=== PATIENT | male | born 1950 | race Caucasian/White ===

== ENCOUNTER 2019-04-01 16:12 | Inpatient (IN) ==
--- NOTE | 2019-04-01 16:23 | CT Scan Report ---
CT SCAN OF THE BRAIN WITHOUT IV CONTRAST CLINICAL HISTORY: Left-sided weakness. Slurred speech. COMPARISON STUDY: No priors. TECHNIQUE: Unenhanced axial CT scan of the brain is performed from the vertex to the skull base. A do se lowering technique was utilized adhering to the principles of ALARA. CT DOSE: 614.27 mGy.cm FINDINGS: Brain parenchyma: There are age-related involutional changes noting mild subcortical and periventric ular microangiopathic change. An 8 mm low-attenuation focus is suggested in the right aspect of the p ons on image #11. There is no hemorrhage, mass effect, or evidence of acute territorial ischemia by C T criteria. Haywood-white matter differentiation is preserved. No extra-axial fluid collection is seen. Ventricles, sulci, cisterns: Prominent secondary to involutional change. Intracranial vasculature: There is atherosclerotic calcification of the cavernous carotid and vertebr al arteries. Calvarium: Unremarkable. Sinuses and mastoids: The visualized paranasal sinuses are clear. The mastoid air cells are well pneu matized. Orbits: The bony orbits are grossly intact. IMPRESSION: 1. There is no hemorrhage, mass effect, or evidence of acute territorial ischemia by CT criteria. 2. An 8 mm low-attenuation focus is suggested in the leopoldo and may represent an age indeterminant lacu geraldo infarct. Electronically signed by: Carlos Toribio M.D. 04/01/2019 4:22 PM
[2019-04-01] MEDS ORDERED: ONDANSETRON INJ 2 MG/ML 2 ML VIAL ONE (16:24)
[2019-04-01] MEDS ORDERED: ONDANSETRON INJ 2 MG/ML 2 ML VIAL IV STA ×2 (16:26→16:52)
[2019-04-01] MEDS ORDERED: ALTEPLASE For Stroke IV STA (16:27)
[2019-04-01 16:37] LABS: Basophils # (auto) 0.04 K/uL (0-0.2); Basophils % (auto) 0.5 %; Eosinophils # (auto) 0.16 K/uL (0-0.5); Eosinophils % (auto) 1.8 %; Hematocrit (blood only) 41.4 % (42-52); Hemoglobin 14.8 g/dL (14.0-18.0); Immature Granulocytes # (auto) 0.02 K/uL (0.00-0.02); Immature Granulocytes % (auto) 0.2 %; Lymphocytes # (auto) 2.72 K/uL (1.2-3.4); Lymphocytes % (auto) 30.7 %; Mean Corpuscular Hemoglobin 30.6 pg (25-34); Mean Corpuscular Hgb Conc 35.7 g/dL (32-36); Mean Corpuscular Volume 85.7 fL (80-100); Mean Platelet Volume 10.1 fL (7.4-10.4); Monocytes # (auto) 0.58 K/uL (0.11-0.59); Monocytes % (auto) 6.5 %; Neutrophils # (auto) 5.34 K/uL (1.4-6.5); Neutrophils % (auto) 60.3 %; Platelet Count 187 K/uL (130-400); RDW Coefficient of Variation 12.9 % (11.5-14.5); RDW Standard Deviation 40.9 fL (36.4-46.3); Red Blood Count 4.83 M/uL (4.7-6.1); White Blood Count 8.86 K/uL (4.8-10.8)
[2019-04-01] MEDS ORDERED: Alteplase Bolus 9 MG in SYRINGE 0 ML IV ONE (16:38)
[2019-04-01] MEDS ORDERED: PRIMARY PLUMSET, PE LINED TUBING, 113 IN, NON-DEHP (2260-0500) IV ONE (16:39)
[2019-04-01] MEDS ORDERED: ALTEPLASE, RECOMBINANT 81 MG in EMPTY BAG 0 ML IV ONE (16:39)
[2019-04-01 16:54] LABS: INR 1.1 (0.9-1.1); Partial Thromboplastin Ratio 0.9; Partial Thromboplastin Time 24.2 Seconds (21.0-31.0); Prothrombin Time 11.1 Seconds (9.0-12.0)
[2019-04-01 16:55] LABS: Alanine Aminotransferase 28 U/L (12-78); Albumin Level 4.3 gm/dl (3.4-5.0); Aspartate Aminotransferase 17 U/L (15-37); BUN Creatinine Ratio 14.7 (10-20); Blood Urea Nitrogen 16 mg/dl (7-18); Calcium 9.4 mg/dl (8.5-10.1); Carbon Dioxide 26 mmol/L (21-32); Chloride 105 mmol/L (98-107); Creatinine Clr Calc Pharmacy 84.3 ml/min; Est GFR (African American) 80.6; Est GFR (Non-African American) 69.6; Glucose 103 mg/dl (70-99); Magnesium 2.1 mg/dl (1.8-2.4); Potassium 3.2 mmol/L (3.5-5.1); Sodium 140 mmol/L (136-145)
[2019-04-01 17:00] LABS: Albumin Globulin Ratio 1.3 (0.9-2); Alkaline Phosphatase 85 U/L (45-117); Bilirubin,Total 0.5 mg/dl (0.2-1); Globulin 3.3 gm/dl (2.5-4.0); Total Protein 7.6 gm/dl (6.4-8.2); Troponin I < 0.015 ng/ml (0-0.045)
[2019-04-01] MEDS: SODIUM CHLORIDE 0.9% 500 ML IV SCH (17:00)
--- NOTE | 2019-04-01 17:13 | XRay Report ---
SINGLE VIEW CHEST CLINICAL HISTORY: Dyspnea. FINDINGS: 2 AP, portable, upright chest radiographs are obtained. No prior studies are available for comparison at the time of dictation. The examination is degraded by portable technique and patient ro tation. The heart is enlarged. The pulmonary vasculature is noncongested. There is bibasilar atelecta sis. The lungs and pleural spaces are otherwise clear. No pneumothorax is seen. The skeletal structur es appear osteopenic. The bony thorax is grossly intact. IMPRESSION: Cardiomegaly with no acute cardiopulmonary abnormality. Electronically signed by: Carlos Toribio M.D. 04/01/2019 5:11 PM
[2019-04-01] MEDS ORDERED: PROMETHAZINE HCL 6.25 MG in SODIUM CHLORIDE 0.9% 50 ML IV STA (17:18)
[2019-04-01] MEDS ORDERED: PROMETHAZINE 6.25 MG/50.25 ML NSS IV ONE (17:29)
[2019-04-01] MEDS ORDERED: POTASSIUM CHLORIDE / WTR 10 MEQ/100 ML PLCT IV ONE (17:44)
[2019-04-01] MEDS ORDERED: HydrALAZINE HCL 20 MG/ML VIAL IV STA (17:46)
--- NOTE | 2019-04-01 18:07 | History & Physical Report ---
Date of Service April 01, 2019 Assessment & Plan (1) Ischemic stroke: This is a 68-year-old male with significant PMH of HTN, HLD, GERD, AAA 3.6 cm monitored annually, prediabetes, history of nephrolithiasis who presents to [facility] ED secondary to strokelike symptoms 1.5 hours prior to arrival. Stroke alert initiated [facility] [address] brain negative for acute hemorrhage, but did reveal 8 mm low-tension focus in the right leopoldo. Pt met criteria for TPA administered 1641 with spontaneous improvement to RLE/RUE weakness and numbness along with slurred speech Continues with mild dysarthria and c/o difficulty swallowing CBC and CMP relatively unremarkable except for mild hypokalemia K 3.2 Admit to ICU for 24hr post TPA protocol Maintain SBP < 180/105 Hydralazine 10mg IV x 1 Stat given in ED due to 200s/110s Hydralazine 10mg q6hr prn SBP > 180 NPO for now pt passed dysphagia screen in ED but c/o trouble swallowing, freq coughing and noticeable L facial droop Repeat CT head in 24 hr MRI brain ECHO Carotid Doppler Fasting lipid panel, A1C Increase atorvastatin to 80mg daily He is on ASA 81mg at baseline - Hold ASA first 24 hours will need dual antiplatelet therapy after repeat CT negative IVF 80cc/hr per tele neurologist Neuro checks/ aspiration precautions PT/OT/ST consulted (2) Hypokalemia: K 3.2 replete with KCL 10meq IV x 3 repeat bmp in a.m. (3) HTN (hypertension): Patient significantly hypertensive in ED s/p TPA Received IV hydralazine 10 mg x 1 Hydralazine 10 mg IV as needed for SBP greater than 180 Maintain BP less than 180/105 further management per ICU (4) HLD (hyperlipidemia): on atorvastatin 20mg at outpt increase to 80mg for high intensity statin (5) Pre-diabetes: Last A1C 5.7 02/2019 repeat a1c in a.m. ICU hyperglycemic protocol (6) GERD (gastroesophageal reflux disease): On omeprazole as out pt place on IV [id number] while NPO (7) DVT prophylaxis: SCD/TEDS Disposition: admitted to ICU s/p TPA; case management consulted Follow up: PCP Dr. Leighann Colunga upon discharge along with appropriate neurology follow up Patient was seen and examined in collaboration with Dr. Beltran, please see addendum Starting 04/02/19 patient will be under the care of Dr. Davila History of Present Illness Chief Complaint: Stroke like sx 1.5 hr [employer]. Primary Care Provider: Juanita Colunga DO This is a 68-year-old male with significant PMH of HTN, HLD, GERD, AAA 3.6 cm monitored annually, prediabetes, history of nephrolithiasis who presents to [facility] ED secondary to strokelike symptoms 1.5 hours prior to arrival. was at bedside. He was sitting at his computer when his tongue felt, "heavy." He further began experiencing right upper and lower extremity weakness, numbness, " my whole right side went numb." noticed patient having significant slurred speech. EMS was called and stroke alert was initiated. In ED patient underwent CT scan of brain which revealed 8 mm low attention focus in the right leopoldo, but no evidence of hemorrhage. He met criteria for TPA; therefore, this was administered at 16:42. He had spontaneous resolution of right lower extremity and upper extremity numbness/weakness and improvement in speech. After administration he did have significant nausea and therefore Zofran and Phenergan were also administered. During ED evaluation he did have episode of bradycardia with heart rates in high 30s, low 40s which was felt to be secondary to vagal stimulation due to nausea and diaphoresis. Symptoms resolved transiently. During my evaluation patient feels much improved, but very drowsy. He is complaining of right calf cramping. He denies f/c/s, recent illness, dizziness, lightheadedness, syncope, change in vision, change in hearing, chest pain, shortness breath, cough, hemoptysis, palpitations, nausea, vomiting, abdominal pain, change in bowel or urinary habits. He does currently feel he is having difficulty swallowing. He denies hx of CVA or family hx of CVA. Allergies Allergy/AdvReac Type Severity Reaction Status Date / Time No Known Allergies Allergy Verified 04/01/19 16:30 Home Medications Home Medications Medication Instructions Recorded Confirmed Type aspirin 81 mg PO QAM 07/29/18 04/01/19 History amlodipine 5 mg PO DAILY 04/01/19 04/01/19 History atorvastatin 20 mg PO DAILY 04/01/19 04/01/19 History hydrochlorothiazide 12.5 mg PO DAILY 04/01/19 04/01/19 History lisinopril 30 mg PO BID 04/01/19 04/01/19 History omeprazole 20 mg PO DAILY 04/01/19 04/01/19 History Past Med/Surg History Medical History HLD (hyperlipidemia) GERD (gastroesophageal reflux disease) AAA (abdominal aortic aneurysm) 3.6 cm monitored annually with US - last 06/2018 History of nephrolithiasis Pre-diabetes Ischemic stroke Kidney stones HTN (hypertension) Surgical History History of arthroscopic surgery of shoulder History of lumbar laminectomy No pertinent past surgical history Family History Father Throat cancer Mother Dementia Social History Preferred Language: Nicaraguan Communication Ability: Effective Careers Counsellor Required: No Beliefs That Will Affect Care: None marital status: Current Living Situation: Spouse Feels Safe at Home: Yes Smoking Status: Never smoker packs per day: 1 ; Hx Alcohol Use: No Hx Substance Use: No Review of Systems Review of Systems: All systems reviewed & are unremarkable except as noted in HPI & below Physical Exam Physical Exam: Constitutional: WD/WN, fatigue/ill appearing male, vitals as above, NAD, sitting up in bed, pleasant, conversing easily Head: Normocephalic, Atraumatic Eyes: PERRL, conjunctivae normal, anicteric sclerae, slight L eye ptosis ENMT: external ear and nose normal, oropharynx dry mucous membranes Neck: trachea midline, no thyromegaly normal visual inspection Respiratory: normal respiratory effort, lungs clear to auscultation, no wheeze, rales, rhonchi. Normal insp/exp effort, no accessory muscle use Cardiovascular: RRR, no murmur, no edema Vessels: no JVD or carotid bruit Chest: normal inspection of chest Abdomen: normal bowel sounds, soft, nontender, no hepatosplenomegaly Musculoskeletal: no cyanosis or clubbing, extremities motor strength 5/5 Skin: no rashes, warm and dry normal turgor Neurologic: PERRL, EOMI, accommodation nl, mild left facial droop with mild residual dysarthria CN's II-XI intact bilaterally and moves all extremities, point to point intact, negative pronator drift Psychiatric: A+Ox3, euthymic affect Lymphatic: no cervical or axillary lymphadenopathy : deferred Results & Data Vital Signs (Past 12 Hours) Vital Signs Temp Pulse Pulse Resp BP BP Pulse Ox 04/01/19 17:31 76 21 199/105 H 92 04/01/19 17:30 68 14 99 04/01/19 17:17 73 20 182/97 H 100 04/01/19 17:15 68 21 176/116 H 04/01/19 17:13 61 178/77 H 99 04/01/19 17:12 62 14 178/77 H 99 04/01/19 17:02 73 100 04/01/19 17:00 75 157/89 H 100 04/01/19 16:59 72 162/95 H 100 04/01/19 16:57 70 19 157/89 H 99 04/01/19 16:51 68 177/95 H 100 04/01/19 16:50 63 199/115 H 99 04/01/19 16:47 70 70 19 181/104 H 181/104 H 98 04/01/19 16:45 60 99 04/01/19 16:42 70 19 177/91 H 98 04/01/19 16:34 91 04/01/19 16:32 59 L 154/94 H 95 04/01/19 16:31 63 98 04/01/19 16:22 59 L 159/97 H 90 04/01/19 16:12 36.4 C L 59 L 22 159/97 H 91 Laboratory Results Short CBC 04/01/19 Range/Units 16:23 WBC 8.86 (4.8-10.8) K/uL Hgb 14.8 (14.0-18.0) g/dL Hct 41.4 L (42-52) % Plt Count 187 (130-400) K/uL BMP 04/01/19 16:23 Sodium 140 Potassium 3.2 L Chloride 105 Carbon Dioxide 26 BUN 16 Creatinine 1.10 Glucose 103 H Calcium 9.4 Cardiac Enzymes 04/01/19 Range/Units 16:23 Troponin I < 0.015 (0-0.045) ng/ml Liver Function 04/01/19 Range/Units 16:23 Total Bilirubin 0.5 (0.2-1) mg/dl AST 17 (15-37) U/L ALT 28 (12-78) U/L Alkaline Phosphatase 85 (45-117) U/L Albumin 4.3 (3.4-5.0) gm/dl Diagnostic Findings CXR: IMPRESSION: Cardiomegaly with no acute cardiopulmonary abnormality. Head CT: IMPRESSION: 1. There is no hemorrhage, mass effect, or evidence of acute territorial ischemia by CT criteria. 2. An 8 mm low-attenuation focus is suggested in the leopoldo and may represent an age indeterminant lacunar infarct. Medications Administered Sodium Chloride (Nss) 500 mls @ 80 mls/hr IV .[id number] RITCHIE Stop: 05/01/19 17:14 Last Admin: 04/01/19 17:00 Dose: 80 mls/hr Documented by: [id number] Potassium Chloride (K Rohit / Wtr) 10 meq in 100 mls @ 100 mls/hr IV ONE ONE Stop: 04/01/19 18:43 Last Admin: 04/01/19 17:47 Dose: 100 mls/hr Documented by: [id number] Discontinued Medications Alteplase, Recombinant (Activase For Stroke) 1 ea IV NOW STA; Protocol Stop: 04/01/19 16:28 Last Admin: 04/01/19 16:59 Dose: Not Given Documented by: [id number] Hydralazine HCl (Hydralazine Hcl) 10 mg IV NOW STA Stop: 04/01/19 17:47 Last Admin: 04/01/19 17:57 Dose: 10 mg Documented by: [id number] Alteplase, Recombinant 81 mg/ (EMPTY BAG) 81 mls @ 81 mls/hr IV ONCE ONE Stop: 04/01/19 16:40 Last Infusion: 04/01/19 17:31 Dose: 0 mls/hr Documented by: [id number] Cosigned by: [id number] Admin: 04/01/19 16:46 Dose: 81 mls/hr Documented by: [id number] Cosigned by: [id number] Alteplase, Recombinant 9 mg/ (Syringe) 9 mls @ 9 mls/min IV ONCE ONE Stop: 04/01/19 16:39 Last Admin: 04/01/19 16:42 Dose: 9 mls/min Documented by: [id number] Cosigned by: [id number] Promethazine HCl 6.25 mg/ (Sodium Chloride) 50.25 mls @ 201 mls/hr IV NOW STA Stop: 04/01/19 17:32 Last Admin: 04/01/19 17:30 Dose: Not Given Documented by: [id number] Ondansetron HCl (Zofran) Confirm Administered Dose 4 mg .ROUTE .STK-MED ONE Stop: 04/01/19 16:25 Last Admin: 04/01/19 16:33 Dose: Not Given Documented by: [id number] Ondansetron HCl (Zofran) 4 mg IV NOW STA Stop: 04/01/19 16:27 Last Admin: 04/01/19 16:25 Dose: 4 mg Documented by: [id number] Ondansetron HCl (Zofran) 4 mg IV NOW STA Stop: 04/01/19 16:53 Last Admin: 04/01/19 16:54 Dose: 4 mg Documented by: [id number] Promethazine HCl (Phenergan) Confirm Administered Dose 6.25 mg IV .STK-MED ONE Stop: 04/01/19 17:30 Last Admin: 04/01/19 17:30 Dose: 6.25 mg Documented by: [id number] ECG Rate (beats per minute): 63 Rhythm: normal sinus Code Status & VTE Plan Code Status Full Code VTE Prophylaxis Plan VTE Prophylaxis will be ordered: Yes Supervising Physician Co-Signing Physician Notes I, Dr. Luca Beltran, have seen and examined the patient with physician administration assistant and would like to comment that: Dwight Patino is a 68 year old male with sudden right sided weakness and speech being affected and because of strong suspicion of ACUTE STROKE and patient was ADMINISTERED TPA in the ED. During the infusion of TPA, patients neurological symptoms appeared to have resolved as per emergency room medical staff. Patients blood pressure noted to be very elevated above systolic of 200. Patient was given IV hydralazine as recommended by ICU physician. As per A [place] [employer] there are some recommendations to keep blood pressure less than 180/105 for 24 hours after administration of TPA (V alteplase). Home dose aspirin to be held for now Patient will continued to be under the care of ICU medical staff and ICU physician since he is after TPA as per hospital protocol. Review of the admission CT head imaging: (There is no hemorrhage, mass effect, or evidence of acute territorial ischemia by CT criteria. An 8 mm low-attenuation focus is suggested in the leopoldo and may represent an age indeterminant lacunar infarct.) is generally unrevealing as to the location of stroke Routine Brain MRI is ordered to follow up on further brain imaging. Echocardiogram is ordered to rule out any potential embolic source of stroke or cardiac anomalies such as atrial septal defect Increase to high intensity statin Speech/swallow evaluations, PT/OT evaluations Monitor and replete any electrolyte deficiencies Agree with other assessment and plans and history as documented by physician administration assistant On physical exam in the ED General: no acute distress, patient appears to be comfortable Neck: normal visual inspection Eyes: ocular movements intact, pupils are equal and reactive to light Lungs: clear to auscultation bilaterally, no wheezing, no stridor Heart: heart rate is regular in rate and rhythm Abdomen: soft, nontender, positive bowel sounds Extremities/Neuro: no gross facial droop, no tongue deviation, muscle strength is 5/5 and symmetric of upper and lower extremities when patient was examined by hospitalist team after the TPA Patient currently doing well in the ICU bed My colleague Dr. Davila will be the hospitalist physician for the patient starting on 04/02/19
--- NOTE | 2019-04-01 18:24 | Critical Care Consultation ---
Date of Consultation April 01, 2019 Assessment & Plan (1) Ischemic stroke: --Ischemic stroke CT head did not show any acute hemorrhage or acute stroke, age indeterminate lacunar infarct in the leopoldo Patient got TPA in the ER. Keep systolic blood pressure less than 180 and diastolic blood pressure less than 105 Monitor neurological checks, aspiration precautions Keep patient n.p.o. for the time being IV hydralazine 10 mg every 6 hours for systolic blood pressure greater than 180 The blood pressure still stays high we will start the patient on clevidipine drip. Patient has baseline low heart rate will keep away from beta-blockers. Keep blood sugar between 140-[address] head in the morning. Patient was already on aspirin, should be started on clopidogrel within 48 hours. Resume aspirin after [address] head negative EKG: Normal sinus rhythm, no ST-T wave changes appreciated, left axis deviation, heart rate of 63, QTc 444 --Hypokalemia Will replace it Follow magnesium and phosphorus --History of hypertension Hold p.o. medications for the time being --Dyslipidemia On atorvastatin at home Will need higher dose of atorvastatin once he is able to swallow -- Speech eval in the morning --IPC's for DVT prophylaxis Present on Admission?: Yes (2) HTN (hypertension): History of Present Illness Reason for Consultation: Ischemic stroke status post TPA History of Present Illness 68-year-old male with past medical history of hypertension, GERD, dyslipidemia abdominal aortic aneurysm 3.6 cm, nephrolithiasis was brought in to the hospital with strokelike symptoms 1.5 IR prior to arrival. As per the patient was sitting on a computer where he suddenly sat feeling warm diaphoretic he denies any chest pain but his speech was slurred. He started experiencing right upper and lower extremity numbness. In the ED patient met the criteria for TPA and was given TPA at 1642. There was spontaneous resolution of the right lower extremity and right upper extremity numbness and weakness. In the ED after TPA was complaining of nausea for which he got Zofran. He did have one episode of bradycardia where he went into high 30s low 40s which resolved on its own. Approximately 1 week ago he had similar symptoms but they were not this pronounced. At the time of examination patient was drowsy but arousable and answering all the questions appropriately. He did still have slurred speech. Tongue was deviated to the left. Left labial fold and left angle of the mouth flat. Left eye ptosis appreciated. Vision intact, patient able to move all his extremities with 5 out of 5 strength. Patient denied any headache, no chest pain, no abdominal pain. Nauseous. At the same time nurse offered him some free water to which he started choking. He does state that he has difficulty swallowing. Denies any shortness of breath, no cough. 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 Denies any allergies to any medication. Allergies Allergy/AdvReac Type Severity Reaction Status Date / Time No Known Allergies Allergy Verified 04/01/19 16:30 Home Medications Home Medications Medication Instructions Recorded Confirmed Type aspirin 81 mg PO QAM 07/29/18 04/01/19 History amlodipine 5 mg PO DAILY 04/01/19 04/01/19 History atorvastatin 20 mg PO DAILY 04/01/19 04/01/19 History hydrochlorothiazide 12.5 mg PO DAILY 04/01/19 04/01/19 History lisinopril 30 mg PO BID 04/01/19 04/01/19 History omeprazole 20 mg PO DAILY 04/01/19 04/01/19 History Patient History Medical History Kidney stones HTN (hypertension) Surgical History No pertinent past surgical history Family History Other No significant family history Social History Preferred Language: Palestinian marital status: Current Living Situation: Spouse Feels Safe at Home: Yes Smoking Status: Former smoker Review of Systems Review of Systems: All systems reviewed & are unremarkable except as noted in HPI & below Physical Exam Constitutional: WD/WN, vitals as above well developed and well nourished Eyes: PERRL, conjunctivae normal, anicteric sclerae + eyelid abnormality (Ptosis left eye) ENMT: Mouth: + lip abnormality (Left angle of the mouth flat and left labial fold flat) Mallampati Class: III Respiratory: normal respiratory effort Auscultation: + crackles (Minimal bilateral lower lobes); no rhonchi and no wheezes Cardiovascular: RRR, no murmur, no edema Gastrointestinal (Abdomen): normal bowel sounds, soft, nontender, no hepatosplenomegaly Musculoskeletal: no cyanosis or clubbing, extremities motor strength 5/5 Skin: no rashes, warm and dry Neurologic: normal touch/pain/proprioception and awake Speech / Cognition: + abnormal speech (Slurred) Cranial Nerves: PERRL, normal accommodation, EOM intact bilaterally and tongue midline (Deviated to the left) Psychiatric: A+Ox3, euthymic affect Lymphatic: no cervical or axillary lymphadenopathy Results & Data Vital Signs (Past 12 Hours) Vital Signs Temp Pulse Pulse Resp BP BP Pulse Ox 04/01/19 17:31 76 21 199/105 H 92 04/01/19 17:30 68 14 99 04/01/19 17:17 73 20 182/97 H 100 04/01/19 17:15 68 21 176/116 H 04/01/19 17:13 61 178/77 H 99 04/01/19 17:12 62 14 178/77 H 99 04/01/19 17:02 73 100 04/01/19 17:00 75 157/89 H 100 04/01/19 16:59 72 162/95 H 100 04/01/19 16:57 70 19 157/89 H 99 04/01/19 16:51 68 177/95 H 100 04/01/19 16:50 63 199/115 H 99 04/01/19 16:47 70 70 19 181/104 H 181/104 H 98 04/01/19 16:45 60 99 04/01/19 16:42 70 19 177/91 H 98 04/01/19 16:34 91 04/01/19 16:32 59 L 154/94 H 95 04/01/19 16:31 63 98 04/01/19 16:22 59 L 159/97 H 90 04/01/19 16:12 36.4 C L 59 L 22 159/97 H 91 04/01/19 16:23 04/01/19 16:23 Coding Level of Care Code New Pt Critical Care 1st 30-74 mins Patient Type New Diagnoses Ischemic stroke I63.9 HTN (hypertension) I10 Time Spent (min) 45
[2019-04-01] MEDS ORDERED: ICU PROTOCOL FOR HYPERGLYCEMIA PRN (19:14)
[2019-04-01 19:32] LABS: Appearance Urine Clear (Clear); Bilirubin Urine Negative (Negative); Blood Urine Negative (Negative); Color Urine Yellow; Glucose Urine UA Negative (Negative); Ketones Urine 1+ (Negative); Leukocyte Esterase Urine Negative (Negative); Nitrite Urine Negative (Negative); Protein Urine Negative (Negative); Specific Gravity Urine 1.016 (1.000-1.030); Urobilinogen Urine Negative (Negative)
[2019-04-01] MEDS ORDERED: PHARMACIST DISCHARGE MED REC CONSULT PRN (19:36)
[2019-04-01] MEDS: POTASSIUM CHLORIDE / WTR 10 MEQ/100 ML PLCT IV SCH ×2 (19:59→21:09)
[2019-04-01] MEDS: ONDANSETRON INJ 2 MG/ML 2 ML VIAL IV PRN (20:18)
[2019-04-01] MEDS ORDERED: LORazepam 0.25 MG/0.5 ML VIAL IV PRN (21:41)
--- NOTE | 2019-04-01 21:47 | Emergency Department Note ---
Entered by Jameel Joseph acting as a scribe for Carlos Kirk MD History of Present Illness General Chief complaint: Stroke Alert Stated complaint: STROKE ALERT Source: family and EMS History of Present Illness Onset (ago): minute(s) (1450) Location: upper extremity, lower extremity and right Pain Consistency: + constant Maximum Pain Intensity: 0 Quality: + other (weakness) Associated symptoms: + other (very sweaty, difficulty with speech and finding his words, very nauseous) The patient is a 68 y/o male who presents to the ED w/ CC of constant right sided weakness to the arm and leg beginning at 1450. EMS states the patient was baseline until 1450 ([id number] prior to arrival and evaluation). They report the patient was suddenly very sweaty, had difficulty with speech and finding his words, right arm and right leg weakness, and he became very nauseous. The ambulance arrived on scene and felt the patient had signs consistent with a stroke. A stroke alert was called. Upon arrival, the patient's symptoms were still present, and he and his confirmed the story. The patient is fairly healthy without a history of a stroke. The patient's adds that about a month ago, he had a few days of speech difficulty that lasted a few minutes each day. She notes it resolved on its own, and he was never evaluated for it. Home Medications Home Medications Medication Instructions Recorded Confirmed Type aspirin 81 mg PO QAM 07/29/18 04/01/19 History amlodipine 5 mg PO DAILY 04/01/19 04/01/19 History atorvastatin 20 mg PO DAILY 04/01/19 04/01/19 History hydrochlorothiazide 12.5 mg PO DAILY 04/01/19 04/01/19 History lisinopril 30 mg PO BID 04/01/19 04/01/19 History omeprazole 20 mg PO DAILY 04/01/19 04/01/19 History Allergies Allergy/AdvReac Type Severity Reaction Status Date / Time No Known Allergies Allergy Verified 04/01/19 16:30 Past Med/Surg History Medical History HLD (hyperlipidemia) GERD (gastroesophageal reflux disease) AAA (abdominal aortic aneurysm) 3.6 cm monitored annually with US - last 06/2018 History of nephrolithiasis Pre-diabetes Ischemic stroke Kidney stones HTN (hypertension) Surgical History History of arthroscopic surgery of shoulder History of lumbar laminectomy No pertinent past surgical history Family History Father Throat cancer Mother Dementia Social History Preferred Language: Jamaican Communication Ability: Effective Group President Required: No Beliefs That Will Affect Care: None marital status: Current Living Situation: Spouse Feels Safe at Home: Yes Smoking Status: Never smoker packs per day: 1 ; Hx Alcohol Use: No Hx Substance Use: No Review of Systems See HPI for pertinent positives & negatives. and A total of 10 systems reviewed and were otherwise negative Physical Exam Vital Signs Vital Signs - 24 hr 04/01/19 16:12 04/01/19 16:22 04/01/19 16:31 Temperature 36.4 C L Temperature Source Oral Sepsis Recent Fever Within 48 Hours No Sepsis New/Unexplained Change in Mental Status No Sepsis Action Taken by Nursing No Action Required Oxygen Flow Rate - Titration Pulse Oximetry Post Tiitration Pulse Rate 59 L 59 L 63 Pulse Rate [Apical] Pulse Rate from SpO2 Sensor 60 63 Pulse Rhythm Regular Pulse Rhythm [Apical] Respiratory Rate 22 Respiratory Effort / Characteristics Non-Labored Spontaneous Respiratory Depth Normal Blood Pressure 159/97 H 159/97 H Blood Pressure [Right Arm] Blood Pressure Mean 117 117 Blood Pressure Mean [Right Arm] Blood Pressure Position Lying Blood Pressure Position [Right Arm] Pulse Oximetry 91 90 98 Oxygen Delivery Method Room Air Nasal Cannula Oxygen Flow Rate 2 04/01/19 16:32 04/01/19 16:34 04/01/19 16:42 Temperature Temperature Source Sepsis Recent Fever Within 48 Hours Sepsis New/Unexplained Change in Mental Status Sepsis Action Taken by Nursing Oxygen Flow Rate - Titration 2 Pulse Oximetry Post Tiitration 99 Pulse Rate 59 L Pulse Rate [Apical] 70 Pulse Rate from SpO2 Sensor 59 L Pulse Rhythm Pulse Rhythm [Apical] Respiratory Rate 19 Respiratory Effort / Characteristics Respiratory Depth Blood Pressure 154/94 H Blood Pressure [Right Arm] 177/91 H Blood Pressure Mean 114 Blood Pressure Mean [Right Arm] 119 Blood Pressure Position Blood Pressure Position [Right Arm] Pulse Oximetry 95 91 98 Oxygen Delivery Method Room Air Nasal Cannula Oxygen Flow Rate 0 2 04/01/19 16:45 04/01/19 16:47 04/01/19 16:50 Temperature Temperature Source Sepsis Recent Fever Within 48 Hours Sepsis New/Unexplained Change in Mental Status Sepsis Action Taken by Nursing Oxygen Flow Rate - Titration Pulse Oximetry Post Tiitration Pulse Rate 60 70 63 Pulse Rate [Apical] 70 Pulse Rate from SpO2 Sensor 60 68 66 Pulse Rhythm Pulse Rhythm [Apical] Regular Respiratory Rate 19 Respiratory Effort / Characteristics Respiratory Depth Normal Blood Pressure 181/104 H 199/115 H Blood Pressure [Right Arm] 181/104 H Blood Pressure Mean 129 143 Blood Pressure Mean [Right Arm] 129 Blood Pressure Position Blood Pressure Position [Right Arm] Sitting Pulse Oximetry 99 98 99 Oxygen Delivery Method Nasal Cannula Oxygen Flow Rate 2 04/01/19 16:51 04/01/19 16:57 04/01/19 16:59 Temperature Temperature Source Sepsis Recent Fever Within 48 Hours Sepsis New/Unexplained Change in Mental Status Sepsis Action Taken by Nursing Oxygen Flow Rate - Titration Pulse Oximetry Post Tiitration Pulse Rate 68 72 Pulse Rate [Apical] 70 Pulse Rate from SpO2 Sensor 69 72 Pulse Rhythm Pulse Rhythm [Apical] Respiratory Rate 19 Respiratory Effort / Characteristics Non-Labored Respiratory Depth Normal Blood Pressure 177/95 H 162/95 H Blood Pressure [Right Arm] 157/89 H Blood Pressure Mean 122 117 Blood Pressure Mean [Right Arm] 111 Blood Pressure Position Blood Pressure Position [Right Arm] Sitting Pulse Oximetry 100 99 100 Oxygen Delivery Method Nasal Cannula Oxygen Flow Rate 2 04/01/19 17:00 04/01/19 17:02 04/01/19 17:12 Temperature Temperature Source Sepsis Recent Fever Within 48 Hours Sepsis New/Unexplained Change in Mental Status Sepsis Action Taken by Nursing Oxygen Flow Rate - Titration Pulse Oximetry Post Tiitration Pulse Rate 75 73 Pulse Rate [Apical] 62 Pulse Rate from SpO2 Sensor 75 73 Pulse Rhythm Pulse Rhythm [Apical] Irregular Respiratory Rate 14 Respiratory Effort / Characteristics Non-Labored Respiratory Depth Normal Blood Pressure 157/89 H Blood Pressure [Right Arm] 178/77 H Blood Pressure Mean 111 Blood Pressure Mean [Right Arm] 110 Blood Pressure Position Blood Pressure Position [Right Arm] Sitting Pulse Oximetry 100 100 99 Oxygen Delivery Method Nasal Cannula Oxygen Flow Rate 04/01/19 17:13 04/01/19 17:15 04/01/19 17:17 Temperature Temperature Source Sepsis Recent Fever Within 48 Hours Sepsis New/Unexplained Change in Mental Status Sepsis Action Taken by Nursing Oxygen Flow Rate - Titration Pulse Oximetry Post Tiitration Pulse Rate 61 68 73 Pulse Rate [Apical] Pulse Rate from SpO2 Sensor 59 L 74 Pulse Rhythm Pulse Rhythm [Apical] Respiratory Rate 21 20 Respiratory Effort / Characteristics Respiratory Depth Blood Pressure 178/77 H 176/116 H 182/97 H Blood Pressure [Right Arm] Blood Pressure Mean 110 136 125 Blood Pressure Mean [Right Arm] Blood Pressure Position Blood Pressure Position [Right Arm] Pulse Oximetry 99 100 Oxygen Delivery Method Oxygen Flow Rate 04/01/19 17:30 04/01/19 17:31 04/01/19 17:39 Temperature Temperature Source Sepsis Recent Fever Within 48 Hours Sepsis New/Unexplained Change in Mental Status Sepsis Action Taken by Nursing Oxygen Flow Rate - Titration Pulse Oximetry Post Tiitration Pulse Rate 68 76 69 Pulse Rate [Apical] Pulse Rate from SpO2 Sensor 65 59 L 70 Pulse Rhythm Pulse Rhythm [Apical] Respiratory Rate 14 21 25 H Respiratory Effort / Characteristics Respiratory Depth Blood Pressure 199/105 H 212/110 H Blood Pressure [Right Arm] Blood Pressure Mean 136 144 Blood Pressure Mean [Right Arm] Blood Pressure Position Blood Pressure Position [Right Arm] Pulse Oximetry 99 92 100 Oxygen Delivery Method Oxygen Flow Rate 04/01/19 17:45 04/01/19 17:47 Temperature Temperature Source Sepsis Recent Fever Within 48 Hours Sepsis New/Unexplained Change in Mental Status Sepsis Action Taken by Nursing Oxygen Flow Rate - Titration Pulse Oximetry Post Tiitration Pulse Rate 72 79 Pulse Rate [Apical] Pulse Rate from SpO2 Sensor 74 81 Pulse Rhythm Pulse Rhythm [Apical] Respiratory Rate 22 24 Respiratory Effort / Characteristics Respiratory Depth Blood Pressure 227/113 H 215/105 H Blood Pressure [Right Arm] Blood Pressure Mean 151 141 Blood Pressure Mean [Right Arm] Blood Pressure Position Blood Pressure Position [Right Arm] Pulse Oximetry 100 100 Oxygen Delivery Method Oxygen Flow Rate GENERAL: Patient is in no acute distress. HEENT: No acute trauma, normocephalic atraumatic, mucous membranes moist, no nasal congestion, no scleral icterus. NECK: No stridor, no adenopathy, no meningismus, trachea is midline. LUNGS: Clear to auscultation bilaterally, no wheeze, no rhonchi, breath sounds equal. HEART: Without murmurs gallops or rubs, regular rate and rhythm. ABDOMEN: Soft, nontender, bowel sounds positive, no hernias, no peritonitis. EXTREMITIES: No cyanosis or edema, full range of motion of all the joints without pain or difficulty, no signs for acute trauma. NEUROLOGIC: Awake. Follows commands. Right arm and leg can barely be lifted off the bed. Subtle right facial droop present with speaking. He does have some subtle speech slur and some occasional difficulty finding his words. SKIN: No rash, no jaundice, mild diaphoresis. Course 1613: Past medical records reviewed. The patient was evaluated in room B01. A complete history and physical exam was performed. He was taken immediately to CT. 1620: I discussed the patient's case with Lalit Deweyhey Tele-stroke Neurology. He is aware of the patient's case. 1632: I spoke with again. He recommends the patient be given tPA. 1645: tPA administration has been started. 1651: The patient became very nauseated and started vomiting. He is still being evaluated by the neurologist. 1704: The patient is starting to regain movement of his right arm and leg. 1713: Dr. Morrow called back. The patient is back to baseline and is able to function normally. 1718: Upon reevaluation, the patient is resting comfortably. I discussed laboratory and radiographic results with the patient and his . They verbalized agreement of the treatment plan. The patient will be evaluated for further management and care. 1722: I discussed the patient's case with NATACHA Carrillo ospitalist - attending Dr. Beltran. She will admit the patient to the [facility] service, and he will be taken to the unit. 1818: The patient is still doing well and continues to improve. Administered Medications Atorvastatin Calcium (Lipitor) 20 mg PO QAM [facility] Stop: 05/02/19 08:59 Last Admin: 04/02/19 10:50 Dose: 20 mg Documented by: [id number] Sodium Chloride (Nss 1000ml) 1,000 mls @ 200 mls/hr IV .Q5H RITCHIE Stop: 05/02/19 04:14 Last Admin: 04/02/19 14:14 Dose: 200 mls/hr Documented by: [id number] Infusion: 04/02/19 13:19 Dose: 200 mls/hr Documented by: [id number] Admin: 04/02/19 10:49 Dose: 200 mls/hr Documented by: [id number] Infusion: 04/02/19 10:49 Dose: 200 mls/hr Documented by: [id number] Admin: 04/02/19 05:55 Dose: 200 mls/hr Documented by: [id number] Famotidine 20 mg/ Syringe 5 mls @ 2.5 mls/min IV BID RITCHIE Stop: 05/02/19 08:59 Last Admin: 04/02/19 10:50 Dose: 2.5 mls/min Documented by: [id number] Lorazepam (Ativan) 0.5 mg in 1 mls @ 0.5 mls/min IV Q6H PRN PRN Reason: Nausea Stop: 05/02/19 09:47 Last Admin: 04/02/19 10:53 Dose: 0.5 mls/min Documented by: [id number] Ioversol (Optiray 320 125ml) 125 ml IV ONCE PRN PRN Reason: Interaction Checking Stop: 04/06/19 02:30 Last Admin: 04/02/19 02:32 Dose: 118 ml Documented by: [id number] Ticagrelor (Brilinta) 90 mg PO BID RITCHIE Stop: 05/02/19 09:44 Last Admin: 04/02/19 11:08 Dose: 90 mg Documented by: [id number] Discontinued Medications Alteplase, Recombinant (Activase For Stroke) 1 ea IV NOW STA; Protocol Stop: 04/01/19 16:28 Last Admin: 04/01/19 16:59 Dose: Not Given Documented by: [id number] Aspirin (Aspirin) 300 mg MS ONE ONE Stop: 04/02/19 03:13 Last Admin: 04/02/19 03:35 Dose: 300 mg Documented by: [id number] Hydralazine HCl (Hydralazine Hcl) 10 mg IV NOW STA Stop: 04/01/19 17:47 Last Admin: 04/01/19 17:57 Dose: 10 mg Documented by: [id number] Alteplase, Recombinant 81 mg/ (EMPTY BAG) 81 mls @ 81 mls/hr IV ONCE ONE Stop: 04/01/19 16:40 Last Infusion: 04/01/19 17:31 Dose: 0 mls/hr Documented by: [id number] Cosigned by: [id number] Admin: 04/01/19 16:46 Dose: 81 mls/hr Documented by: [id number] Cosigned by: [id number] Alteplase, Recombinant 9 mg/ (Syringe) 9 mls @ 9 mls/min IV ONCE ONE Stop: 04/01/19 16:39 Last Admin: 04/01/19 16:42 Dose: 9 mls/min Documented by: [id number] Cosigned by: [id number] Sodium Chloride (Nss) 500 mls @ 200 mls/hr IV .Q2H30M RITCHIE Stop: 05/01/19 17:14 Last Infusion: 04/02/19 05:56 Dose: 0 mls/hr Documented by: [id number] Admin: 04/02/19 03:36 Dose: 200 mls/hr Documented by: [id number] Infusion: 04/02/19 03:34 Dose: 0 mls/hr Documented by: [id number] Admin: 04/01/19 17:00 Dose: 80 mls/hr Documented by: [id number] Promethazine HCl 6.25 mg/ (Sodium Chloride) 50.25 mls @ 201 mls/hr IV NOW STA Stop: 04/01/19 17:32 Last Admin: 04/01/19 17:30 Dose: Not Given Documented by: [id number] Potassium Chloride (K Rohit / Wtr) 10 meq in 100 mls @ 100 mls/hr IV ONE ONE Stop: 04/01/19 18:43 Last Infusion: 04/01/19 20:15 Dose: 0 mls/hr Documented by: [id number] Admin: 04/01/19 17:47 Dose: 100 mls/hr Documented by: [id number] Potassium Chloride (K Rohit / Wtr) 10 meq in 100 mls @ 100 mls/hr IV Q1H RITCHIE Stop: 04/01/19 21:39 Last Infusion: 04/01/19 22:31 Dose: 0 mls/hr Documented by: [id number] Admin: 04/01/19 21:09 Dose: 100 mls/hr Documented by: [id number] Infusion: 04/01/19 21:06 Dose: 0 mls/hr Documented by: [id number] Admin: 04/01/19 19:59 Dose: 100 mls/hr Documented by: [id number] Ranitidine HCl 50 mg/ Dextrose 102 mls @ 200 mls/hr IV DAILY RITCHIE Stop: 05/01/19 19:13 Last Infusion: 04/01/19 21:06 Dose: 0 mls/hr Documented by: [id number] Admin: 04/01/19 19:57 Dose: 200 mls/hr Documented by: [id number] Lorazepam (Ativan) 0.25 mg in 0.5 mls @ 0.5 mls/min IV UD PRN PRN Reason: Vertigo Stop: 04/02/19 02:00 Last Admin: 04/01/19 22:57 Dose: 0.5 mls/min Documented by: [id number] Sodium Chloride (Nss 1000ml) 500 mls @ 999 mls/hr IV .Q31M ONE Stop: 04/02/19 02:41 Last Infusion: 04/02/19 03:37 Dose: 0 mls/hr Documented by: [id number] Admin: 04/02/19 02:58 Dose: 999 mls/hr Documented by: [id number] Sodium Chloride (Nss 1000ml) 500 mls @ 999 mls/hr IV .Q31M ONE Stop: 04/02/19 03:09 Last Infusion: 04/02/19 03:38 Dose: 0 mls/hr Documented by: [id number] Admin: 04/02/19 02:57 Dose: 999 mls/hr Documented by: [id number] Albumin Human (Albumin 5%) 250 mls @ 500 mls/hr IV ONE ONE Stop: 04/02/19 03:29 Last Infusion: 04/02/19 03:34 Dose: 0 mls/hr Documented by: [id number] Admin: 04/02/19 02:56 Dose: 500 mls/hr Documented by: [id number] Norepinephrine Bitartrate 8 mg (/ Dextrose) 508 mls @ 138.14 mls/hr IV .Q3H41M PRN; Protocol PRN Reason: TITRATE Stop: 05/02/19 03:12 Last Titration: 04/02/19 14:39 Dose: 0 mcg/kg/min, 0 mls/hr Documented by: [id number] Titration: 04/02/19 14:34 Dose: 0.35 mcg/kg/min, 151.1 mls/hr Documented by: [id number] Titration: 04/02/19 13:30 Dose: 0.32 mcg/kg/min, 138.1 mls/hr Documented by: [id number] Titration: 04/02/19 13:00 Dose: 0.3 mcg/kg/min, 129.5 mls/hr Documented by: [id number] Titration: 04/02/19 12:45 Dose: 0.28 mcg/kg/min, 120.9 mls/hr Documented by: [id number] Titration: 04/02/19 12:15 Dose: 0.27 mcg/kg/min, 116.6 mls/hr Documented by: [id number] Titration: 04/02/19 12:04 Dose: 0.25 mcg/kg/min, 107.9 mls/hr Documented by: [id number] Admin: 04/02/19 10:48 Dose: 0.22 mcg/kg/min, 95 mls/hr Documented by: [id number] Cosigned by: [id number] Titration: 04/02/19 10:36 Dose: 0.21 mcg/kg/min, 90 mls/hr Documented by: [id number] Cosigned by: [id number] Titration: 04/02/19 07:18 Dose: 0.21 mcg/kg/min, 90 mls/hr Documented by: [id number] Titration: 04/02/19 07:11 Dose: 0.19 mcg/kg/min, 80 mls/hr Documented by: [id number] Cosigned by: [id number] Titration: 04/02/19 06:37 Dose: 0.19 mcg/kg/min, 80 mls/hr Documented by: [id number] Titration: 04/02/19 06:17 Dose: 0.16 mcg/kg/min, 70 mls/hr Documented by: [id number] Titration: 04/02/19 06:07 Dose: 0.14 mcg/kg/min, 62 mls/hr Documented by: [id number] Titration: 04/02/19 03:59 Dose: 0.12 mcg/kg/min, 52.1 mls/hr Documented by: [id number] Admin: 04/02/19 03:26 Dose: 0.05 mcg/kg/min, 21.6 mls/hr Documented by: [id number] Cosigned by: [id number] Sodium Chloride (Nss 1000ml) 500 mls @ 999 mls/hr IV .Q31M ONE Stop: 04/02/19 12:41 Last Infusion: 04/02/19 13:10 Dose: 0 mls/hr Documented by: [id number] Admin: 04/02/19 12:15 Dose: 999 mls/hr Documented by: [id number] Norepinephrine Bitartrate 8 mg (/ Sodium Chloride) 508 mls @ 176.99 mls/hr IV .Q2H53M PRN; Protocol PRN Reason: TITRATE Stop: 05/02/19 14:15 Last Titration: 04/02/19 16:55 Dose: 0.41 mcg/kg/min, 177 mls/hr Documented by: [id number] Titration: 04/02/19 15:45 Dose: 0.39 mcg/kg/min, 168.4 mls/hr Documented by: [id number] Titration: 04/02/19 15:13 Dose: 0.37 mcg/kg/min, 159.7 mls/hr Documented by: [id number] Cosigned by: [id number] Admin: 04/02/19 14:37 Dose: 0.35 mcg/kg/min, 151.1 mls/hr Documented by: [id number] Cosigned by: [id number] Ondansetron HCl (Zofran) Confirm Administered Dose 4 mg .ROUTE .STK-MED ONE Stop: 04/01/19 16:25 Last Admin: 04/01/19 16:33 Dose: Not Given Documented by: [id number] Ondansetron HCl (Zofran) 4 mg IV NOW STA Stop: 04/01/19 16:27 Last Admin: 04/01/19 16:25 Dose: 4 mg Documented by: [id number] Ondansetron HCl (Zofran) 4 mg IV NOW STA Stop: 04/01/19 16:53 Last Admin: 04/01/19 16:54 Dose: 4 mg Documented by: [id number] Ondansetron HCl (Zofran) 4 mg IV Q4H PRN PRN Reason: Nausea Stop: 05/01/19 19:54 Last Admin: 04/02/19 08:52 Dose: 4 mg Documented by: [id number] Admin: 04/02/19 04:27 Dose: 4 mg Documented by: [id number] Admin: 04/01/19 20:18 Dose: 4 mg Documented by: [id number] Promethazine HCl (Phenergan) Confirm Administered Dose 6.25 mg IV .STK-MED ONE Stop: 04/01/19 17:30 Last Admin: 04/01/19 17:30 Dose: 6.25 mg Documented by: [id number] Medical Decision Making Differential Diagnosis Differential diagnosis includes: stroke, intracranial bleeding, TIA, AR, dysrhythmia, electrolyte imbalance, migraine. Medical Records Attestation: I reviewed the patient's medical records. Home Medications Current Medication List: was personally reviewed by me Laboratory Data Attestation: I reviewed the patient's lab results. Result diagrams: 04/01/19 16:23 04/01/19 16:23 Lab Results 04/01/19 04/01/19 04/01/19 Range/Units 16:23 16:23 16:23 WBC 8.86 (4.8-10.8) K/uL RBC 4.83 (4.7-6.1) M/uL Hgb 14.8 (14.0-18.0) g/dL Hct 41.4 L (42-52) % MCV 85.7 (80-100) fL MCH 30.6 (25-34) pg MCHC 35.7 (32-36) g/dL RDW Std Deviation 40.9 (36.4-46.3) fL RDW Coeff of [place] 12.9 (11.5-14.5) % Plt Count 187 (130-400) K/uL MPV 10.1 (7.4-10.4) fL Immature Gran % (Auto) 0.2 % Neut % (Auto) 60.3 % Lymph % (Auto) 30.7 % Mcculloch % (Auto) 6.5 % Eos % (Auto) 1.8 % Baso % (Auto) 0.5 % Immature Gran # (Auto) 0.02 (0.00-0.02) K/uL Neut # (Auto) 5.34 (1.4-6.5) K/uL Lymph # (Auto) 2.72 (1.2-3.4) K/uL M[place]ulloch # (Auto) 0.58 (0.11-0.59) K/uL Eos # (Auto) 0.16 (0-0.5) K/uL Baso # (Auto) 0.04 (0-0.2) K/uL PT 11.1 (9.0-12.0) Seconds INR 1.1 (0.9-1.1) APTT 24.2 (21.0-31.0) Seconds PTT Ratio 0.9 Sodium 140 (136-145) mmol/L Potassium 3.2 L (3.5-5.1) mmol/L Chloride 105 (98-107) mmol/L Carbon Dioxide 26 (21-32) mmol/L Anion Gap 9.0 (3-11) BUN 16 (7-18) mg/dl Creatinine 1.10 (0.6-1.4) mg/dl Est Cr Clr Drug Dosing 84.3 ml/min Est GFR ( Amer) 80.6 Est GFR (Non-Af Amer) 69.6 BUN/Creatinine Ratio 14.7 (10-20) Glucose 103 H (70-99) mg/dl Calcium 9.4 (8.5-10.1) mg/dl Phosphorus (2.5-4.9) mg/dl Magnesium 2.1 (1.8-2.4) mg/dl Total Bilirubin 0.5 (0.2-1) mg/dl AST 17 (15-37) U/L ALT 28 (12-78) U/L Alkaline Phosphatase 85 (45-117) U/L Troponin I < 0.015 (0-0.045) ng/ml Total Protein 7.6 (6.4-8.2) gm/dl Albumin 4.3 (3.4-5.0) gm/dl Globulin 3.3 (2.5-4.0) gm/dl Albumin/Globulin Ratio 1.3 (0.9-2) Hepatitis C Ab Screen (Neg) Blood Type Antibody Screen Crossmatch 04/01/19 04/01/19 04/01/19 Range/Units 16:23 16:23 16:27 WBC (4.8-10.8) K/uL RBC (4.7-6.1) M/uL Hgb (14.0-18.0) g/dL Hct (42-52) % MCV (80-100) fL MCH (25-34) pg MCHC (32-36) g/dL RDW Std Deviation (36.4-46.3) fL RDW Coeff of [place] (11.5-14.5) % Plt Count (130-400) K/uL MPV (7.4-10.4) fL Immature Gran % (Auto) % Neut % (Auto) % Lymph % (Auto) % [place]ulloch % (Auto) % Eos % (Auto) % Baso % (Auto) % Immature Gran # (Auto) (0.00-0.02) K/uL Neut # (Auto) (1.4-6.5) K/uL Lymph # (Auto) (1.2-3.4) K/uL M[place]ulloch # (Auto) (0.11-0.59) K/uL Eos # (Auto) (0-0.5) K/uL Baso # (Auto) (0-0.2) K/uL PT (9.0-12.0) Seconds INR (0.9-1.1) APTT (21.0-31.0) Seconds PTT Ratio Sodium (136-145) mmol/L Potassium (3.5-5.1) mmol/L Chloride (98-107) mmol/L Carbon Dioxide (21-32) mmol/L Anion Gap (3-11) BUN (7-18) mg/dl Creatinine (0.6-1.4) mg/dl Est Cr Clr Drug Dosing ml/min Est GFR ( Amer) Est GFR (Non-Af Amer) BUN/Creatinine Ratio (10-20) Glucose (70-99) mg/dl Calcium (8.5-10.1) mg/dl Phosphorus 3.2 (2.5-4.9) mg/dl Magnesium (1.8-2.4) mg/dl Total Bilirubin (0.2-1) mg/dl AST (15-37) U/L ALT (12-78) U/L Alkaline Phosphatase (45-117) U/L Troponin I (0-0.045) ng/ml Total Protein (6.4-8.2) gm/dl Albumin (3.4-5.0) gm/dl Globulin (2.5-4.0) gm/dl Albumin/Globulin Ratio (0.9-2) Hepatitis C Ab Screen Neg (Neg) Blood Type O Positive Antibody Screen NEGATIVE Crossmatch See Detail Imaging Data Radiologist's Impression: Radiology results as stated below per my review and the radiologist's interpretation: CT SCAN OF THE BRAIN WITHOUT IV CONTRAST CLINICAL HISTORY: Left-sided weakness. Slurred speech. COMPARISON STUDY: No priors. TECHNIQUE: Unenhanced axial CT scan of the brain is performed from the vertex to the skull base. A dose lowering technique was utilized adhering to the principles of ALARA. CT DOSE: 614.27 mGy.cm FINDINGS: Brain parenchyma: There are age-related involutional changes noting mild subcortical and periventricular microangiopathic change. An 8 mm low-attenuation focus is suggested in the right aspect of the leopoldo on image #11. There is no hemorrhage, mass effect, or evidence of acute territorial ischemia by CT crite ny. Haywood-white matter differentiation is preserved. No extra-axial fluid collection is seen. Ventricles, sulci, cisterns: Prominent secondary to involutional change. Intracranial vasculature: There is atherosclerotic calcification of the cavernous carotid and vertebral arteries. Calvarium: Unremarkable. Sinuses and mastoids: The visualized paranasal sinuses are clear. The mastoid air cells are well pneumatized. Orbits: The bony orbits are grossly intact. IMPRESSION: 1. There is no hemorrhage, mass effect, or evidence of acute territorial ischemia by CT criteria. 2. An 8 mm low-attenuation focus is suggested in the leopoldo and may represent an age indeterminant lacunar infarct. Electronically signed by: Carlos Toribio M.D. 04/01/2019 4:22 PM SINGLE VIEW CHEST CLINICAL HISTORY: Dyspnea. FINDINGS: 2 AP, portable, upright chest radiographs are obtained. No prior studies are available for comparison at the time of dictation. The examination is degraded by portable technique and patient rotation. The heart is enlarged. The pulmonary vasculature is noncongested. There is bibasilar atelectasis. The lungs and pleural spaces are otherwise clear. No pneumothorax is seen. The skeletal structures appear osteopenic. The bony thorax is grossly intact. IMPRESSION: Cardiomegaly with no acute cardiopulmonary abnormality. Electronically signed by: Carlos Toribio M.D. 04/01/2019 5:11 PM ECG Data Attestation: I personally reviewed and interpreted this ECG as follows: Indication: + weakness Rate (beats per minute): 63 Rhythm: + normal sinus ECG ST segments: no ST elevation ECG Findings: + Other (QTc of 444); no PACs and no PVCs Additional Comments: REPEAT EKG IN THE SAME VISIT: Normal sinus with a rate 64. No ST elevation, PACs, or PVCs. QTc of 458 Blood Pressure Blood Pressure Findings: Elevated blood pressure Blood Pressure Disposition: further management by hospitalist ÁLVARO Narrative There is no leukocytosis or concerning anemia. No coagulopathy. Potassium somewhat low at 3.2. No kidney failure. No evidence for liver enzyme elevat ion. EKG showed a sinus rhythm, no acute ischemia. Cardiac enzyme testing x1 was not consistent with acute cardiac injury. Chest x-ray did not show pneumonia or CHF. Urinalysis did not show evidence for infection. Brain CT showed an older stroke, no acute bleed or mass-effect. On exam, the patient did have findings consistent with an acute CVA. He had difficulty with his speech, there was a right facial droop with speaking, his right arm and right leg were quite weak. The patient was made a stroke alert prior to arrival. He did meet criteria for TPA. I discussed the TPA administration with his and with the patient. The risks were discussed. Tele-stroke neurology did see the patient and the case was discussed over the phone. The patient was felt a good candidate for IV TPA. Patient did receive 2 doses of IV Zofran for nausea. He also received a dose of IV Phenergan for nausea. He received IV saline. He was given a dose of IV potassium because of the lower potassium value. With the administration of the TPA, the patient regained strength and function of his right side, his speech issue resolved. The patient has been intermittently hypertensive. His pressure has been high at times and then very reasonable at times. As the hypertension was not persisting, antihypertensive meds were not ordered. I did speak to case management, I talked at length with the patient and his . Patient is going to be hospitalized. The on-call hospitalist was consulted. Patient is currently resting comfortably. Impression & Plan Acute CVA (cerebrovascular accident), Acute right-sided muscle weakness, Diap horesis, Nausea Critical Care Time Critical Care Time: Yes Total Critical Care Time: 46 I have personally spent 46 minutes of critical care time in the direct management of this patient. This includes bedside care, interpretation of diagnostic studies, and testing, discussion with consultants, patient, and family members, and other required patient management activities. This 46 minutes is in excess of all separately billable procedures. Discharge Plan Visit Data *Final* Discharge Date/Time: 04/01/19 19:07 Chief Complaint: Stroke Alert Stated Complaint: STROKE ALERT ED Provider: Carlos Kirk Discharge Problem: Acute CVA (cerebrovascular accident), Acute right-sided muscle weakness, Diaphoresis, Nausea Patient Disposition: Admitted As Inpatient Discharge Instructions Interventions: ED Discharge Assessment Last Done: 04/01/19 19:07 The scribe's documentation has been prepared under my direction and personally reviewed by me in its entirety. I confirm that the note above accurately reflects all work, treatment, procedures, and medical decision making performed by me.
[2019-04-02] MEDS ORDERED: HydrALAZINE HCL 20 MG/ML VIAL IV PRN
--- NOTE | 2019-04-02 01:55 | Critical Care Progress Note ---
Date of Service April 02, 2019 Assessment & Plan (1) Acute CVA (cerebrovascular accident): Supervising Physician Co-Signing Physician Notes I agree with the assessment and management of Shaheen Blevins of the overnight events regarding patient's care. c/w Neurological checks. Neurology input appreciated. Subjective 0138: Received Qliq message from nursing staff regarding patient's current BP reading of 110/61. Patient reportedly sleeping at this time without any obvious changes. Responded to staff that I was aware of change and would be at bedside shortly for evaluation. 0144: received Qliq message in route to patient bedside that he had began dry heaving again. 0145: Assessed patient at bedside. Without any active vomiting at this time. Complaints of Nausea alone. States that vertiginous symptoms have completely resolved at this point. During conversation with patient, he states that he is now feeling difficulty with movement of his RIGHT upper and lower extremities. He reports that it feels similar to when he initially presented to the emergency department with his CVA signs/symptoms. On exam, the patient is awake, alert, and oriented. He has persistent facial droop as previously noted which has appeared unchanged. He does have concerns for some worsening slurred speech from earlier assessment this evening. 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 Is able to lift his RIGHT upper extremity from the proximal muscle groups, but is unable to extend his elbow, wrist, or hand. With attempts at performing drift test, patient with significant drift now present in the RIGHT upper extremity from the RIGHT elbow extending distally. Slight discrepancy in sensation of the RIGHT upper extremity compared to the left. Patient's RIGHT lower extremity is with noted decrease in strength rated as a +3/5 when compared to prior +45/5 on prior exam. Unable to hold the RIGHT heel off the bed for greater than 5 seconds. Brief discussion with patient and were had regarding concerns with return of symptoms despite recent TPA administration. I did discuss the need for reinitiation of stroke alert protocol to facilitate rapid imaging modalities, treatments, and emergent tele- stroke consultation. Patient and acknowledge understanding. 0150: Orders placed for CTA head/neck as well as noncontrast CT head/brain. 0153: STROKE ALERT called overhead. Initially, I had the pleasure of speaking with Dr. Taz Morrow MD regarding patient's acute symptomatic changes. He is familiar with this patient from earlier admission. Per his recommendations, the patient was bolused with 2, 500 mg normal saline boluses as well as albumin. Patient was reviewed at great length at bedside. Patient did show some great improvement with strength and mobility of the RIGHT lower extremity even upon return of CT. With improvement of blood pressure, the patient did show increasing range of motion of the RIGHT upper extremity as well. Patient was treated with dose of rectal aspirin per neurology recommendation. Despite repeat boluses and increasing of IV fluid rate to 200 mL's per hour, patient still was with maps in the 60s. At this point, Levophed drip was initiated with the intent for titration to maintain maps at ~100. Dr. Morrow was eventually able to review all imaging studies, particularly MRI. 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 These imaging studies as well as the patient's previously noted vertiginous-like symptoms to the. The suspicion for new or finding than previously recognized. In conversation with neurology, there was concern that location of CVA in regards to medullary control of BP may have likely resulted in unprovoked, precipitous drop in blood pressure with subsequent perfusion injury and return of CVA s/s. With improvement in BP/MAPs, patient did show improvement of RUE/RLE ROM/Strength. At this juncture, Dr. Morrow did not feel as though the patient warranted any higher level of care, citing that they [place] any [place] [facility] [place] stating that they would not endovascularly intervene based on location of lesion and risk for worsening neurologic deficits. He did state that they do, on occasion, use IV Integrilin gtts in this setting, however this treatment is off-label at this point. At this point, we will continue to improve patient's BP/MAPs with pressors with goal of titrating to minimal effective dosing. Dr. Morrow does recommend placement of NGT for administration of Lipitor dosing, however he is in agreement with holding off until ~2470-2588 s/p TPA administration. This was discussed with nursing staff and appropriate orders were placed for later today. Additionally, Dr. Morrow did state that he would advocate for DAPT (ASA/Plavix) for at least one month. With this in mind, the patient's home Omeprazol dosing will be discontinued secondary to diminished antiplatelet effect. Orders were placed for Pepcid. After extensive conversation with patient and at bedside, they are comfortable with current treatment plan. All questions were answered. We will continue to monitor per unit protocol. 0145: Assessed patient at bedside. 0150: Placed orders for CTA, updated family/patient at bedside. Stroke alert called at 0153: [] Results & Data Vital Signs (Past 12 Hours) Vital Signs Temp Pulse Pulse Resp BP BP BP 04/02/19 01:01 65 23 121/48 L 04/02/19 01:00 71 24 04/02/19 00:45 76 25 H 04/02/19 00:32 74 25 H 04/02/19 00:31 36.4 C L 69 22 131/55 L 04/02/19 00:30 74 24 04/02/19 00:15 86 15 04/02/19 00:14 131/61 04/02/19 00:13 04/02/19 00:00 36.4 C L 78 73 131/55 L 04/01/19 23:47 76 132/80 04/01/19 23:30 75 136/76 04/01/19 23:17 73 18 142/88 H 04/01/19 23:00 78 22 148/66 H 04/01/19 22:46 78 22 145/57 H 04/01/19 22:45 78 12 04/01/19 22:31 80 20 142/71 H 04/01/19 22:30 84 24 04/01/19 22:16 70 21 140/51 L 04/01/19 22:15 71 19 04/01/19 22:01 76 21 160/79 H 04/01/19 22:00 77 19 04/01/19 21:46 83 13 142/58 H 04/01/19 21:45 77 15 04/01/19 21:31 85 23 158/68 H 04/01/19 21:30 80 23 04/01/19 21:20 87 21 150/89 H 04/01/19 21:15 73 23 04/01/19 21:01 61 24 172/81 H 04/01/19 21:00 60 24 04/01/19 20:50 72 31 H 155/86 H 04/01/19 20:46 162/101 H 04/01/19 20:45 04/01/19 20:36 70 16 164/81 H 04/01/19 20:31 77 17 134/75 04/01/19 20:30 85 18 04/01/19 20:17 161/84 H 04/01/19 20:15 81 04/01/19 20:01 36.4 C L 80 17 149/87 H 04/01/19 20:00 77 18 04/01/19 19:46 90 159/98 H 04/01/19 19:45 95 H 04/01/19 19:30 88 12 163/98 H 04/01/19 19:16 75 139/69 04/01/19 19:15 81 04/01/19 19:14 81 04/01/19 19:08 79 19 138/81 04/01/19 19:07 36.8 C 79 84 18 138/81 04/01/19 18:50 79 19 158/92 H 04/01/19 18:45 82 20 04/01/19 18:40 81 22 156/91 H 04/01/19 18:31 82 25 H 162/91 H 04/01/19 18:30 84 26 H 04/01/19 18:20 79 20 177/100 H 04/01/19 18:15 90 18 04/01/19 18:10 88 21 174/115 H 04/01/19 18:05 68 16 186/108 H 04/01/19 18:00 83 23 176/103 H 04/01/19 17:57 74 18 182/102 H 04/01/19 17:54 86 19 181/124 H 04/01/19 17:47 79 24 215/105 H 04/01/19 17:45 72 22 227/113 H 04/01/19 17:39 69 25 H 212/110 H 04/01/19 17:31 76 21 199/105 H 04/01/19 17:30 68 14 04/01/19 17:17 73 20 182/97 H 04/01/19 17:15 68 21 176/116 H 04/01/19 17:13 61 178/77 H 04/01/19 17:12 62 14 178/77 H 04/01/19 17:02 73 04/01/19 17:00 75 157/89 H 04/01/19 16:59 72 162/95 H 04/01/19 16:57 70 19 157/89 H 04/01/19 16:51 68 177/95 H 04/01/19 16:50 63 199/115 H 04/01/19 16:47 70 70 19 181/104 H 181/104 H 04/01/19 16:45 60 04/01/19 16:42 70 19 177/91 H 04/01/19 16:34 04/01/19 16:32 59 L 154/94 H 04/01/19 16:31 63 04/01/19 16:22 59 L 159/97 H 04/01/19 16:12 36.4 C L 59 L 22 159/97 H Pulse Ox 04/02/19 01:01 95 04/02/19 01:00 95 04/02/19 00:45 96 04/02/19 00:32 95 04/02/19 00:31 95 04/02/19 00:30 95 04/02/19 00:15 93 04/02/19 00:14 91 04/02/19 00:13 93 04/02/19 00:00 95 04/01/19 23:47 96 04/01/19 23:30 94 04/01/19 23:17 91 04/01/19 23:00 98 04/01/19 22:46 98 04/01/19 22:45 98 04/01/19 22:31 98 04/01/19 22:30 98 04/01/19 22:16 96 04/01/19 22:15 96 04/01/19 22:01 96 04/01/19 22:00 97 04/01/19 21:46 97 04/01/19 21:45 94 04/01/19 21:31 93 04/01/19 21:30 93 04/01/19 21:20 96 04/01/19 21:15 95 04/01/19 21:01 96 04/01/19 21:00 96 04/01/19 20:50 96 04/01/19 20:46 97 04/01/19 20:45 100 04/01/19 20:36 97 04/01/19 20:31 98 04/01/19 20:30 97 04/01/19 20:17 98 04/01/19 20:15 97 04/01/19 20:01 94 04/01/19 20:00 93 04/01/19 19:46 97 04/01/19 19:45 97 04/01/19 19:30 97 04/01/19 19:16 98 04/01/19 19:15 99 04/01/19 19:14 04/01/19 19:08 99 04/01/19 19:07 98 04/01/19 18:50 99 04/01/19 18:45 99 04/01/19 18:40 100 04/01/19 18:31 98 04/01/19 18:30 99 04/01/19 18:20 100 04/01/19 18:15 100 04/01/19 18:10 99 04/01/19 18:05 100 04/01/19 18:00 99 04/01/19 17:57 100 04/01/19 17:54 97 04/01/19 17:47 100 04/01/19 17:45 100 04/01/19 17:39 100 04/01/19 17:31 92 04/01/19 17:30 99 04/01/19 17:17 100 04/01/19 17:15 04/01/19 17:13 99 04/01/19 17:12 99 04/01/19 17:02 100 04/01/19 17:00 100 04/01/19 16:59 100 04/01/19 16:57 99 04/01/19 16:51 100 04/01/19 16:50 99 04/01/19 16:47 98 04/01/19 16:45 99 04/01/19 16:42 98 04/01/19 16:34 91 04/01/19 16:32 95 04/01/19 16:31 98 04/01/19 16:22 90 04/01/19 16:12 91 Coding Level of Care Code Critical Care 1st 30-74 mins Diagnoses Acute CVA (cerebrovascular accident) I63.9 Time Spent (min) 85
[2019-04-02] MEDS ORDERED: SODIUM CHLORIDE 0.9% 1000ML 500 ML IV ONE ×3 (02:11→12:11)
[2019-04-02] MEDS ORDERED: OPTIRAY 320 125ml IV PRN (02:31)
[2019-04-02] MEDS ORDERED: ALBUMIN 5% 250 ML IV STA (02:51)
[2019-04-02] MEDS ORDERED: ALBUMIN 5% 250 ML IV ONE (03:00)
[2019-04-02] MEDS ORDERED: ASPIRIN 300 MG SUPP PR ONE (03:12)
[2019-04-02] MEDS: NOREPINEPHRINE BIT INJ 8 MG in DEXTROSE 5% 500 ML IV PRN ×2 (03:26→10:48)
[2019-04-02] MEDS: SODIUM CHLORIDE 0.9% 500 ML IV SCH (03:36)
[2019-04-02] MEDS: ONDANSETRON INJ 2 MG/ML 2 ML VIAL IV PRN ×2 (04:27→08:52)
[2019-04-02] MEDS: SODIUM CHLORIDE 0.9% 1000ML 1,000 ML IV SCH ×5 (05:55→22:37)
--- NOTE | 2019-04-02 06:40 | CT Scan Report ---
CT head/brain wo con CLINICAL HISTORY: 68 years-old Male with new RIGHT sided deficits s/p TPA. Acute strokelike symptoms TECHNIQUE: Multiple axial CT images of the head were obtained without contrast. A dose lowering tech nique was utilized adhering to the principles of ALARA. COMPARISON: CTA of the head of same day, CT head 04/01/2019, brain MRI 04/01/2019. FINDINGS: No acute intracranial hemorrhage, midline shift, intracranial mass, hydrocephalus, territorial ischem ia or abnormal extra-axial collection. Subcentimeter remote lacunar infarction of the right leopoldo. Mil d degree of patchy white matter hypodensities suggest chronic microvascular ischemic disease. Cerebra l vascular calcifications are noted. Cerebral vascular calcifications are noted. The calvarium is intact. The paranasal sinuses, mastoid air cells, and middle ear cavities are clear . IMPRESSION: No acute intracranial abnormality. The above report was generated using voice recognition software. It may contain grammatical, syntax o r spelling errors. Electronically signed by: Alexandre You M.D. 04/02/2019 6:39 AM
--- NOTE | 2019-04-02 07:02 | CT Scan Report ---
CT angio neck with con CLINICAL HISTORY: Right-sided weakness. Stroke. COMPARISON STUDY: No previous studies for comparison. TECHNIQUE: CT angiography was performed from the aortic arch to the skull base. MIP imaging was perfo rmed. The patient was scanned in a dynamic helical fashion during intravenous administration of 118 c c of Optiray 320. A dose lowering technique was utilized adhering to the principles of ALARA. CT DOSE: Technique: CT angiogram of the carotid and vertebral arteries was obtained using intravenous contrast and 3-D reconstruction. NASCET criteria was utilized. Findings: The right carotid revealed no evidence of aneurysm and no evidence of dissection. There is no evidenc e of hemodynamic significant stenosis. There are mild atheromatous changes with calcified plaque. The left carotid revealed no evidence of hemodynamic significant stenosis. There is no evidence of an eurysm. There is no evidence of dissection. There are mild atheromatous changes present with calcifie d plaque. The right vertebral artery is dominant. There are mild atheromatous changes present without evidence of hemodynamically significant stenosis. The left vertebral artery arises directly from the aortic ar ch. There is luminal irregularity of the distal left vertebral artery with distal occlusion. This eit her represents a dissection or atherosclerotic occlusion. IMPRESSION: 1. Atheromatous changes but no evidence of hemodynamically significant internal carotid artery stenos is 2. Dominant right vertebral artery 3. Luminal irregularity of the distal left vertebral artery with distal occlusion. This either repres ents a dissection or atherosclerotic occlusion. Electronically signed by: Morteza Nichols M.D. 04/02/2019 7:01 AM
--- NOTE | 2019-04-02 07:09 | CT Scan Report ---
CT angio head w con CLINICAL HISTORY: 68 years-old Male presenting with RIGHT sided weakness s/p cva/tpa. TECHNIQUE: Multidetector CT angiography of the head was performed after the administration of intrave nous contrast. 3-D volumetric and/or maximum intensity projection (MIP) images were subsequently casimiro nstructed for review. IV contrast: 118 mL of Optiray 320. One or more dose lowering techniques were u sed consistent with the principles of ALARA (as low as reasonably achievable), including automatic ex posure control, mA or kV adjustment to individual patient size, and/or use of iterative reconstructio n. COMPARISON: MRI brain and CT head performed same day. CT DOSE (mGy.cm): The estimated cumulative dose is 1294.06 mGy.cm. FINDINGS: Applied Psychology Chair topogram: Unremarkable. Anterior circulation: Atherosclerosis of the cavernous segments of the internal carotid arteries. Int racranial portions of the internal carotid arteries patent to the level of the termini. Hypoplastic o r aplastic A1 segment of the left anterior cerebral artery. Remainder of the anterior cerebral arteri es patent bilaterally. Middle cerebral arteries patent. Anterior communicating artery patent. Posterior circulation: Right dominant vertebral artery. The lumen of the left vertebral artery is irr egular at the level of the C1-skull base near the origin of the left posterior inferior cerebellar ar ana cristina (PICA). The intradural portion of the left vertebral artery is occluded beyond the origin of the left most ureter inferior cerebellar artery. The left vertebral artery is reconstituted likely from retrograde or collateral flow near the basilar confluence. PICAs patent. Basilar artery patent. Anter ior inferior cerebellar arteries poorly visualized. Superior cerebellar arteries patent. Severe steno sis is noted in the P1 segment of the right posterior cerebral artery (series 5 image 113). More dist al stenoses may also be present in this distribution. Posterior communicating arteries hypoplastic or aplastic bilaterally. Dural venous sinuses: Patent. Other: Allowing for the phase of contrast, brain parenchyma within normal limits. Calvarium intact. IMPRESSION: 1. 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 Significant vessel irregularity of the left vertebral artery in the region of the left PICA origin. Findings could represent a short segment dissection or thrombotic/atherosclerotic occlu shan of a portion of the left vertebral artery. 2. No evidence of aneurysm. Electronically signed by: Alfonzo Charles M.D. 04/02/2019 7:08 AM
--- NOTE | 2019-04-02 07:16 | Magnetic Resonance Report ---
MR brain wo con CLINICAL HISTORY: 68 years-old Male presenting with CVA s/p TPA. TECHNIQUE: Multisequence, multiplanar MR imaging of the brain was performed without the use of intrav enous contrast. IV contrast: None. COMPARISON: Noncontrast CT head from 04/01/2019. FINDINGS: Localizer images: Unremarkable. Bone marrow signal intensity within the calvarium within normal limits. Normal midline sagittal structures. Ventricles and sulci normal in size. No mass effect or midline sh ift. No restricted diffusion or hemorrhage. Periventricular and subcortical white matter T2/FLAIR hyp erintensity, nonspecific but likely indicative of chronic small vessel ischemic change. Chronic small vessel ischemic change may also account for the T2/FLAIR hyperintense signal within the left medulla (series 5 image 5). Old lacunar infarct in the right paramedian leopoldo. No extra-axial fluid collection. T2 skull base flow voids preserved. IMPRESSION: 1. Loss of the flow void within the left vertebral artery showing suggests occlusion. The acuity of this finding is uncertain. This finding was corroborated on subsequent CTA head. 2. Chronic small vessel ischemic change, including suspected involvement of the left medulla. Old la cunar infarct in the right paramedian leopoldo. No acute intracranial abnormality. These findings were discussed with physician program assistant Shaheen by Dr. Reyes on 04/02/2019 2:20 AM. Electronically signed by: Alfonzo Charles M.D. 04/02/2019 7:14 AM
--- NOTE | 2019-04-02 07:18 | Ultrasound Report ---
ULTRASOUND OF THE CAROTID ARTERIES CLINICAL HISTORY: CVA COMPARISON STUDY: None. TECHNIQUE: Real-time, grayscale, and color Doppler sonography of the carotid arteries was performed. Imaging reviewed in the transverse and longitudinal planes. NASCET criteria was utilized for stenosis calcification. FINDINGS: There is minimal atherosclerotic plaque present . The peak systolic velocity within the right internal carotid artery is 78 cm/sec. The systolic velocity ratio of right internal to common carotid artery is 1.2. The peak systolic velocity within the left internal carotid artery is 74 cm/sec. The systolic velocity ratio left internal to common carotid artery is 0.9. Antegrade flow is seen in the vertebral arteries. The external carotid arteries are patent. IMPRESSION: No evidence of hemodynamically significant carotid stenosis. Electronically signed by: Morteza Nichols M.D. 04/02/2019 7:17 AM
--- NOTE | 2019-04-02 08:26 | Critical Care Progress Note ---
Date of Service April 02, 2019 Assessment & Plan (1) Acute CVA (cerebrovascular accident): Mr. Dwight Patino is a 68 y/o male with past medical history of HTN, HLD with new onset CVA with right sided hemiparesis who received TPA in ED. Neuro New CVA with right sided hemiparesis that appear to be improving from deficit at onset but still present. TPA was given in ED with last given approximately 6pm. MRI of brain w/o performed 04/01/19 showed left veretebral occlusion and crhonic small vessel ischemic change, including suspected involvement of the left medulla. Old lacunar infarct in the right paramedian leopoldo. No acute intracranial abnormality. 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 Significant vessel irregularity of the left vertebral artery in the region of the left PICA origin. Findings could represent a short segment dissection or thrombotic/atherosclerotic occlusion of a portion of the left vertebral artery. There was no evidence of aneurysm. Neck CTA: Atheromatous changes but no evidence of hemodynamically significant internal carotid artery stenosis; dominate right vertebral artery; Luminal irregularity of the distal left vertebral artery with distal occlusion. This either represents a dissection or atherosclerotic occlusion. Carotid Doppler U/S: No evidence of hemodynamically significant carotid stenosis Enteric tube will need to be placed, gently, for statin medication administration Repeat Head CT this morning showed in acute intracranial abnormality. There was concern that location of CVA in regards to medullary control of BP may have likely resulted in unprovoked, precipitous drop in blood pressure with subsequent perfusion injury and return of CVA symptoms/signs. This was improved overnight with 2.5L NS as well as albumin. Overnight team discussed cause with [facility] who did not recommend transfer as they would not intervene endovascularly. He was given Integrilin IV. Levophed drip was initiated with the intent for titration to maintain maps at ~100. He was given rectal ASA and will give Baby ASA starting 11/5 AM with addition of Brilinta for dual antiplatelet therapy. Prefer to keep systolic pressures not greater than 170, but with goal to maintain MAPs ~100 for adequate neuro perfusion. Complains of nausea most likely from posterior circulation deficits to brainstem and will treat with Ativan 0.5mg IV q6h PRN. Cardiac/Vascular Past Medical Hx of HTN and HLD Continue with hemodynamically monitoring Placed central venous cath and Arterial line this AM at bedside CXR showed cardiomegaly with no acute cardiopulmonary abnormality Echocardiogram performed this morning Pressors: Levophed to maintain MAPs >100 Pulm Continue with supplemental oxygen to maintain adequate oxygenation GI Currently NPO Speech eval ordered for evaluation of swallowing Complaints of nausea most likely from neuro CVA and will use Ativan 0.5mg IV q6H PRN inplace of traditional anti-emetics which aren't efficacious. Renal/Lytes No signs of kidney dysfunction; hypokalemic yesterday which was replaced No current Ch cath in place Endo No history of thyroid disease or diabetes Heme WBC, Hgb, Platelets WNL today ID No current concerns for infection Lines Right Central Venous Cath IJ; left arterial [place] DVT ppx: SCDs Resuscitation status: Full Code Supervising Physician Co-Signing Physician Notes Dr. Romero was resident physician during care of patient. I separately evaluated patient for jennings portions of the history and the exam. I was present during the critical portion of medical decision making, and I discussed the case with the resident. I generally agree with the findings and plan. Initial NIH was 8 his NIH currently is 1, I have reviewed the notes from overnight, patient is requiring pressor support: This is a presumptive cerebellar stroke and the platelet needs anti-platelet therapy. He has failed his bedside swallow, we are less than 24 hours out from TPA administration but greater than 12. There should be minimal activity of the TPA and the risk benefit calculation involves placement of an NG tube and possible epistaxis versus initiating Integrilin, I feel the placement of an NG tube is less risk than the Integrilin and we will start aspirin and Plavix per her she stroke neurology recommendation. Continue to maintain his maps greater than 100, patient requires 0.2 of Levophed at this time, we will consent the patient and perform a central venous access as he is requiring vasoactive's greater than 4 hours and a peripheral IV and we will entertain the possibility of a arterial line at the same time. Patient was consented for central line arterial line made aware of risks and benefits of NG tube, willing to undergo NG tube placement as well as the aforementioned lines. Patient was also discussed on multidisciplinary rounds. I have personally spent 60 minutes of critical care time in the direct management of this patient. This is a life/limb threatening event. This includes time spent evaluating patient, direct bedside care, chart review, placing orders, interpretation of diagnostic studies, discussion with consultants, patient, and/or family members regarding treatment decisions, as well as other required patient management activities. This time is exclusive of all separately billable procedures, and teaching time and separate from and in addition to any other critical care service time. Clinical update 1700: Discussed with speech therapy patient able to swallow, will proceed with diet. And discontinue NG tube. Subjective Mr. Patino notes no nausea this AM. He did note his previous nausea wasn't improved with anti-emetics except for Ativan. He notes no worsening right sided weakness/numbness or new acute symptoms. He denies chest pain, headache, shortness of breath. His notes his speech is close to his baseline. 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 Review of Systems Review of Systems: All systems reviewed & are unremarkable except as noted in HPI & below Constitutional: no fever and no chills Ear, Nose, Mouth, Throat: no hearing loss and no epistaxis Respiratory: no cough and no dyspnea Cardiovascular: no chest pain and no chest pain at rest Gastrointestinal: + nausea (None currently this AM) and + vomiting (None currently this AM) Physical Exam Constitutional: WD/WN, vitals as above cooperative and comfortable Eyes: + anicteric sclerae, PERRL and EOM intact bilaterally ENMT: Nose: no external nose abnormality and no epistaxis Neck: normal visual inspection and trachea midline Respiratory: normal respiratory effort, lungs clear to auscultation Cardiovascular: Rate/Rhythm: regular rate and regular rhythm Musculoskeletal: Head/Neck/Chest: normocephalic and head atraumatic Skin: no rashes, warm and dry Neurologic: CN's II-XI intact bilaterally, moves all extremities and awake; not confused right sided 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 4/5, RUE flexion/extension, RLE dorsi/plantarflexion as compared to left; no noticable slurred speech; no difficulty with word finding; able to repeat; mild decreased sensation to touch to right face, right RUE, right LE, without sensory deficit to trunk Psychiatric: A+Ox3, euthymic affect Results & Data Vital Signs (Past 12 Hours) Vital Signs Temp Pulse Pulse Resp BP BP Pulse Ox 04/02/19 06:01 79 23 130/59 L 95 04/02/19 06:00 80 22 140/60 97 04/02/19 05:45 78 21 94 04/02/19 05:31 78 17 118/69 98 04/02/19 05:30 80 23 96 04/02/19 05:15 78 22 97 04/02/19 05:01 72 23 138/62 96 04/02/19 05:00 78 23 97 04/02/19 04:45 81 24 97 04/02/19 04:31 83 25 H 162/71 H 97 04/02/19 04:30 83 19 97 04/02/19 04:15 77 22 100 04/02/19 04:01 73 17 141/69 H 100 04/02/19 04:00 36.4 C L 72 21 100 04/02/19 03:58 75 22 157/64 H 100 04/02/19 03:57 75 21 140/71 100 04/02/19 03:55 71 20 152/66 H 100 04/02/19 03:53 72 20 151/66 H 99 04/02/19 03:50 73 21 150/73 H 96 04/02/19 03:49 70 21 133/74 97 04/02/19 03:47 36.4 C L 78 21 144/60 H 98 04/02/19 03:45 61 21 152/54 H 99 04/02/19 03:43 71 26 H 135/54 L 97 04/02/19 03:41 72 23 129/52 L 97 04/02/19 03:36 77 22 129/60 97 04/02/19 03:32 73 28 H 126/52 L 98 04/02/19 03:31 70 31 H 115/51 L 98 04/02/19 03:30 89 10 L 95 04/02/19 03:28 74 24 142/68 H 97 04/02/19 03:26 77 22 142/75 H 95 04/02/19 03:20 77 24 142/69 H 96 04/02/19 03:15 76 23 130/71 96 04/02/19 03:10 80 23 128/66 96 04/02/19 03:05 81 12 115/76 96 04/02/19 03:03 75 24 123/76 97 04/02/19 03:01 84 24 128/71 95 04/02/19 03:00 82 20 140/70 96 04/02/19 02:56 76 22 140/70 96 04/02/19 02:51 77 23 129/73 96 04/02/19 02:49 80 25 H 111/65 93 04/02/19 02:45 77 23 125/66 94 04/02/19 02:40 79 24 126/68 93 04/02/19 02:39 80 24 132/68 93 04/02/19 02:35 74 27 H 127/77 94 04/02/19 02:30 76 25 H 130/67 91 04/02/19 02:28 81 20 148/64 H 93 04/02/19 02:18 76 24 124/69 04/02/19 02:15 80 20 04/02/19 02:13 86 12 04/02/19 02:00 78 21 124/69 98 04/02/19 01:45 98 H 14 94 04/02/19 01:43 119/48 L 93 04/02/19 01:30 72 22 110/61 94 04/02/19 01:15 70 22 96 04/02/19 01:01 65 23 121/48 L 95 04/02/19 01:00 71 24 95 04/02/19 00:45 76 25 H 96 04/02/19 00:32 74 25 H 95 04/02/19 00:31 36.4 C L 69 22 131/55 L 95 04/02/19 00:30 74 24 95 04/02/19 00:15 86 15 93 04/02/19 00:14 131/61 91 04/02/19 00:13 93 04/02/19 00:00 36.4 C L 78 73 131/55 L 95 04/01/19 23:47 76 132/80 96 04/01/19 23:30 75 136/76 94 04/01/19 23:17 73 18 142/88 H 91 04/01/19 23:00 78 22 148/66 H 98 04/01/19 22:46 78 22 145/57 H 98 04/01/19 22:45 78 12 98 04/01/19 22:31 80 20 142/71 H 98 04/01/19 22:30 84 24 98 04/01/19 22:16 70 21 140/51 L 96 04/01/19 22:15 71 19 96 04/01/19 22:01 76 21 160/79 H 96 04/01/19 22:00 77 19 97 04/01/19 21:46 83 13 142/58 H 97 04/01/19 21:45 77 15 94 04/01/19 21:31 85 23 158/68 H 93 04/01/19 21:30 80 23 93 04/01/19 21:20 87 21 150/89 H 96 04/01/19 21:15 73 23 95 04/01/19 21:01 61 24 172/81 H 96 04/01/19 21:00 60 24 96 04/01/19 20:50 72 31 H 155/86 H 96 04/01/19 20:46 162/101 H 97 04/01/19 20:45 100 04/01/19 20:36 70 16 164/81 H 97 04/01/19 20:31 77 17 134/75 98 04/01/19 20:30 85 18 97 PG Care Time/CCT Total # of Minutes Spent Total Time Spent with Patient: Total time spent is greater than 50% in coordination of care (as documented) at patient's floor/unit and/or counseling patient: Resident Activity Tracking Resident Involvement: Resident Care Provided Care Provided: Adult Hospital Medicine (ICU)
[2019-04-02] MEDS ORDERED: SODIUM CHLORIDE 0.9% 250 ML IV PRN (08:46)
[2019-04-02] MEDS ORDERED: ATORVASTATIN 20 MG TAB PO SCH (09:00)
[2019-04-02] MEDS ORDERED: LORazepam 0.5 MG/1 ML VIAL IV PRN (09:48)
--- NOTE | 2019-04-02 09:55 | XRay Report ---
KUB HISTORY: Status post placement of an enteric tube ng tube verification COMPARISON: CT abdomen and pelvis 02/27/2018 FINDINGS: Status post placement of an enteric tube, distal tip projected over the abdominal right upp er quadrant within the expected location of the distal gastric lumen. Bowel gas pattern is nonobstruc tive. The lower abdomen is excluded from the [id number]. There is no organomegaly. No renal calcu li. No ureteral calculi. No pneumoperitoneum or pneumatosis. Mild lumbar levoscoliosis. No fracture. IMPRESSION: Distal tip of enteric tube projects over the abdominal right upper quadrant in the expected location of the distal gastric lumen. Electronically signed by: Alexandre You M.D. 04/02/2019 9:53 AM
[2019-04-02] MEDS: ATORVASTATIN 20 MG TAB PO SCH (10:50)
[2019-04-02] MEDS: FAMOTIDINE 20 MG in SYRINGE 3 ML IV SCH ×2 (10:50→20:57)
[2019-04-02] MEDS: TICAGRELOR 90 MG TAB PO SCH ×2 (11:08→20:46)
--- NOTE | 2019-04-02 12:57 | Procedure Note ---
Procedure Note Date of Service April 02, 2019 Procedure date: Noted above Procedure: Radial artery cannulation Pre-procedure Diagnosis: Need for invasive monitoring, vasoactive medication use in the setting of recent CVA, patient requiring vasoactive medications to maintain mean arterial pressure Post-procedure Diagnosis: same as above Prior to Procedure: Informed Consent: The risks, benefits, indications, potential complications, and alternatives were explained to the patient and informed consent obtained. Attending Staff: Shahla House DO Skin Prep: Chlorhexidine Anesthesia: 3 mL 1% lidocaine without epinephrine The identity of the patient was confirmed and a bedside time out was performed. Description of Procedure: After sterile prep and sterile drape utilizing standard sterile technique the superficial skin of the left radial artery was anesthetized. The target artery was identified via dynamic ultrasound guidance and entered with a 20-gauge arrow Angiocath. Pulsatile bright red blood return was noted. Via modified Seldinger technique the self-contained guidewire was advanced and the Angiocath advanced over the guidewire. The guidewire was removed and brisk arterial blood return was noted. The pressure monitor was connected, and the arterial line was secured via commercial securement device. A sterile dressing was then applied. Complications: Patient's invasive arterial line was significantly discordant from the noninvasive blood pressure cuff, return to flow was checked and correlated with noninvasive blood pressure cuff. We are holding removal of invasive arterial line at this time till 24 hours post TPA administration. Estimated blood loss: Trace Patient tolerated the procedure well. Coding CPT Codes Tubes, Drains, and Vasc Access - Tubes, Drains, and Vasc Access: Insertion Catheter, Artery ([id number])
--- NOTE | 2019-04-02 13:03 | XRay Report ---
SINGLE VIEW CHEST CLINICAL HISTORY: Central venous catheter placement. FINDINGS: An AP, portable, upright chest radiograph is compared to study dated 04/01/2019. The examina tion is degraded by portable technique and patient rotation. An enteric tube has been placed. The tip projects below the diaphragm and is not visualized. A right internal jugular central venous catheter has been placed. The tip of the catheter projects over the SVC. The heart is enlarged. The pulmonary vasculature is noncongested. Plate like atelectasis is present at both lung bases. No airspace conso lidation or large pleural effusion is identified. No pneumothorax is seen. The skeletal structures ap pear osteopenic. The bony thorax is grossly intact. IMPRESSION: 1. A right internal jugular central venous catheter and an enteric tube have been placed. No pneumoth orax is seen post procedure. 2. Cardiomegaly with no acute cardiopulmonary abnormality. Electronically signed by: Carlos Toribio M.D. 04/02/2019 1:02 PM
[2019-04-02] MEDS ORDERED: Nursing to Pharmacy Communication ONE (14:10)
[2019-04-02] MEDS ORDERED: NOREPINEPHRINE BIT IV PRN ×2 (14:16→17:32)
[2019-04-02] MEDS ORDERED: SODIUM CHLORIDE 0.9% IV PRN ×2 (14:16→17:32)
--- NOTE | 2019-04-02 14:27 | Neurology Consultation ---
Date of Consultation April 02, 2019 Assessment & Plan (1) Acute CVA (cerebrovascular accident): 1. continue to keep MAP 100. reduce when appropriate- currently on Levophed 2. then optimize HTN, HLD, DM LDL <70 3. currently on Brilinta 90 mg BID - care mgt to see if this is covered by insu jemima prior to discharge- would recommend plavix 75 mg daily 4. continue aspirin 81 mg daily 5. PT/OT speech for discharge needs 6. TTE- no ASD 7. ICU for medical management Supervising Physician Co-Signing Physician Notes Patient was seen and examined in radiology department this afternoon. I agree with Christiana Sethi PA-C as noted below. A 68 year old male with history of HTN, HLD, and former smoker on ASA 81 mg daily presented with acute right sided weakness, numbness, and slurred speech. Blood pressures elevated on admission. Symptomatology concerning for lacunar syndrome. TPA was given. CT head negative for hemorrhage. CTA showed left vertebral oclussion (likely chronic) and old right lacunar infarct. MRI brain reviewed and shows CMIC with non specific T2 changes in left medulla and leopoldo suggestive of possible microvascular ischemic changes. He has NG tube in place now. Reports feeling much better. Denies right sided weakness. On examine speech is clear. Comprehension is intact. He can repeat. Pupils symmetric. No ptosis. Tongue midline. Strength is 5/5 except for right interosseous 4/5. Differential diagnosis certainly includes stuttering TIA Vs DWI negative stroke Vs aborted stroke s/p TPA. - Repeat CT head non contrast post TPA is Negative for hemorrhage - Recommend starting dual antiplatelet therapy ASA 81 mg daily and Plavix 75 mg daily for 21-days then Plavix 75 mg daily - Recommend increasing Lipitor to 80 mg daily - Recommend weaning off vaso pressures - Please check HA1c, TSH, and lipid panel - PT/OT/SS - Neuro checks per ICU protocol History of Present Illness Reason for Consultation: Right sided weakness Requesting Physician: Kymberly Davila MD Attending Physician: Kymberly Davila MD History of Present Illness Dwight is a 68 year old male with PMH- HTN, HLD, GERD, AAA 3.6 cm monitored annually, prediabetes, history of nephrolithiasis who presented to [facility] ED secondary to strokelike symptoms 1.5 hours prior to arrival on 04/01/2019 He was sitting at his computer when his tongue felt, "heavy." He further began experiencing right upper and lower extremity weakness, numbness, " my whole right side went numb." and had slurred speech per . EMS was called and stroke alert was initiated. He had a CT scan of brain which revealed 8 mm low attention focus in the right leopoldo, but no evidence of hemorrhage. He had tPa administered at 1400 on 04/01. He had spontaneous resolution of right lower extremity and upper extremity numbness/weakness and improvement in speech. He was also having significant nausea and given phenergan and zofran. He also had an episode of bradycardia with heart rates in high 30s, low 40s which was felt to be secondary to vagal stimulation due to nausea and diaphoresis. He was sent to the [facility] for further monitoring. Over night he had an episode of hypotension and return of symptoms. He being given levofed for MAP of 100 goal. He was also given ativan for nausea and agitation and he is sleepy but fully arousable. 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 Allergies Allergy/AdvReac Type Severity Reaction Status Date / Time No Known Allergies Allergy Verified 04/01/19 16:30 Home Medications Home Medications Medication Instructions Recorded Confirmed Type aspirin 81 mg PO QAM 07/29/18 04/01/19 History amlodipine 5 mg PO DAILY 04/01/19 04/01/19 History atorvastatin 20 mg PO DAILY 04/01/19 04/01/19 History hydrochlorothiazide 12.5 mg PO DAILY 04/01/19 04/01/19 History lisinopril 30 mg PO BID 04/01/19 04/01/19 History omeprazole 20 mg PO DAILY 04/01/19 04/01/19 History Patient History Medical History HLD (hyperlipidemia) GERD (gastroesophageal reflux disease) AAA (abdominal aortic aneurysm) 3.6 cm monitored annually with US - last 06/2018 History of nephrolithiasis Pre-diabetes Ischemic stroke Kidney stones HTN (hypertension) Surgical History History of arthroscopic surgery of shoulder History of lumbar laminectomy No pertinent past surgical history Family History Father Throat cancer Mother Dementia Social History Preferred Language: [place] Communication Ability: Effective 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 Beliefs That Will Affect Care: None marital status: Current Living Situation: Spouse Feels Safe at Home: Yes Smoking Status: Never smoker packs per day: 1 ; Hx Alcohol Use: No Hx Substance Use: No Physical Exam Physical Exam: Physical Exam: Constitutional: appearance nourished, healthy and drowsy Ears, Nose, Mouth and Throat: mucous membranes moist, no injection and skin normal, eyes normal Cardiovascular: normal S-1 and S-2 and regular rate and rhythm, systolic murmer Respiratory: course breath sounds Musculoskeletal: no peripheral edema and good distal pulses Skin: no stigmata of neurocutaneous disease noted and normal and intact Eyes: extraocular muscles intact (EOMI) and pupils equal, round and reactive to light (PERRL) NEUROLOGIC EXAMINATION: Mental status: Alert and interactive Oriented to person Speech fluent with no evidence of aphasia Cranial Nerves smile eye brow raise symmetric Reflexes: Deep tendon reflexes were symmetrical and graded 2/5. Sensory: light and cool touch intact Coordination: finger to nose no bi pass Gait/Stance: Posture lying in bed Motor: Negative for pronator drift of out stretched arms with eyes closed. 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 right 4+/5 left 5/5, hip flex 5/5 Results & Data Vital Signs (Past 12 Hours) Vital Signs Temp Pulse Pulse Resp BP Pulse Ox 04/02/19 14:00 94 H 19 155/72 H 93 04/02/19 13:31 75 23 147/71 H 94 04/02/19 13:16 72 22 144/74 H 93 04/02/19 13:01 81 22 148/76 H 92 04/02/19 12:46 76 21 155/76 H 94 04/02/19 12:45 75 25 H 96 04/02/19 12:35 93 H 20 163/73 H 96 04/02/19 12:30 88 23 95 04/02/19 12:16 73 23 154/65 H 93 04/02/19 12:00 36.9 C 72 21 139/63 95 04/02/19 11:47 70 04/02/19 11:46 78 22 146/67 H 90 04/02/19 11:31 89 23 150/64 H 93 04/02/19 11:16 79 20 154/64 H 92 04/02/19 11:01 96 H 19 144/70 H 93 04/02/19 11:00 92 H 23 90 04/02/19 10:47 70 04/02/19 10:46 102 H 25 H 164/66 H 94 04/02/19 10:31 88 24 144/67 H 92 04/02/19 10:16 95 H 23 144/63 H 93 04/02/19 10:01 87 22 166/70 H 91 04/02/19 10:00 91 H 18 94 04/02/19 09:47 70 04/02/19 09:46 77 22 159/58 H 93 04/02/19 09:31 91 H 19 145/66 H 92 04/02/19 09:16 96 H 21 144/63 H 93 04/02/19 09:01 95 H 22 171/78 H 95 04/02/19 09:00 105 H 18 93 04/02/19 08:00 36.7 C 74 23 04/02/19 07:00 80 23 94 04/02/19 06:01 79 23 130/59 L 95 04/02/19 06:00 80 22 140/60 97 04/02/19 05:45 78 21 94 04/02/19 05:31 78 17 118/69 98 04/02/19 05:30 80 23 96 04/02/19 05:15 78 22 97 04/02/19 05:01 72 23 138/62 96 04/02/19 05:00 78 23 97 04/02/19 04:45 81 24 97 04/02/19 04:31 83 25 H 162/71 H 97 04/02/19 04:30 83 19 97 04/02/19 04:15 77 22 100 04/02/19 04:01 73 17 141/69 H 100 04/02/19 04:00 36.4 C L 72 21 100 04/02/19 03:58 75 22 157/64 H 100 04/02/19 03:57 75 21 140/71 100 04/02/19 03:55 71 20 152/66 H 100 04/02/19 03:53 72 20 151/66 H 99 04/02/19 03:50 73 21 150/73 H 96 04/02/19 03:49 70 21 133/74 97 11/04/19 03:47 36.4 C L 78 21 144/60 H 98 04/02/19 03:45 61 21 152/54 H 99 04/02/19 03:43 71 26 H 135/54 L 97 04/02/19 03:41 72 23 129/52 L 97 04/02/19 03:36 77 22 129/60 97 04/02/19 03:32 73 28 H 126/52 L 98 04/02/19 03:31 70 31 H 115/51 L 98 04/02/19 03:30 89 10 L 95 04/02/19 03:28 74 24 142/68 H 97 04/02/19 03:26 77 22 142/75 H 95 04/02/19 03:20 77 24 142/69 H 96 04/02/19 03:15 76 23 130/71 96 04/02/19 03:10 80 23 128/66 96 04/02/19 03:05 81 12 115/76 96 04/02/19 03:03 75 24 123/76 97 04/02/19 03:01 84 24 128/71 95 04/02/19 03:00 82 20 140/70 96 04/02/19 02:56 76 22 140/70 96 04/02/19 02:51 77 23 129/73 96 04/02/19 02:49 80 25 H 111/65 93 04/02/19 02:45 77 23 125/66 94 04/02/19 02:40 79 24 126/68 93 04/02/19 02:39 80 24 132/68 93 04/02/19 02:35 74 27 H 127/77 94 04/02/19 02:30 76 25 H 130/67 91 04/02/19 02:28 81 20 148/64 H 93 Diagnostic Findings MRI brain - Loss of the flow void within the left vertebral artery showing suggests occlusion. The acuity of this finding is uncertain. This finding was corroborated on subsequent CTA head. Chronic small vessel ischemic change, including suspected involvement of the left medulla. Old lacunar infarct in the right paramedian leopoldo. No acute intracranial abnormality. carotid doppler- No evidence of hemodynamically significant carotid stenosis. CTA head-Occlusion of the intradural portion of the left vertebral artery with reconstitution at the basilar confluence. Significant vessel irregularity of the left vertebral artery in the region of the left PICA origin. Findings could represent a short segment dissection or thrombotic/atherosclerotic occlusion of a portion of the left vertebral artery. No evidence of aneurysm. CTA neck-. Atheromatous changes but no evidence of hemodynamically significant internal carotid artery stenosis Dominant right vertebral artery Luminal irregularity of the distal left vertebral artery with distal occlusion. This either represents a dissection or atherosclerotic occlusion CT head-No acute intracranial abnormality. TTE - EF 65-70% no ASD
--- NOTE | 2019-04-02 15:12 | Procedure Note ---
Procedure Note Date of Service April 02, 2019 Procedure date: Noted above Procedure: Internal Jugular Central Line Procedure Note Pre-procedure Diagnosis: Need for invasive monitoring, vasoactive medication use in the setting of recent CVA, patient requiring vasoactive medications to maintain mean arterial pressure Post-procedure Diagnosis: same as above Prior to Procedure: Informed Consent: The risks, benefits, indications, potential complications, and alternatives were explained to the patient and informed consent obtained. Attending Staff: Shahla House DO Resident: Tyson Romero DO PGY-2 Skin Prep: Chlorhexidine Anesthesia: 3 mL 1% lidocaine without epinephrine The identity of the patient was confirmed and a bedside time out was performed. Description of Procedure: The patient was placed flat and in slight Trendelenburg position. The Right Internal Jugular vein was identified using bedside ultrasound. After sterile prep and sterile drape utilizing standard sterile technique the superficial skin of the right internal jugular was anesthetized using 1% Lidocaine. The introducer needle was inserted into the I nternal Jugular Vein under direct ultrasound visualization. Venous blood was withdrawn. The syringe was removed and a guidewire was advanced into the introducer needle. The guidewire was visualized in the Internal Jugular Vein by ultrasound. A small incision was made at the skin surface with a scalpel and the introducer needle was exchanged for a dilator over the guidewire. After appropriate dilation was obtained, the dilator was exchanged for a central venous catheter. The wire was removed and the catheter was securely placed with adhesives at 15cm. A sterile Sorbav[place] shild was placed over the catheter at the insertion site. Complications: No complications noted. Estimated blood loss: Trace Patient tolerated the procedure well without hemodynamic compromise. At time of procedure completion, all ports aspirated and flushed properly. Post-procedure xray showed proper placement. Supervising Physician Co-Signing Physician Notes I was present and assisted with the entire procedure Coding CPT Codes Tubes, Drains, and Vasc Access - Tubes, Drains, and Vasc Access: Insertion Of Non-tunneled Catheter Age 5 Yrs> ([id number]) Tubes, Drains, and Vasc Access - Tubes, Drains, and Vasc Access: Ultrasound Guidance For Vascular ([id number]) Resident Activity Tracking Resident Involvement: Resident Care Provided Care Provided: Adult [facility] (Central Venous Catheter Placement)
--- NOTE | 2019-04-02 16:23 | CT Scan Report ---
CT SCAN OF THE BRAIN WITHOUT IV CONTRAST CLINICAL HISTORY: Stroke status post TPA. COMPARISON STUDY: CT of the brain dated 04/02/2019. TECHNIQUE: Unenhanced axial CT scan of the brain is performed from the vertex to the skull base. A do se lowering technique was utilized adhering to the principles of ALARA. CT DOSE: 614.27 mGy.cm FINDINGS: Brain parenchyma: There are age-related involutional changes noting mild subcortical and periventric ular microangiopathic change. A chronic lacunar infarct is again seen in the leopoldo. There is no hemorr fercho, mass effect, or evidence of acute territorial ischemia by CT criteria. Haywood-white matter differ entiation is preserved. No extra-axial fluid collection is seen. Ventricles, sulci, cisterns: Prominent secondary to involutional change. Intracranial vasculature: There is atherosclerotic calcification of the cavernous carotid and vertebr al arteries. Calvarium: Unremarkable. Sinuses and mastoids: The visualized paranasal sinuses are clear. The mastoid air cells are well pneu matized. Orbits: The bony orbits are grossly intact. IMPRESSION: There is no hemorrhage, mass effect, or evidence of acute territorial ischemia by CT florentin espinosa. Electronically signed by: Carlos Toribio M.D. 04/02/2019 4:21 PM
--- NOTE | 2019-04-02 17:08 | Hospitalist Progress Note ---
Date of Service April 02, 2019 Assessment & Plan (1) Ischemic stroke: This is a 68-year-old male with significant PMH of HTN, HLD, GERD, AAA 3.6 cm monitored annually, prediabetes, history of nephrolithiasis who presents to [facility] ED secondary to strokelike symptoms 1.5 hours prior to arrival. Stroke alert initiated [facility] [address] brain negative for acute hemorrhage, but did reveal 8 mm low-tension focus in the right leopoldo. Pt met criteria for TPA administered 1642 on 04/01/19 with spontaneous improvement to RLE/RUE weakness and numbness along with slurred speech pt developed acute /worsening of rt extremity weakness at night with episode of hypotension stat CTA of head neck showed left vertebral artery occlusion second stroke alert was called given Iv fluid bolus , started on IV pressors to increase MAP ~100 to prevent cerebral hypoperfusion - pt's neurological deficit resolved after BP was stabilized rt IJ central line and arterial line placed for pressor support , monitoring of hemodynamics pt started on PO meds and diet after speech eval appreciate neurology eval pt will continue with dual antiplatelets on Brillinta 90 mg BID and aspirin cont high intensity statin appreciate input from neurology (2) Hypokalemia: replaced (3) HTN (hypertension): developed recurrence of rt sided neurological deficit with episode of hypotesnion symptom has resolved pts is continued in IV pressors to to allow cerebral perfusion apprecaite input from critical care (4) HLD (hyperlipidemia): on atorvastatin 20mg at outpt increase to 80mg for high intensity statin (5) Pre-diabetes: ICU hyperglycemic protocol (6) GERD (gastroesophageal reflux disease): cont H2 kahlil avoid PPI as pt will be on dual antiplateles due to acute CVA (7) DVT prophylaxis: SCD/TEDS Disposition: cont monitoring in ICU post TPA Follow up: PCP Dr. Leighann Colunga upon discharge along with appropriate neurology follow up Subjective pt seen in ICU room 108 alert and awake , no weakness or numbness on rt side tolerating diet no complain of SOB , chest pain or any other discomfort alert and oriented x3 , denies of any headache or visual issues Physical Exam Constitutional: WD/WN, vitals as above Eyes: PERRL, conjunctivae normal, anicteric sclerae ENMT: external ear and nose normal, oropharynx normal Neck: trachea midline, no thyromegaly Respiratory: normal respiratory effort, lungs clear to auscultation Cardiovascular: RRR, no murmur, no edema Gastrointestinal (Abdomen): normal bowel sounds, soft, nontender, no hepatosplenomegaly Musculoskeletal: Extremities: + abnormal strength rt upper ext 4/5 strength Neurologic: PERRL, EOMI, accommodation nl, no face palsy, no dysarthria Psychiatric: A+Ox3, euthymic affect Results & Data Vital Signs (Past 12 Hours) Vital Signs Temp Pulse Pulse Resp BP BP BP 04/02/19 16:00 36.7 C 91 H 98 H 24 153/72 H 04/02/19 15:30 83 23 167/62 H 04/02/19 15:18 85 20 164/77 H 04/02/19 15:00 36.7 C 94 H 78 18 159/67 H 167/62 H 04/02/19 14:00 94 H 19 155/72 H 04/02/19 13:31 75 23 147/71 H 04/02/19 13:16 72 22 144/74 H 04/02/19 13:01 81 22 148/76 H 04/02/19 12:46 76 21 155/76 H 04/02/19 12:45 75 25 H 04/02/19 12:35 93 H 20 163/73 H 04/02/19 12:30 88 23 04/02/19 12:16 73 23 154/65 H 04/02/19 12:00 36.9 C 72 21 139/63 04/02/19 11:47 70 04/02/19 11:46 78 22 146/67 H 04/02/19 11:31 89 23 150/64 H 04/02/19 11:16 79 20 154/64 H 04/02/19 11:01 96 H 19 144/70 H 04/02/19 11:00 92 H 23 04/02/19 10:47 70 04/02/19 10:46 102 H 25 H 164/66 H 04/02/19 10:31 88 24 144/67 H 04/02/19 10:16 95 H 23 144/63 H 04/02/19 10:01 87 22 166/70 H 04/02/19 10:00 91 H 18 04/02/19 09:47 70 04/02/19 09:46 77 22 159/58 H 04/02/19 09:31 91 H 19 145/66 H 04/02/19 09:16 96 H 21 144/63 H 04/02/19 09:01 95 H 22 171/78 H 04/02/19 09:00 105 H 18 04/02/19 08:00 36.7 C 74 23 04/02/19 07:00 80 88 23 141/59 H 04/02/19 06:01 79 23 130/59 L 04/02/19 06:00 80 22 140/60 04/02/19 05:45 78 21 04/02/19 05:31 78 17 118/69 04/02/19 05:30 80 23 04/02/19 05:15 78 22 Pulse Ox 04/02/19 16:00 92 04/02/19 15:30 91 04/02/19 15:18 91 04/02/19 15:00 90 04/02/19 14:00 93 04/02/19 13:31 94 04/02/19 13:16 93 04/02/19 13:01 92 04/02/19 12:46 94 04/02/19 12:45 96 04/02/19 12:35 96 04/02/19 12:30 95 04/02/19 12:16 93 04/02/19 12:00 95 04/02/19 11:47 04/02/19 11:46 90 04/02/19 11:31 93 04/02/19 11:16 92 04/02/19 11:01 93 04/02/19 11:00 90 04/02/19 10:47 04/02/19 10:46 94 04/02/19 10:31 92 04/02/19 10:16 93 04/02/19 10:01 91 04/02/19 10:00 94 04/02/19 09:47 04/02/19 09:46 93 04/02/19 09:31 92 04/02/19 09:16 93 04/02/19 09:01 95 04/02/19 09:00 93 04/02/19 08:00 04/02/19 07:00 95 04/02/19 06:01 95 04/02/19 06:00 97 04/02/19 05:45 94 04/02/19 05:31 98 04/02/19 05:30 96 04/02/19 05:15 97
[2019-04-02 17:47] LABS: Chol HDL Ratio 2; Cholesterol 94 mg/dl (0-200); HDL Cholesterol 39 mg/dl; LDL Cholesterol Calculated 44 mg/dl; Triglycerides 54 mg/dl (0-150); VLDL Cholesterol 11 mg/dl
[2019-04-02] MEDS ORDERED: ICU MODERATE HYPERGLYCEMIA PROTOCOL ONE (21:52)
[2019-04-02] MEDS ORDERED: GLUCOSE 40% GEL 15 GM TUBE PO PRN (22:30)
[2019-04-02] MEDS ORDERED: DEXTROSE 50% 50 ML SYRINGE IV PRN (22:30)
[2019-04-02] MEDS ORDERED: GLUCOSE 10 TABS/TUBE PO PRN (22:30)
[2019-04-02] MEDS ORDERED: GLUCAGON FOR INJ 1 MG VIAL IM PRN (22:30)
[2019-04-02] MEDS ORDERED: CARBOHYDRATES FOR HYPOGLYCEMIA PO PRN (22:30)
[2019-04-02] MEDS ORDERED: INSULIN GLARGINE SOLOSTAR 100 UNITS/ML 3 ML PEN SC ONE (22:30)
[2019-04-02] MEDS: NOREPINEPHRINE BIT INJ 32 MG in DEXTROSE 5% 500 ML IV SCH (22:37)
[2019-04-02] MEDS: INSULIN ASPART 100 UNITS/ML 3 ML PEN SC SCH (22:45)
[2019-04-03] MEDS ORDERED: PHARMACY GLYCEMIC MGMT CONSULT PRN (01:08)
[2019-04-03] MEDS: INSULIN ASPART 100 UNITS/ML 3 ML PEN SC SCH ×5 (02:03→20:12)
[2019-04-03 04:46] LABS: Basophils # (auto) 0.03 K/uL (0-0.2); Basophils % (auto) 0.2 %; Eosinophils # (auto) 0.01 K/uL (0-0.5); Eosinophils % (auto) 0.1 %; Hematocrit (blood only) 38.1 % (42-52); Hemoglobin 13.3 g/dL (14.0-18.0); Immature Granulocytes # (auto) 0.05 K/uL (0.00-0.02); Immature Granulocytes % (auto) 0.3 %; Lymphocytes # (auto) 2.26 K/uL (1.2-3.4); Lymphocytes % (auto) 11.5 %; Mean Corpuscular Hemoglobin 30.1 pg (25-34); Mean Corpuscular Hgb Conc 34.9 g/dL (32-36); Mean Corpuscular Volume 86.2 fL (80-100); Mean Platelet Volume 10.2 fL (7.4-10.4); Monocytes # (auto) 1.61 K/uL (0.11-0.59); Monocytes % (auto) 8.2 %; Neutrophils # (auto) 15.71 K/uL (1.4-6.5); Neutrophils % (auto) 79.7 %; Platelet Count 259 K/uL (130-400); RDW Standard Deviation 41.1 fL (36.4-46.3); Red Blood Count 4.42 M/uL (4.7-6.1); White Blood Count 19.67 K/uL (4.8-10.8)
[2019-04-03 05:13] LABS: BUN Creatinine Ratio 10.6 (10-20); Calcium 8.2 mg/dl (8.5-10.1); Creatinine Clr Calc Pharmacy 103.8 ml/min; Est GFR (African American) 101.4; Est GFR (Non-African American) 87.5; Magnesium 1.9 mg/dl (1.8-2.4); Potassium 3.1 mmol/L (3.5-5.1)
[2019-04-03 05:27] LABS: Estimated Average Glucose 117 mg/dl; Hemoglobin A1C 5.7 % (4.5-5.6)
[2019-04-03] MEDS ORDERED: POTASSIUM PHOS 3 MMOL/1 ML INFUSION IV STA (06:25)
[2019-04-03] MEDS: SODIUM CHLORIDE 0.9% 1000ML 1,000 ML IV SCH (06:28)
[2019-04-03] MEDS ORDERED: POTASSIUM PHOSPHATE 15 MMOL in SODIUM CHLORIDE 0.9% 250 ML IV ONE (06:30)
--- NOTE | 2019-04-03 06:38 | Critical Care Progress Note ---
Date of Service April 03, 2019 Assessment & Plan (1) Acute CVA (cerebrovascular accident): Mr. Dwight Patino is a 68 y/o male with past medical history of HTN, HLD with new onset CVA with right sided hemiparesis who received TPA in ED. Neuro New CVA with right sided hemiparesis that appear to be improving from deficit at onset but still present. TPA was given in ED with last given approximately 4:22pm on 04/01/19. MRI of brain w/o performed 04/01/19 showed left veretebral occlusion and crhonic small vessel ischemic change, including suspected involvement of the left medulla. Old lacunar infarct in the right paramedian leopoldo. No acute intracranial abnormality. 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 Significant vessel irregularity of the left vertebral artery in the region of the left PICA origin. Findings could represent a short segment dissection or thrombotic/atherosclerotic occlusion of a portion of the left vertebral artery. There was no evidence of aneurysm. Neck CTA: Atheromatous changes but no evidence of hemodynamically significant internal carotid artery stenosis; dominate right vertebral artery; Luminal irregularity of the distal left vertebral artery with distal occlusion. This either represents a dissection or atherosclerotic occlusion. Carotid Doppler U/S: No evidence of hemodynamically significant carotid stenosis Enteric tube will need to be placed, gently, for statin medication administration Repeat Head CT this morning showed in acute intracranial abnormality. There was concern that location of CVA in regards to medullary control of BP may have likely resulted in unprovoked, precipitous drop in blood pressure with subsequent perfusion injury and return of CVA symptoms/signs. This was improved overnight with 2.5L NS as well as albumin. Overnight team discussed cause with [facility] Neuro who did not recommend transfer as they would not intervene endovascularly. He was given Integrilin . Levophed drip was initiated with the intent for titration to maintain maps at ~100. He was given rectal ASA and will give Baby ASA starting 11/5 AM with addition of Brilinta for dual antiplatelet therapy. Complains of nausea most likely from posterior circulation deficits to brainstem and will treat with Ativan 0.5mg IV q6h PRN. Exam today shows no significant weakness on right side as compared to left; he tolerated meals without difficulty and had NG tube removed after passing swallowing study. No sensory deficits today and Cranial nerves are intact. Will decrease MAP requirement to 80 today and assess neurological signs/symptoms, if return will increase MAP. Cardiac/Vascular Past Medical Hx of HTN and HLD Continue with hemodynamically monitoring Placed central venous cath and Arterial line this AM at bedside CXR showed cardiomegaly with no acute cardiopulmonary abnormality Echocardiogram performed * EF = 65=70%; Mild concentric LVH; aortic valve sclerosis without significant stenosis; trace aortic regurg; ascending aorta mildly dilated 4.3cm; no interarterial shunt. Pressors: Levophed to maintain MAPs >80 Suspect underlying ROLANDO, will perform overnight pulse ox on BIPAP tonight Pulm Continue with supplemental oxygen to maintain adequate oxygenation GI Speech eval with normal swallowing study and tolerating meals without difficulty. Complaints of nausea most likely from neuro CVA and will use Ativan 0.5mg IV q6H PRN inplace of traditional anti-emetics which aren't efficacious. Renal/Lytes No signs of kidney dysfunction; hypokalemic this AM 3.1 - will replace. Phosphorous low this AM 2.0, will replace. Mag 1.9 WNL. Weight +4.0kg with 24 hr R=6928; F=2549; Net =+3190; 24-hour Urine Output = 1.51 mL/kg/hr No current Ch cath in place Endo No history of thyroid disease or diabetes A1C=5.7 Heme WBC elevated 19.67 from stress response. Hgb and Platelets WNL today ID No current concerns for infection Lines Right Central Venous Cath IJ; left radial [place] DVT ppx: SCDs Resuscitation status: Full Code Supervising Physician Co-Signing Physician Notes Dr. Romero was resident physician during care of patient. I separately evaluated patient for jennings portions of the history and the exam. I was present during the critical portion of medical decision making, and I discussed the case with the resident. I generally agree with the findings and plan. Patient was discussed in multidisciplinary rounds. Patient is continuing to improve. We will slowly decrease his vasoactive's today previous goal of a map of 100 we will decrease that to 80 and hopefully wean off his vasoactive medication. If he becomes symptomatic we will consider reinstituting pressors however I feel we should be able to discontinue that today and then proceed with physical therapy and Occupational Therapy. Patient remains critically ill due to vasoactive medication need. Subjective Mr. Carey notes significant improvement and notes being near back to baseline. He does not endorse chest pain, headache, new/worsening numbness/weakness, difficulty with swallowing or eating, nausea, vomiting, fever or chills. Review of Systems Review of Systems: All systems reviewed & are unremarkable except as noted in HPI & below Physical Exam Constitutional: WD/WN, vitals as above cooperative and comfortable Eyes: + anicteric sclerae, PERRL and EOM intact bilaterally ENMT: Nose: no external nose abnormality and no epistaxis Neck: normal visual inspection and trachea midline Respiratory: normal respiratory effort, lungs clear to auscultation Cardiovascular: Rate/Rhythm: regular rate and regular rhythm Gastrointestinal (Abdomen): Percussion/Palpation: abdomen soft; abdomen nontender, no guarding and abdomen not rigid Musculoskeletal: Head/Neck/Chest: normocephalic and head atraumatic Skin: no rashes, warm and dry Neurologic: CN's II-XI intact bilaterally, moves all extremities and awake; no focal motor deficits and not confused Speech / Cognition: normal speech Cranial Nerves: EOM intact bilaterally, normal facial strength, tongue midline, able to elevate shoulders bilaterally and symmetric palate elevation Psychiatric: A+Ox3, euthymic affect Results & Data Vital Signs (Past 12 Hours) Vital Signs Temp Pulse Resp BP Pulse Ox 04/03/19 06:15 60 18 162/58 H 89 L 04/03/19 06:00 59 L 23 154/63 H 89 L 04/03/19 05:45 59 L 26 H 173/65 H 90 04/03/19 05:31 63 18 161/72 H 93 04/03/19 05:12 80 28 H 167/85 H 93 04/03/19 04:45 70 23 164/76 H 93 04/03/19 04:30 37.2 C 71 24 161/72 H 96 04/03/19 04:00 59 L 159/53 H 96 04/03/19 03:30 61 21 140/61 94 04/03/19 03:01 67 26 H 152/58 H 93 04/03/19 02:45 65 23 162/61 H 94 04/03/19 02:01 64 32 H 168/68 H 95 04/03/19 01:45 70 5 L 170/71 H 93 04/03/19 01:16 58 L 17 159/53 H 93 04/03/19 01:01 60 17 157/52 H 93 04/03/19 00:45 60 23 152/62 H 94 04/03/19 00:31 56 L 20 152/61 H 93 04/03/19 00:15 58 L 20 150/61 H 93 04/03/19 00:01 71 24 155/58 H 93 04/03/19 00:00 68 93 04/02/19 23:45 65 19 154/59 H 94 04/02/19 23:30 70 23 151/80 H 94 04/02/19 23:15 69 24 161/72 H 93 04/02/19 23:00 37.4 C 76 27 H 169/65 H 93 04/02/19 22:50 88 16 157/80 H 96 04/02/19 22:30 74 26 H 179/78 H 96 04/02/19 22:16 61 25 H 163/51 H 95 04/02/19 22:00 66 23 159/56 H 94 04/02/19 21:45 78 24 154/57 H 94 04/02/19 21:30 69 26 H 149/56 H 95 04/02/19 21:15 71 23 149/48 H 93 04/02/19 21:00 82 25 H 140/61 90 04/02/19 20:45 75 17 141/74 H 92 04/02/19 20:30 75 137/67 88 L 04/02/19 20:15 77 25 H 142/72 H 91 04/02/19 20:00 80 21 144/74 H 91 04/02/19 19:45 88 19 147/71 H 93 04/02/19 19:30 88 23 151/75 H 92 04/02/19 19:15 80 31 H 154/55 H 91 04/02/19 19:11 80 04/02/19 19:00 95 H 18 166/72 H 93 Laboratory Results Laboratory Results - last 24 hr 04/01/19 04/02/19 04/02/19 16:27 09:29 13:27 WBC RBC Hgb Hct MCV MCH MCHC RDW Std Deviation RDW Coeff of [place] Plt Count MPV Immature Gran % (Auto) Neut % (Auto) Lymph % (Auto) [place] % (Auto) Eos % (Auto) Baso % (Auto) Immature Gran # (Auto) Neut # (Auto) Lymph # (Auto) [place] # (Auto) Eos # (Auto) Baso # (Auto) Sodium Potassium Chloride Carbon Dioxide Anion Gap BUN Creatinine Est Cr Clr Drug Dosing Est GFR ( Amer) Est GFR (Non-Af Amer) BUN/Creatinine Ratio Glucose POC Glucose POC Glucose (other) 196 H Estimat Average Glucose Hemoglobin A1c Calcium Phosphorus Magnesium Triglycerides Cholesterol LDL Cholesterol, Calc VLDL Cholesterol, Calc HDL Cholesterol Cholesterol/HDL Ratio Random Cortisol Blood Type O Positive Blood Type Recheck O Positive Antibody Screen NEGATIVE Crossmatch See Detail 04/02/19 04/02/19 04/02/19 17:04 17:04 18:06 WBC RBC Hgb Hct MCV MCH MCHC RDW Std Deviation RDW Coeff of [place] Plt Count MPV Immature Gran % (Auto) Neut % (Auto) Lymph % (Auto) [place] % (Auto) Eos % (Auto) Baso % (Auto) Immature Gran # (Auto) Neut # (Auto) Lymph # (Auto) [place] # (Auto) Eos # (Auto) Baso # (Auto) Sodium Potassium Chloride Carbon Dioxide Anion Gap BUN Creatinine Est Cr Clr Drug Dosing Est GFR ( Amer) Est GFR (Non-Af Amer) BUN/Creatinine Ratio Glucose POC Glucose POC Glucose (other) 181 H Estimat Average Glucose 117 Hemoglobin A1c 5.7 H Calcium Phosphorus Magnesium Triglycerides 54 Cholesterol 94 LDL Cholesterol, Calc 44 VLDL Cholesterol, Calc 11 HDL Cholesterol 39 Cholesterol/HDL Ratio 2 Random Cortisol Blood Type Blood Type Recheck Antibody Screen Crossmatch 04/02/19 04/03/19 04/03/19 20:55 01:50 04:32 WBC 19.67 H RBC 4.42 L Hgb 13.3 L Hct 38.1 L MCV 86.2 MCH 30.1 MCHC 34.9 RDW Std Deviation 41.1 RDW Coeff of [place] 13.0 Plt Count 259 MPV 10.2 Immature Gran % (Auto) 0.3 Neut % (Auto) 79.7 Lymph % (Auto) 11.5 [place] % (Auto) 8.2 Eos % (Auto) 0.1 Baso % (Auto) 0.2 Immature Gran # (Auto) 0.05 H Neut # (Auto) 15.71 H Lymph # (Auto) 2.26 [place] # (Auto) 1.61 H Eos # (Auto) 0.01 Baso # (Auto) 0.03 Sodium Potassium Chloride Carbon Dioxide Anion Gap BUN Creatinine Est Cr Clr Drug Dosing Est GFR ( Amer) Est GFR (Non-Af Amer) BUN/Creatinine Ratio Glucose POC Glucose POC Glucose (other) 180 H 173 H Estimat Average Glucose Hemoglobin A1c Calcium Phosphorus Magnesium Triglycerides Cholesterol LDL Cholesterol, Calc VLDL Cholesterol, Calc HDL Cholesterol Cholesterol/HDL Ratio Random Cortisol Blood Type Blood Type Recheck Antibody Screen Crossmatch 04/03/19 04/03/19 04/03/19 04:32 04:45 08:39 WBC RBC Hgb Hct MCV MCH MCHC RDW Std Deviation RDW Coeff of [place] Plt Count MPV Immature Gran % (Auto) Neut % (Auto) Lymph % (Auto) [place] % (Auto) Eos % (Auto) Baso % (Auto) Immature Gran # (Auto) Neut # (Auto) Lymph # (Auto) [place] # (Auto) Eos # (Auto) Baso # (Auto) Sodium 143 Potassium 3.1 L Chloride 112 H Carbon Dioxide 24 Anion Gap 7.0 BUN 10 D Creatinine 0.91 Est Cr Clr Drug Dosing 103.8 Est GFR ( Amer) 101.4 Est GFR (Non-Af Amer) 87.5 BUN/Creatinine Ratio 10.6 Glucose 173 H POC Glucose 164 H POC Glucose (other) Estimat Average Glucose Hemoglobin A1c Calcium 8.2 L Phosphorus 2.0 L D Magnesium 1.9 Triglycerides Cholesterol LDL Cholesterol, Calc VLDL Cholesterol, Calc HDL Cholesterol Cholesterol/HDL Ratio Random Cortisol 23.10 Blood Type Blood Type Recheck Antibody Screen Crossmatch Medications Administered Aspirin (Ecotrin Ectab) 81 mg PO QAM [facility] Stop: 05/03/19 08:59 Last Admin: 04/03/19 08:12 Dose: 81 mg Documented by: [id number] Enoxaparin Sodium (Lovenox) 40 mg SQ QAM [facility] Stop: 05/03/19 09:14 Last Admin: 04/03/19 09:48 Dose: 40 mg Documented by: [id number] Famotidine 20 mg/ Syringe 5 mls @ 2.5 mls/min IV BID [facility] Stop: 05/02/19 08:59 Last Admin: 04/03/19 08:13 Dose: 2.5 mls/min Documented by: [id number] Admin: 04/02/19 20:57 Dose: 2.5 mls/min Documented by: [id number] Admin: 04/02/19 10:50 Dose: 2.5 mls/min Documented by: [id number] Lorazepam (Ativan) 0.5 mg in 1 mls @ 0.5 mls/min IV Q6H PRN PRN Reason: Nausea Stop: 05/02/19 09:47 Last Admin: 04/02/19 10:53 Dose: 0.5 mls/min Documented by: [id number] Norepinephrine Bitartrate 32 (mg/ Dextrose) 532 mls @ 40.69 mls/hr IV .[id number] RITCHIE; Protocol Stop: 05/02/19 22:29 Last Titration: 04/03/19 09:49 Dose: 0.36 mcg/kg/min, 40.7 mls/hr Documented by: [id number] Titration: 04/03/19 08:53 Dose: 0.38 mcg/kg/min, 43 mls/hr Documented by: [id number] Titration: 04/03/19 08:15 Dose: 0.4 mcg/kg/min, 45.2 mls/hr Documented by: [id number] Titration: 04/03/19 07:10 Dose: 0.41 mcg/kg/min, 46.3 mls/hr Documented by: [id number] Cosigned by: [id number] Admin: 04/02/19 22:37 Dose: 0.41 mcg/kg/min, 46.3 mls/hr Documented by: [id number] Cosigned by: [id number] Potassium Chloride (K Rohit / Wtr) 20 meq in 100 mls @ 50 mls/hr IV Q2H RITCHIE Stop: 04/03/19 10:24 Last Admin: 04/03/19 08:47 Dose: 50 mls/hr Documented by: [id number] Infusion: 04/03/19 08:40 Dose: 50 mls/hr Documented by: [id number] Admin: 04/03/19 06:40 Dose: 50 mls/hr Documented by: [id number] Insulin Aspart (Novolog Flexpen) 0 units SC Q6 RITCHIE; Protocol Stop: 05/02/19 22:29 Last Admin: 04/03/19 06:28 Dose: Not Given Documented by: [id number] Cosigned by: [id number] Admin: 04/03/19 02:03 Dose: Not Given Documented by: [id number] Cosigned by: [id number] Admin: 04/02/19 22:45 Dose: Not Given Documented by: [id number] Cosigned by: [id number] Ioversol (Optiray 320 125ml) 125 ml IV ONCE PRN PRN Reason: Interaction Checking Stop: 04/06/19 02:30 Last Admin: 04/02/19 02:32 Dose: 118 ml Documented by: [id number] Ticagrelor (Brilinta) 90 mg PO BID [facility]ITCHIE Stop: 05/02/19 09:44 Last Admin: 04/03/19 08:12 Dose: 90 mg Documented by: [id number] Admin: 04/02/19 20:46 Dose: 90 mg Documented by: [id number] Admin: 04/02/19 11:08 Dose: 90 mg Documented by: [id number] PG Care Time/CCT Total # of Minutes Spent Total Time Spent: 35 Total Time Spent with Patient: Total time spent is greater than 50% in coordination of care (as documented) at patient's floor/unit and/or counseling patient: Critical Care Time: Yes Total Critical Care Time: 35 I have personally spent 35 minutes of critical care time in the direct management of this patient. This is a life/limb threatening event. This includes time spent evaluating patient, direct bedside care, chart review, placing orders, interpretation of diagnostic studies, discussion with consultants, patient, and/or family members regarding treatment decisions, as well as other required patient management activities. This time is exclusive of all separately billable procedures, and teaching time and separate from and in addition to any other critical care service time. Resident Activity Tracking Resident Involvement: Resident Care Provided Care Provided: Adult Hospital Medicine (ICU)
[2019-04-03] MEDS: POTASSIUM CHLORIDE / WTR 20 MEQ/100 ML PLCT IV SCH ×2 (06:40→08:47)
[2019-04-03] MEDS: ATORVASTATIN 20 MG TAB PO SCH (08:12)
[2019-04-03] MEDS: TICAGRELOR 90 MG TAB PO SCH ×2 (08:12→20:09)
[2019-04-03] MEDS: ASPIRIN 81 MG ECTAB PO SCH (08:12)
[2019-04-03] MEDS: FAMOTIDINE 20 MG in SYRINGE 3 ML IV SCH (08:13)
[2019-04-03] MEDS: ENOXAPARIN INJ 40 MG/0.4 ML SYR SQ SCH (09:48)
--- NOTE | 2019-04-03 10:34 | Pharmacy Report ---
Glycemic Control Consultation - Date of Service April 03, 2019 - Scope Scope: Glycemic Pharmacist consulted by Conchita Rivera PA-C on 04/02/19 for glycemic control and to write orders per formerly [facility] inpatient glycemic control protocol - Objective Weight: 117.3 kg Accuchecks BSG (last 24hrs): 04/02/19 04/02/19 04/02/19 13:27 18:06 20:55 Glucose POC Glucose POC Glucose (other) 196 H 181 H 180 H 04/03/19 04/03/19 04/03/19 01:50 04:32 08:39 Glucose 173 H POC Glucose 164 H POC Glucose (other) 173 H Laboratory Data (last 24hrs): 04/03/19 04:32 Potassium 3.1 L Carbon Dioxide 24 Anion Gap 7.0 Creatinine 0.91 Est Cr Clr Drug Dosing 103.8 HbA1c: Hemoglobin A1c 5.7 % (4.5-5.6) H 04/02/19 17:04 - Recent Pertinent Medications Outpatient Anti-diabetic Regimen: * n/a * A1c = 5.7% 04/02/19 The patient is currently receiving: * Basal insulin: Lantus 20 units HS x 1 * Correctional Insulin: Novolog Correction per scale ACHS Goal Range: Low 110 mg/dL - High 180 mg/dL Correction Factor: 20 mg/dL/unit * Prandial insulin: Per carb ratio of 1 unit per 7 grams CHO consumed Risk Factors for Insulin Resistance: * Steroids: * Infection: * Pressors: Norepinephrine @ 0.36 mcg/kg/min * IVF: * Recent Surgery * Diet: heart healthy * Mechanical Ventilation: - Assessment & Plan Assessment & Plan: ASSESSMENT: * Mr. Patino admitted to ICU following tpa administration for acute CVA, MRI revealed a left vertebral occlusion, old lacunar infarct, concern for location in regards to medullary control of BP- patient was started on norepinephrine titrated up to MAP of 100, today titrating down targeting MAP of 80, with observation of neuro symptoms * Now tolerating diet after passing swallow evaluation * Patient's A1c 04/03 was 5.7%, BSGs ranging from 164-196, which met criteria for basal/bolus per hyperglycemia protocol ordered * Do not want to exacerbate neuro symptoms with low blood sugars, therefore goal range 110-180, patient has consistently been just above or within goal * Patient received weight based stress of 1 lantus last night, ordered stress of 2 novolog orders PLAN FOR INPATIENT GLYCEMIC CONTROL: * Basal insulin * Lantus will scale for this evening * Bolus insulin * NovoLog per scale ACHS or Q6hrs while NPO * Goal Range: Low 110 mg/dL - High 180 mg/dL * Correction Factor: 20 mg/dL/unit * Nutritional / Prandial insulin per carb ratio of 1 unit per 13 grams CHO consumed * Please note that the plan above was derived based on current level of insulin resistance and hospital stress. These recommendations are appropriate for inpatient admission only. Plan of care upon discharge will need to be reassessed to avoid potential outpatient hypo/hyperglycemia. Thank you.
[2019-04-03] MEDS: NOREPINEPHRINE BIT INJ 32 MG in DEXTROSE 5% 500 ML IV SCH ×2 (10:51→11:34)
--- NOTE | 2019-04-03 12:31 | Hospitalist Progress Note ---
Date of Service April 03, 2019 Assessment & Plan (1) Ischemic stroke: Acute CVA: With left vertebral artery occlusion This is a 68-year-old male with significant PMH of HTN, HLD, GERD, AAA 3.6 cm monitored annually, prediabetes, history of nephrolithiasis who presents to [facility] ED secondary to strokelike symptoms 1.5 hours prior to arrival. Stroke alert initiated [facility] [address] brain negative for acute hemorrhage, but did reveal 8 mm low-tension focus in the right leopoldo. Pt met criteria for TPA administered 1642 on 04/01/19 with spontaneous improvement to RLE/RUE weakness and numbness along with slurred speech MRI of brain w/o : 04/01/19 showed left veretebral occlusion and crhonic small vessel ischemic change, including suspected involvement of the left medulla. Old lacunar infarct in the right paramedian leopoldo. No acute intracranial abnormality. 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 Significant vessel irregularity of the left vertebral artery in the region of the left PICA origin. Findings could represent a short segment dissection or thrombotic/atherosclerotic occlusion of a portion of the left vertebral artery. There was no evidence of aneurysm. Neck CTA: Atheromatous changes but no evidence of hemodynamically significant internal carotid artery stenosis; dominate right vertebral artery; Luminal irregularity of the distal left vertebral artery with distal occlusion. This either represents a dissection or atherosclerotic occlusion. Carotid Doppler U/S: No evidence of hemodynamically significant carotid stenosis Repeat Head CT post tPA showed in acute intracranial abnormality/no bleeding or Hge Echocardiogram : EF = 65=70%; Mild concentric LVH; aortic valve sclerosis without significant stenosis; trace aortic regurg; ascending aorta mildly dilated 4.3cm; no interarterial shunt./no ASD pt developed acute /worsening of rt extremity weakness at night of 04/02/2019 with episode of hypotension stat CTA of head neck showed left vertebral artery occlusion second stroke alert was called There was concern that location of CVA in regards to medullary control of BP may have likely resulted in unprovoked, precipitous drop in blood pressure with subsequent perfusion injury and return of CVA symptoms/signs. This was improved overnight with 2.5L NS as well as albumin. given Iv fluid bolus , started on IV pressors to increase MAP ~100 to prevent cerebral hypoperfusion - pt's neurological deficit resolved after BP was stabilized rt IJ central line and arterial line placed for pressor support , monitoring of hemodynamics On Pressors: Levophed started to wean down with maintaining MAPs >80 pt started on PO meds and diet after speech eval appreciate neurology eval pt will continue with dual antiplatelets on Brillinta 90 mg BID and aspirin cont high intensity statin appreciate input from neurology 04/03/2019 -Continues to do well clinically, Almost resolution of right extremity weakness, Headache, no visual changes, no dizzy spell or lightheadedness Continue to monitor in ICU as long patient requiring IV pressors Patient will be continued with dual antiplatelet Brilinta 90 mg twice daily/aspirin 81 mg daily at least 3 weeks Then continue on Brilinta daily for lifelong-no major bleeding complication noted We will contact patient's pharmacy for insurance coverage of Brilinta If Brilinta is not covered, Antiplatelets can be changed to Plavix 75 mg daily ordered for PT OT out Patient follow-up with neurology Possible ROLANDO : Patient was scheduled for sleep study as an outpatient on May 2019 Episodes of desaturation noted overnight overnight pulse oximetry ordered Given on the result of pulse nocturnal- , if patient qualifies,will need arrangement for home CPAP (2) Hypokalemia: Low potassium/low phosphorus Replaced by ICU team, continue to monitor electrolytes (3) HTN (hypertension): developed recurrence of rt sided neurological deficit with episode of hypotesnion symptom has resolved pts is continued in IV pressors to to allow cerebral perfusion appreciate input from critical care (4) HLD (hyperlipidemia): on atorvastatin 20mg at outpt increase to 80mg for high intensity statin (5) GERD (gastroesophageal reflux disease): cont H2 kahlil avoid PPI as pt will be on dual antiplateles due to acute CVA (6) DVT prophylaxis: Lovenox SC Disposition: cont monitoring in ICU as pt still on IV pressors , requiring A -line to monitor BP closely possible transfer to PCU if BP remains stable off pressors Follow up: PCP Dr. Leighann Colunga upon discharge along with appropriate neurology follow up Subjective Patient is awake and alert, conversing, very comfortable Denies of any weakness, or paresthesia No complaint of shortness of breath, chest no chest heaviness, no dizzy spell or lightheadedness Still on IV Levophed drip, blood pressure has been stable SBP> 160 Plan to wean down then discontinue IV pressors keeping the MAP (mean arterial pressure) around 80, to prevent cerebral perfusion Physical Exam Constitutional: WD/WN, vitals as above Eyes: PERRL, conjunctivae normal, anicteric sclerae ENMT: external ear and nose normal, oropharynx normal Neck: trachea midline, no thyromegaly Respiratory: normal respiratory effort, lungs clear to auscultation Cardiovascular: RRR, no murmur, no edema Gastrointestinal (Abdomen): normal bowel sounds, soft, nontender, no hepatosplenomegaly Musculoskeletal: no cyanosis or clubbing, extremities motor strength 5/5 Extremities: strength 5/5 throughout Neurologic: PERRL, EOMI, accommodation nl, no face palsy, no dysarthria Psychiatric: A+Ox3, euthymic affect Results & Data Vital Signs (Past 12 Hours) Vital Signs Temp Pulse Resp BP Pulse Ox 04/03/19 11:31 37 C 72 18 164/70 H 94 04/03/19 11:00 66 22 156/56 H 92 04/03/19 10:32 63 22 153/68 H 93 04/03/19 10:13 69 29 H 132/86 92 04/03/19 09:42 75 23 156/96 H 94 04/03/19 09:31 65 29 H 150/62 H 91 04/03/19 09:30 67 29 H 91 04/03/19 09:01 82 31 H 119/93 92 04/03/19 08:45 85 28 H 158/85 H 93 04/03/19 08:30 88 28 H 173/80 H 95 04/03/19 08:15 92 H 21 158/85 H 94 04/03/19 08:00 82 34 H 162/81 H 91 04/03/19 07:46 85 23 166/72 H 92 04/03/19 07:30 67 28 H 168/79 H 93 04/03/19 07:16 61 28 H 157/67 H 92 04/03/19 07:01 62 23 162/76 H 92 04/03/19 06:45 68 24 163/79 H 93 04/03/19 06:15 60 18 162/58 H 89 L 04/03/19 06:00 59 L 23 154/63 H 89 L 04/03/19 05:45 59 L 26 H 173/65 H 90 04/03/19 05:31 63 18 161/72 H 93 04/03/19 05:12 80 28 H 167/85 H 93 04/03/19 04:45 70 23 164/76 H 93 04/03/19 04:30 37.2 C 71 24 161/72 H 96 04/03/19 04:00 59 L 159/53 H 96 04/03/19 03:30 61 21 140/61 94 04/03/19 03:01 67 26 H 152/58 H 93 04/03/19 02:45 65 23 162/61 H 94 04/03/19 02:01 64 32 H 168/68 H 95 04/03/19 01:45 70 5 L 170/71 H 93 04/03/19 01:16 58 L 17 159/53 H 93 04/03/19 01:01 60 17 157/52 H 93 04/03/19 00:45 60 23 152/62 H 94
[2019-04-03] MEDS: SODIUM CHLORIDE 0.9% IV SCH (12:46)
[2019-04-03] MEDS: NOREPINEPHRINE BIT IV SCH (12:46)
--- NOTE | 2019-04-03 14:12 | Neurology Progress Note ---
Date of Service April 03, 2019 Assessment & Plan (1) Acute CVA (cerebrovascular accident): 1. continue to reduce MAP as tolerated currently MAP 80 2. then optimize HTN, HLD, DM LDL <70 3. currently on Brilinta 90 mg BID - care mgt to see if this is covered by insurance prior to discharge- would recommend plavix 75 mg daily 4. continue aspirin 81 mg daily 5. PT/OT speech for discharge needs when appropriate 6. TTE- no ASD 7. ICU for medical management follow up with neurology after discharge 4-6 weeks Christiana Sethi PAC schedule Supervising Physician Co-Signing Physician Notes Patient was seen and examined. I agree with Christiana Sethi PA-C as noted below. Symptoms improved. Patient reports feeling well without complaint. Denies weakness. On examine right hand weakness improved. Interosseous weakness improved. Continue DAP with high intensity statin. Blood pressure goal SBP<140, DBP<90 mm Hg. PT/OT. Valentina Quintanilla is a 68 year old male with PMH- HTN, HLD, GERD, AAA 3.6 cm monitored annually, prediabetes, history of nephrolithiasis who presented to [facility] [place] ED secondary to strokelike symptoms 1.5 hours prior to arrival on 04/01/2019 He was sitting at his computer when his tongue felt, "heavy." He further began experiencing right upper and lower extremity weakness, numbness, " my whole right side went numb." and had slurred speech per . EMS was called and stroke alert was initiated. He had a CT scan of brain which revealed 8 mm low attention focus in the right leopoldo, but no evidence of hemorrhage. He had tPa administered at 1400 on 04/01. He had spontaneous resolution of right lower extremity and upper extremity numbness/weakness and improvement in speech. He was also having significant nausea and given phenergan and zofran. He also had an episode of bradycardia with heart rates in high 30s, low 40s which was felt to be secondary to vagal stimulation due to nausea and diaphoresis. He was sent to the [facility] for further monitoring. Over night he had an episode of hypotension and return of symptoms. He currently being weaned off the pressors and MAP is now 80. He is more alert today and states he is feeling closer to his baseline. 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 Physical Exam Physical Exam: Gen: alert NAD PERRL/EOMI facial symmetry strength right biceps triceps hand director funeral intrinsics 5/5, hip flex 5/5 sensation intact to light touch Results & Data Vital Signs (Past 12 Hours) Vital Signs Temp Pulse Resp BP Pulse Ox 04/03/19 13:31 83 21 129/69 94 04/03/19 13:00 89 22 141/66 H 92 04/03/19 12:55 81 19 145/64 H 91 04/03/19 12:00 88 20 160/89 H 93 04/03/19 11:31 37 C 72 18 164/70 H 94 04/03/19 11:00 66 22 156/56 H 92 04/03/19 10:32 63 22 153/68 H 93 04/03/19 10:13 69 29 H 132/86 92 04/03/19 09:42 75 23 156/96 H 94 04/03/19 09:31 65 29 H 150/62 H 91 04/03/19 09:30 67 29 H 91 04/03/19 09:01 82 31 H 119/93 92 04/03/19 08:45 85 28 H 158/85 H 93 04/03/19 08:30 88 28 H 173/80 H 95 04/03/19 08:15 92 H 21 158/85 H 94 04/03/19 08:00 82 34 H 162/81 H 91 04/03/19 07:46 85 23 166/72 H 92 04/03/19 07:30 67 28 H 168/79 H 93 04/03/19 07:16 61 28 H 157/67 H 92 04/03/19 07:01 62 23 162/76 H 92 04/03/19 06:45 68 24 163/79 H 93 04/03/19 06:15 60 18 162/58 H 89 L 04/03/19 06:00 59 L 23 154/63 H 89 L 04/03/19 05:45 59 L 26 H 173/65 H 90 04/03/19 05:31 63 18 161/72 H 93 04/03/19 05:12 80 28 H 167/85 H 93 04/03/19 04:45 70 23 164/76 H 93 11/05/19 04:30 37.2 C 71 24 161/72 H 96 04/03/19 04:00 59 L 159/53 H 96 04/03/19 03:30 61 21 140/61 94 04/03/19 03:01 67 26 H 152/58 H 93 04/03/19 02:45 65 23 162/61 H 94 Laboratory Results Abnormal lab results 04/02/19 04/02/19 04/02/19 Range/Units 17:04 18:06 20:55 WBC (4.8-10.8) K/uL RBC (4.7-6.1) M/uL Hgb (14.0-18.0) g/dL Hct (42-52) % Immature Gran # (Auto) (0.00-0.02) K/uL Neut # (Auto) (1.4-6.5) K/uL Jefferson # (Auto) (0.11-0.59) K/uL Potassium (3.5-5.1) mmol/L Chloride (98-107) mmol/L Glucose (70-99) mg/dl POC Glucose (70-99) POC Glucose (other) 181 H 180 H (70-99) mg/dl Hemoglobin A1c 5.7 H (4.5-5.6) % Calcium (8.5-10.1) mg/dl Phosphorus (2.5-4.9) mg/dl 04/03/19 04/03/19 04/03/19 Range/Units 01:50 04:32 04:32 WBC 19.67 H (4.8-10.8) K/uL RBC 4.42 L (4.7-6.1) M/uL Hgb 13.3 L (14.0-18.0) g/dL Hct 38.1 L (42-52) % Immature Gran # (Auto) 0.05 H (0.00-0.02) K/uL Neut # (Auto) 15.71 H (1.4-6.5) K/uL Jefferson # (Auto) 1.61 H (0.11-0.59) K/uL Potassium 3.1 L (3.5-5.1) mmol/L Chloride 112 H (98-107) mmol/L Glucose 173 H (70-99) mg/dl POC Glucose (70-99) POC Glucose (other) 173 H (70-99) mg/dl Hemoglobin A1c (4.5-5.6) % Calcium 8.2 L (8.5-10.1) mg/dl Phosphorus 2.0 L D (2.5-4.9) mg/dl 04/03/19 04/03/19 Range/Units 08:39 11:28 WBC (4.8-10.8) K/uL RBC (4.7-6.1) M/uL Hgb (14.0-18.0) g/dL Hct (42-52) % Immature Gran # (Auto) (0.00-0.02) K/uL Neut # (Auto) (1.4-6.5) K/uL Jefferson # (Auto) (0.11-0.59) K/uL Potassium (3.5-5.1) mmol/L Chloride (98-107) mmol/L Glucose (70-99) mg/dl POC Glucose 164 H 124 H (70-99) POC Glucose (other) (70-99) mg/dl Hemoglobin A1c (4.5-5.6) % Calcium (8.5-10.1) mg/dl Phosphorus (2.5-4.9) mg/dl Diagnostic Findings CT head- repeat 04/02-There is no hemorrhage, mass effect, or evidence of acute territorial ischemia by CT criteria.
[2019-04-03] MEDS ORDERED: POLYETHYLENE (MIRALAX) 17 GM PACK PO PRN (15:23)
[2019-04-03] MEDS: ALBUTEROL 0.083% NEBU SOLN 3 ML VIAL NEB PRN (18:59)
[2019-04-03] MEDS: FAMOTIDINE 20 MG TAB PO SCH (20:09)
[2019-04-03] MEDS ORDERED: INSULIN GLARGINE SOLOSTAR 100 UNITS/ML 3 ML PEN SC ONE (21:00)
[2019-04-04] MEDS: NOREPINEPHRINE BIT IV SCH (01:05)
[2019-04-04] MEDS: SODIUM CHLORIDE 0.9% IV SCH (01:05)
[2019-04-04] MEDS ORDERED: POTASSIUM PHOS 3 MMOL/1 ML INFUSION IV STA (05:46)
[2019-04-04] MEDS: POTASSIUM CHLORIDE 20 MEQ TABCR PO STA ×2 (06:01→08:55)
[2019-04-04] MEDS: POTASSIUM PHOSPHATE 15 MMOL in SODIUM CHLORIDE 0.9% 250 ML IV ONE ×2 (06:01→08:47)
[2019-04-04] MEDS: POTASSIUM CHLORIDE / WTR 20 MEQ/100 ML PLCT IV SCH ×2 (06:02→07:27)
[2019-04-04] MEDS: ALBUTEROL 0.083% NEBU SOLN 3 ML VIAL NEB PRN (06:07)
[2019-04-04 06:19] LABS: Base Excess ABG 3.5 mEq/L (-9-1.8); HCO3 ABG 27 mmol/L (19-24); PCO2 ABG 35 mmHg (35-46); PO2 ABG 64 mm/Hg (80-95)
[2019-04-04 06:20] LABS: Allen Test Pos (Pos)
[2019-04-04 06:24] LABS: Basophils # (auto) 0.04 K/uL (0-0.2); Basophils % (auto) 0.5 %; Eosinophils # (auto) 0.08 K/uL (0-0.5); Eosinophils % (auto) 0.9 %; Hematocrit (blood only) 35.7 % (42-52); Hemoglobin 12.3 g/dL (14.0-18.0); Immature Granulocytes # (auto) 0.02 K/uL (0.00-0.02); Immature Granulocytes % (auto) 0.2 %; Lymphocytes # (auto) 1.65 K/uL (1.2-3.4); Lymphocytes % (auto) 18.7 %; Mean Corpuscular Hemoglobin 30.1 pg (25-34); Mean Corpuscular Hgb Conc 34.5 g/dL (32-36); Mean Corpuscular Volume 87.5 fL (80-100); Mean Platelet Volume 10.1 fL (7.4-10.4); Monocytes # (auto) 0.67 K/uL (0.11-0.59); Monocytes % (auto) 7.6 %; Neutrophils # (auto) 6.36 K/uL (1.4-6.5); Neutrophils % (auto) 72.1 %; Platelet Count 144 K/uL (130-400); RDW Coefficient of Variation 13.3 % (11.5-14.5); RDW Standard Deviation 42.6 fL (36.4-46.3); Red Blood Count 4.08 M/uL (4.7-6.1); White Blood Count 8.82 K/uL (4.8-10.8)
--- NOTE | 2019-04-04 06:34 | Critical Care Progress Note ---
Date of Service April 04, 2019 Assessment & Plan (1) Acute CVA (cerebrovascular accident): Mr. Dwight Patino is a 68 y/o male with past medical history of HTN, HLD with new onset CVA with right sided hemiparesis who received TPA in ED. Neuro New CVA with right sided hemiparesis that appear to be improving from deficit at onset but still present. TPA was given in ED with last given approximately 4:22pm on 04/01/19. MRI of brain w/o performed 04/01/19 showed left veretebral occlusion and crhonic small vessel ischemic change, including suspected involvement of the left medulla. Old lacunar infarct in the right paramedian leopoldo. No acute intracranial abnormality. 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 Significant vessel irregularity of the left vertebral artery in the region of the left PICA origin. Findings could represent a short segment dissection or thrombotic/atherosclerotic occlusion of a portion of the left vertebral artery. There was no evidence of aneurysm. Neck CTA: Atheromatous changes but no evidence of hemodynamically significant internal carotid artery stenosis; dominate right vertebral artery; Luminal irregularity of the distal left vertebral artery with distal occlusion. This either represents a dissection or atherosclerotic occlusion. Carotid Doppler U/S: No evidence of hemodynamically significant carotid stenosis Enteric tube will need to be placed, gently, for statin medication administration Repeat Head CT this morning showed in acute intracranial abnormality. There was concern that location of CVA in regards to medullary control of BP may have likely resulted in unprovoked, precipitous drop in blood pressure with subsequent perfusion injury and return of CVA symptoms/signs. This was improved night of with 2.5L NS as well as albumin. Overnight team discussed cause with [facility] who did not recommend transfer as they would not intervene endovascularly. He was given Integrilin. Levophed drip was initiated with the intent for titration to maintain maps at ~100. He was given rectal ASA and will give Baby ASA starting 11/5 AM with addition of Brilinta for dual antiplatelet therapy. Complains of nausea most likely from posterior circulation deficits to brainstem and will treat with Ativan 0.5mg IV q6h PRN. Exam today shows no significant weakness on right side as compared to left; he tolerated meals without difficulty and had NG tube removed after passing swallowing study. No sensory deficits today and Cranial nerves are intact. Currently off of pressors and no symptom return; stable for downgrade out of ICU Cardiac/Vascular Past Medical Hx of HTN and HLD Continue with hemodynamically monitoring Placed central venous cath and Arterial line this AM at bedside CXR showed cardiomegaly with no acute cardiopulmonary abnormality Echocardiogram performed * EF = 65=70%; Mild concentric LVH; aortic valve sclerosis without significant stenosis; trace aortic regurg; ascending aorta mildly dilated 4.3cm; no interarterial shunt. Pressors: Levophed to maintain MAPs >80 Suspect underlying ROLANDO, overnight pulse ox study obvious for ROLANDO Pulm Continue with supplemental oxygen PRN to maintain adequate oxygenation GI Speech eval with normal swallowing study and tolerating meals without difficulty. Previous complaints of nausea most likely from neuro CVA and will use Ativan 0.5mg IV q6H PRN inplace of traditional anti-emetics which aren't efficacious; currently no further episodes. Renal/Lytes No signs of kidney dysfunction; hypokalemic this AM 3.3 - will replace. Adequate urine output No current Ch cath in place Endo No history of thyroid disease or diabetes A1C=5.7 Heme WBC elevated from stress response. Hgb and Platelets WNL today ID No current concerns for infection Lines Right Central Venous Cath IJ; left radial Kalina discontinued DVT ppx: SCDs Resuscitation status: Full Code Supervising Physician Co-Signing Physician Notes Dr. Romero was resident physician during care of patient. I separately evaluated patient for jennings portions of the history and the exam. I was present during the critical portion of medical decision making, and I discussed the case with the resident. I generally agree with the findings and plan. Patient has subsequently had his arterial line discontinued, performed respiratory studies to possibly qualify for BiPAP as I do believe the patient has significant obstructive sleep apnea. Patient stable for downgrade out of ICU today. Subjective He reports he is back to his neuro baseline. Obvious apneic episodes overnight for pulse ox study. No chest pain, shortness of breath, nausea, vomiting, d izziness, no focal weakness/numbness, dysphagia. He notes he is pleased and grateful for the care he has received here. Review of Systems Review of Systems: All systems reviewed & are unremarkable except as noted in HPI & below Physical Exam Constitutional: WD/WN, vitals as above cooperative and comfortable Eyes: + anicteric sclerae, PERRL and EOM intact bilaterally ENMT: Nose: no external nose abnormality and no epistaxis Neck: normal visual inspection and trachea midline Respiratory: normal respiratory effort, lungs clear to auscultation Cardiovascular: Rate/Rhythm: regular rate and regular rhythm Gastrointestinal (Abdomen): Percussion/Palpation: abdomen soft; abdomen nontender, no guarding and abdomen not rigid Musculoskeletal: Head/Neck/Chest: normocephalic and head atraumatic Skin: no rashes, warm and dry Neurologic: CN's II-XI intact bilaterally, moves all extremities and awake; no focal motor deficits and not confused Speech / Cognition: normal speech Cranial Nerves: EOM intact bilaterally, normal facial strength, tongue midline, able to elevate shoulders bilaterally and symmetric palate elevation Psychiatric: A+Ox3, euthymic affect Results & Data Vital Signs (Past 12 Hours) Vital Signs Temp Pulse Pulse Pulse Resp BP Pulse Ox 04/04/19 06:08 73 22 94 04/04/19 05:01 74 18 125/64 93 04/04/19 04:30 67 28 H 123/66 94 04/04/19 04:01 64 18 132/62 94 04/04/19 03:30 54 L 17 140/54 L 93 04/04/19 03:25 55 L 04/04/19 03:00 52 L 17 125/64 92 04/04/19 02:30 59 L 18 118/83 94 04/04/19 02:00 59 L 28 H 130/59 L 92 04/04/19 01:30 55 L 4 L 148/64 H 92 04/04/19 01:23 55 L 04/04/19 01:00 53 L 0 L 132/59 L 92 04/04/19 00:30 56 L 9 L 143/65 H 93 04/04/19 00:00 59 L 29 H 119/65 92 04/03/19 23:51 36.9 C 04/03/19 23:32 68 04/03/19 23:30 67 27 H 135/72 93 04/03/19 23:00 60 22 125/67 94 04/03/19 22:30 67 28 H 136/68 92 04/03/19 22:00 36.8 C 63 15 117/55 L 91 04/03/19 21:30 61 24 124/52 L 93 04/03/19 21:00 68 26 H 107/51 L 91 04/03/19 20:51 78 04/03/19 20:30 75 30 H 110/60 92 04/03/19 20:06 36.8 C 82 32 H 105/60 93 04/03/19 19:30 94 H 23 98/60 L 92 04/03/19 19:00 98 H 25 H 116/68 93 04/03/19 18:59 97 H 16 97 Pulse Ox 04/04/19 06:08 04/04/19 05:01 04/04/19 04:30 04/04/19 04:01 04/04/19 03:30 04/04/19 03:25 90 04/04/19 03:00 04/04/19 02:30 04/04/19 02:00 04/04/19 01:30 04/04/19 01:23 92 04/04/19 01:00 04/04/19 00:30 04/04/19 00:00 04/03/19 23:51 04/03/19 23:32 91 04/03/19 23:30 04/03/19 23:00 04/03/19 22:30 04/03/19 22:00 04/03/19 21:30 04/03/19 21:00 04/03/19 20:51 91 04/03/19 20:30 04/03/19 20:06 04/03/19 19:30 04/03/19 19:00 04/03/19 18:59 Laboratory Results Laboratory Results - last 24 hr 04/03/19 04/03/19 04/03/19 04:45 08:39 11:28 WBC RBC Hgb Hct MCV MCH MCHC RDW Std Deviation RDW Coeff of [place] Plt Count MPV Immature Gran % (Auto) Neut % (Auto) Lymph % (Auto) [place] % (Auto) Eos % (Auto) Baso % (Auto) Immature Gran # (Auto) Neut # (Auto) Lymph # (Auto) [place] # (Auto) Eos # (Auto) Baso # (Auto) ABG pH ABG pCO2 ABG pO2 ABG HCO3 ABG O2 Saturation ABG Base Excess Fabien Test Barometric Pressure Oxygen Given Sodium Potassium Chloride Carbon Dioxide Anion Gap BUN Creatinine Est Cr Clr Drug Dosing Est GFR ( Amer) Est GFR (Non-Af Amer) BUN/Creatinine Ratio Glucose POC Glucose 164 H 124 H Calcium Phosphorus Magnesium Random Cortisol 23.10 04/03/19 04/03/19 04/04/19 16:36 20:11 05:57 WBC RBC Hgb Hct MCV MCH MCHC RDW Std Deviation RDW Coeff of [place] Plt Count MPV Immature Gran % (Auto) Neut % (Auto) Lymph % (Auto) [place] % (Auto) Eos % (Auto) Baso % (Auto) Immature Gran # (Auto) Neut # (Auto) Lymph # (Auto) [place] # (Auto) Eos # (Auto) Baso # (Auto) ABG pH 7.50 H ABG pCO2 35 ABG pO2 64 L ABG HCO3 27 H ABG O2 Saturation 93.0 ABG Base Excess 3.5 H Fabien Test Pos Barometric Pressure 740.5 Oxygen Given ROOM AIR Sodium Potassium Chloride Carbon Dioxide Anion Gap BUN Creatinine Est Cr Clr Drug Dosing Est GFR ( Amer) Est GFR (Non-Af Amer) BUN/Creatinine Ratio Glucose POC Glucose 102 H 125 H Calcium Phosphorus Magnesium Random Cortisol 04/04/19 04/04/19 05:57 05:57 WBC 8.82 RBC 4.08 L Hgb 12.3 L Hct 35.7 L MCV 87.5 MCH 30.1 MCHC 34.5 RDW Std Deviation 42.6 RDW Coeff of [place] 13.3 Plt Count 144 MPV 10.1 Immature Gran % (Auto) 0.2 Neut % (Auto) 72.1 Lymph % (Auto) 18.7 [place] % (Auto) 7.6 Eos % (Auto) 0.9 Baso % (Auto) 0.5 Immature Gran # (Auto) 0.02 Neut # (Auto) 6.36 Lymph # (Auto) 1.65 [place] # (Auto) 0.67 H Eos # (Auto) 0.08 Baso # (Auto) 0.04 ABG pH ABG pCO2 ABG pO2 ABG HCO3 ABG O2 Saturation ABG Base Excess Fabien Test Barometric Pressure Oxygen Given Sodium Pending Potassium Pending Chloride Pending Carbon Dioxide Pending Anion Gap Pending BUN Pending Creatinine Pending Est Cr Clr Drug Dosing Pending Est GFR ( Amer) Pending Est GFR (Non-Af Amer) Pending BUN/Creatinine Ratio Pending Glucose Pending POC Glucose Calcium Pending Phosphorus Pending Magnesium Pending Random Cortisol Medications Administered Albuterol (Ventolin 0.083% 2.5mg/3ml) 2.5 mg NEB Q6R PRN PRN Reason: Shortness Of Breath Or Wheezing Stop: 05/03/19 15:22 Last Admin: 04/04/19 06:07 Dose: 2.5 mg Documented by: [id number] Admin: 04/03/19 18:59 Dose: 2.5 mg Documented by: [id number] Aspirin (Ecotrin Ectab) [facility] [place] Stop: 05/03/19 08:59 Last Admin: 04/03/19 08:12 Dose: 81 mg Documented by: [id number] Enoxaparin Sodium (Lovenox) 40 mg SQ [facility] Stop: 05/03/19 09:14 Last Admin: 04/03/19 09:48 Dose: 40 mg Documented by: [id number] Famotidine (Pepcid) 20 mg PO BID [facility] Stop: 05/03/19 20:59 Last Admin: 04/03/19 20:09 Dose: 20 mg Documented by: [id number] Lorazepam (Ativan) 0.5 mg in 1 mls @ 0.5 mls/min IV Q6H PRN PRN Reason: Nausea Stop: 05/02/19 09:47 Last Admin: 04/02/19 10:53 Dose: 0.5 mls/min Documented by: [id number] Norepinephrine Bitartrate 8 mg (/ Sodium Chloride) 508 mls @ 12.95 mls/hr IV .Q24H [facility]; Protocol Stop: 05/03/19 12:14 Last Titration: 04/04/19 04:44 Dose: 0 mcg/kg/min, 0 mls/hr Documented by: [id number] Titration: 04/04/19 04:21 Dose: 0.03 mcg/kg/min, 13 mls/hr Documented by: [id number] Titration: 04/04/19 03:15 Dose: 0.04 mcg/kg/min, 17.3 mls/hr Documented by: [id number] Titration: 04/04/19 02:33 Dose: 0.05 mcg/kg/min, 21.6 mls/hr Documented by: [id number] Admin: 04/04/19 01:05 Dose: 0.06 mcg/kg/min, 25.9 mls/hr Documented by: [id number] Cosigned by: [id number] Titration: 04/04/19 01:05 Dose: 0.06 mcg/kg/min, 25.9 mls/hr Documented by: [id number] Cosigned by: [id number] Titration: 04/04/19 00:47 Dose: 0.06 mcg/kg/min, 25.9 mls/hr Documented by: [id number] Titration: 04/03/19 23:52 Dose: 0.07 mcg/kg/min, 30.2 mls/hr Documented by: [id number] Titration: 04/03/19 22:56 Dose: 0.08 mcg/kg/min, 34.5 mls/hr Documented by: [id number] Cosigned by: [id number] Titration: 04/03/19 21:11 Dose: 0.08 mcg/kg/min, 34.5 mls/hr Documented by: [id number] Titration: 04/03/19 20:03 Dose: 0.06 mcg/kg/min, 25.9 mls/hr Documented by: [id number] Titration: 04/03/19 18:35 Dose: 0.04 mcg/kg/min, 17.3 mls/hr Documented by: [id number] Titration: 04/03/19 18:05 Dose: 0.06 mcg/kg/min, 25.9 mls/hr Documented by: [id number] Titration: 04/03/19 17:43 Dose: 0.08 mcg/kg/min, 34.5 mls/hr Documented by: [id number] Titration: 04/03/19 15:30 Dose: 0.09 mcg/kg/min, 38.9 mls/hr Documented by: [id number] Titration: 04/03/19 14:39 Dose: 0.1 mcg/kg/min, 43.2 mls/hr Documented by: [id number] Titration: 04/03/19 14:19 Dose: 0.15 mcg/kg/min, 64.8 mls/hr Documented by: [id number] Titration: 04/03/19 13:19 Dose: 0.2 mcg/kg/min, 86.3 mls/hr Documented by: [id number] Titration: 04/03/19 12:54 Dose: 0.25 mcg/kg/min, 107.9 mls/hr Documented by: [id number] Admin: 04/03/19 12:46 Dose: 0.28 mcg/kg/min, 120.9 mls/hr Documented by: [id number] Cosigned by: [id number] Insulin Aspart (Novolog Flexpen) 0 units SC ACHS [facility]; Protocol Stop: 05/02/19 22:29 Last Admin: 04/03/19 20:12 Dose: Not Given Documented by: [id number] Cosigned by: [id number] Admin: 04/03/19 16:43 Dose: Not Given Documented by: [id number] Cosigned by: [id number] Admin: 04/03/19 12:47 Dose: Not Given Documented by: [id number] Cosigned by: [id number] Ioversol (Optiray 320 125ml) 125 ml IV ONCE PRN PRN Reason: Interaction Checking Stop: 04/06/19 02:30 Last Admin: 04/02/19 02:32 Dose: 118 ml Documented by: [id number] Ticagrelor (Brilinta) 90 mg PO BID [facility] Stop: 05/02/19 09:44 Last Admin: 04/03/19 20:09 Dose: 90 mg Documented by: [id number] Admin: 04/03/19 08:12 Dose: 90 mg Documented by: [id number] Admin: 04/02/19 20:46 Dose: 90 mg Documented by: [id number] Admin: 04/02/19 11:08 Dose: 90 mg Documented by: [id number] PG Care Time/CCT Total # of Minutes Spent Total Time Spent with Patient: Total time spent is greater than 50% in coordination of care (as documented) at patient's floor/unit and/or counseling patient: Resident Activity Tracking Resident Involvement: Resident Care Provided Care Provided: Adult Hospital Medicine (ICU)
[2019-04-04 07:08] LABS: BUN Creatinine Ratio 11.6 (10-20); Calcium 8.5 mg/dl (8.5-10.1); Creatinine Clr Calc Pharmacy 109.8 ml/min; Est GFR (African American) 104.7; Est GFR (Non-African American) 90.4; Magnesium 1.8 mg/dl (1.8-2.4); Phosphorus 2.3 mg/dl (2.5-4.9); Potassium 3.3 mmol/L (3.5-5.1)
[2019-04-04] MEDS ORDERED: POTASSIUM CHLORIDE 20 MEQ TABCR PO STA (07:15)
[2019-04-04] MEDS: ATORVASTATIN 40 MG TAB PO SCH (08:48)
[2019-04-04] MEDS: FAMOTIDINE 20 MG TAB PO SCH ×2 (08:48→20:45)
[2019-04-04] MEDS: TICAGRELOR 90 MG TAB PO SCH ×2 (08:48→20:45)
[2019-04-04] MEDS: ASPIRIN 81 MG ECTAB PO SCH (08:48)
[2019-04-04] MEDS: ENOXAPARIN INJ 40 MG/0.4 ML SYR SQ SCH (08:49)
[2019-04-04] MEDS: INSULIN ASPART 100 UNITS/ML 3 ML PEN SC SCH ×4 (08:56→20:39)
[2019-04-04] MEDS ORDERED: ATORVASTATIN 40 MG TAB PO SCH (09:00)
--- NOTE | 2019-04-04 11:05 | Pharmacy Report ---
Pharmacy Glycemic Sign Off Nt - Date of Service April 04, 2019 - Assessment & Plan ASSESSMENT: * Pharmacy was consulted by Shahla Rivera PA-C per ICU hyperglycemia protocol on 04/02 for glycemic control and to write orders per [facility] inpatient glycemic control protocol. * Patient's A1c 5.7%, was not on an anti-diabetic regimen outpatient, qualifies for pre-diabetes. BSGs slightly elevated although did not go above 200 while patient on norepinephrine. Patient received 20 units of lantus the evening of 04/02 and required no novolog coverage. Patient now off of norepinephrine, tolerating diet, patient currently with only correctional scale ordered, would like to avoid hypoglycemia in setting of acute CVA. Fasting this morning 101. * Patient has been requiring 0 units of insulin per day for adequate glycemic control * BSGs ranging 102-164 mg/dl * Regimen has only required minor adjustments over the past 24hrs to achieve this level of control * Do not anticipate further changes in patient status that would quickly deteriorate glycemic control (i.e. patient to be NPO for upcoming procedure, steroids tapering, starting tube feedings, etc). * Please see recommendations for outpatient antidiabetic regimen below. PLAN FOR INPATIENT GLYCEMIC CONTROL: No changes needed to current regimen. * Continue NovoLog per scale ACHS/Q6hrs while NPO * Goal range = 110-180 mg/dl * CF = 20 mg/dl/unit * Pharmacy is signing off of glycemic consult and will no longer be making adjustments to inpatient regimen. Please feel free to re-consult if needed. Thank you. DISCHARGE RECOMMENDATIONS: * A1c 5.7 % on 04/16/19, patient should follow-up with outpatient provider to discuss pre-diabetes, healthy lifestyle modifications to control blood sugar.
--- NOTE | 2019-04-04 13:55 | Neurology Progress Note ---
Date of Service April 04, 2019 Assessment & Plan (1) Acute CVA (cerebrovascular accident): 1. off pressure with no new symptoms 2. then optimize HTN, HLD, DM LDL <70 3. currently on Brilinta 90 mg BID - care mgt to see if this is covered by insurance prior to discharge- would recommend plavix 75 mg daily 4. continue aspirin 81 mg daily 5. PT/OT speech for discharge needs when appropriate 6. TTE- no ASD 7. ICU for medical management 8. will continue to be available for questions concerns. follow up with neurology after discharge 4-6 weeks Christiana Sethi PAC schedule Supervising Physician Co-Signing Physician Notes Patient was seen and examined. He reports feeling back to him self. Up walking today. He is off vasopressors. - Recommend ASA 81 mg daily and Plavix 75 mg daily for 21 -days, then Plavix 75 mg daily - Recommend Lipitor 80 mg daily - SBP goal< 140 mm Hg, DBP<90 mm Hg Outpatient follow up with neurology in 8-weeks. Will sign off at this time. Please call me with any questions. Subjective Patient seen and examiend. Denies any complaints or concerns. Looking forward to going home. Dwight is a 68 year old male with PMH- HTN, HLD, GERD, AAA 3.6 cm monitored annually, prediabetes, history of nephrolithiasis who presented to [facility] ED secondary to strokelike symptoms 1.5 hours prior to arrival on 04/01/2019 He was sitting at his computer when his tongue felt, "heavy." He further began experiencing right upper and lower extremity weakness, numbness, " my whole right side went numb." and had slurred speech per . EMS was called and stroke alert was initiated. He had a CT scan of brain which revealed 8 mm low attention focus in the right leopoldo, but no evidence of hemorrhage. He had tPa administered at 1400 on 04/01. He had spontaneous resolution of right lower extremity and upper extremity numbness/weakness and improvement in speech. He was also having significant nausea and given phenergan and zofran. He also had an episode of bradycardia with heart rates in high 30s, low 40s which was felt to be secondary to vagal stimulation due to nausea and diaphoresis. He was sent to the [facility] for further monitoring. Over night he had an episode of hypotension and return of symptoms. 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 denies CP, SOB, abdominal pain, one sided weakness, numbness tingling, vision changes, N, V, swallowing issues. 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 5/5 bilaterally, hip flex plantar flex ext 5/5 sensation intact throughout bilaterally UE/LE no pronator drift rapid hand movement and heel to garza no dysmetric movements finger to nose no bi pass Results & Data Vital Signs (Past 12 Hours) Vital Signs Pulse Pulse Pulse Resp BP Pulse Ox Pulse Ox 04/04/19 11:17 94 H 22 131/91 91 04/04/19 10:30 76 26 H 131/70 93 04/04/19 10:00 67 0 L 113/48 L 95 04/04/19 09:30 76 28 H 134/69 91 04/04/19 09:00 84 20 128/68 93 04/04/19 08:30 87 20 106/61 93 04/04/19 08:04 103 H 32 H 113/71 92 04/04/19 07:30 112 H 25 H 144/80 H 91 04/04/19 07:01 101 H 33 H 137/71 87 L 04/04/19 06:30 101 H 29 H 149/83 H 93 04/04/19 06:08 73 22 94 04/04/19 06:00 80 25 H 141/69 H 94 04/04/19 05:30 73 23 116/59 L 95 04/04/19 05:01 74 18 125/64 93 04/04/19 04:30 67 28 H 123/66 94 04/04/19 04:01 64 18 132/62 94 04/04/19 03:30 54 L 17 140/54 L 93 04/04/19 03:25 55 L 90 04/04/19 03:00 52 L 17 125/64 92 04/04/19 02:30 59 L 18 118/83 94 04/04/19 02:00 59 L 28 H 130/59 L 92 Laboratory Results Abnormal lab results 04/03/19 04/03/19 04/04/19 Range/Units 16:36 20:11 05:57 RBC (4.7-6.1) M/uL Hgb (14.0-18.0) g/dL Hct (42-52) % [place] # (Auto) (0.11-0.59) K/uL ABG pH 7.50 H (7.35-7.45) ABG pO2 64 L (80-95) mm/Hg ABG HCO3 27 H (19-24) mmol/L ABG Base Excess 3.5 H (-9-1.8) mEq/L Potassium (3.5-5.1) mmol/L Glucose (70-99) mg/dl POC Glucose 102 H 125 H (70-99) Phosphorus (2.5-4.9) mg/dl 04/04/19 04/04/19 04/04/19 Range/Units 05:57 05:57 06:25 RBC 4.08 L (4.7-6.1) M/uL Hgb 12.3 L (14.0-18.0) g/dL Hct 35.7 L (42-52) % [place] # (Auto) 0.67 H (0.11-0.59) K/uL ABG pH (7.35-7.45) ABG pO2 (80-95) mm/Hg ABG HCO3 (19-24) mmol/L ABG Base Excess (-9-1.8) mEq/L Potassium 3.3 L (3.5-5.1) mmol/L Glucose 106 H (70-99) mg/dl POC Glucose 101 H (70-99) Phosphorus 2.3 L (2.5-4.9) mg/dl Diagnostic Findings no new imaging
--- NOTE | 2019-04-04 14:11 | Hospitalist Progress Note ---
Date of Service April 04, 2019 Assessment & Plan (1) Ischemic stroke: Acute CVA: With left vertebral artery occlusion This is a 68-year-old male with significant PMH of HTN, HLD, GERD, AAA 3.6 cm monitored annually, prediabetes, history of nephrolithiasis who presents to [facility] ED secondary to strokelike symptoms 1.5 hours prior to arrival. Stroke alert initiated [facility] [address] brain negative for acute hemorrhage, but did reveal 8 mm low-tension focus in the right leopoldo. Pt met criteria for TPA administered 1642 on 04/01/19 with spontaneous improvement to RLE/RUE weakness and numbness along with slurred speech MRI of brain w/o : 04/01/19 showed left vertebral occlusion and chronic small vessel ischemic change, including suspected involvement of the left medulla. Old lacunar infarct in the right paramedian leopoldo. No acute intracranial abnormality. 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 Significant vessel irregularity of the left vertebral artery in the region of the left PICA origin. Findings could represent a short segment dissection or thrombotic/atherosclerotic occlusion of a portion of the left vertebral artery. There was no evidence of aneurysm. Neck CTA: Atheromatous changes but no evidence of hemodynamically significant internal carotid artery stenosis; dominate right vertebral artery; Luminal irregularity of the distal left vertebral artery with distal occlusion. This either represents a dissection or atherosclerotic occlusion. Carotid Doppler U/S: No evidence of hemodynamically significant carotid stenosis Repeat Head CT post tPA showed in acute intracranial abnormality/no bleeding or Hge Echocardiogram : EF = 65=70%; Mild concentric LVH; aortic valve sclerosis without significant stenosis; trace aortic regurg; ascending aorta mildly dilated 4.3cm; no interarterial shunt./no ASD pt developed acute /worsening of rt extremity weakness at night of 04/02/2019 with episode of hypotension stat CTA of head neck showed left vertebral artery occlusion second stroke alert was called There was concern that location of CVA in regards to medullary control of BP may have likely resulted in unprovoked, precipitous drop in blood pressure with subsequent perfusion injury and return of CVA symptoms/signs. This was improved overnight with 2.5L NS as well as albumin. given Iv fluid bolus , started on IV pressors to increase MAP ~100 to prevent cerebral hypoperfusion - pt's neurological deficit resolved after BP was stabilized Now off pressors pt started on PO meds and diet after speech eval appreciate neurology eval pt will continue with dual antiplatelets on Brillinta 90 mg BID and aspirin -- will D/C Brillinta and start Plavix instead cont high intensity statin appreciate input from neurology 04/03/2019 -Continues to do well clinically, Resolution of right extremity weakness, Patient will be continued with dual antiplatelet Brilinta 90 mg twice daily/aspirin 81 mg daily at least 3 weeks Then continue on Brilinta daily for lifelong-no major bleeding complication noted ordered for PT OT out Patient follow-up with neurology Possible ROLANDO : Patient was scheduled for sleep study as an outpatient on May 2019 Episodes of desaturation noted overnight overnight pulse oximetry ordered Given on the result of pulse nocturnal- , if patient qualifies,will need arrangement for home CPAP (2) Hypokalemia: Low potassium/low phosphorus Replace and, continue to monitor electrolytes (3) HTN (hypertension): developed recurrence of rt sided neurological deficit with episode of hypotension symptom has resolved pts was on IV pressors to to allow cerebral perfusion, now OFF pressors since 4:40 AM, central line out Plan to downgrade to med/surg telemetry (4) HLD (hyperlipidemia): on atorvastatin 20mg at outpt increased to 80mg for high intensity statin (Lipitor) (5) GERD (gastroesophageal reflux disease): cont H2 kahlil avoid PPI as pt will be on dual antiplatelets due to acute CVA (6) DVT prophylaxis: Lovenox SC Disposition: Plan to downgrade to MedSurg with telemetry Follow up: PCP Dr. Leighann Colunga upon discharge along with appropriate neurology follow up (scheduled by jermain Sethi PA-C) Subjective Patient examined in the ICU. Patient is lying in bed, in no acute distress, comfortable without any weakness or any focal neurological deficits appreciated. He currently denies any fevers, chills, chest pain, shortness of breath, abdominal pain, nausea, vomiting. He also denies any sensory loss, weakness, numbness or tingling. Central line removed, of pressors since 4:40 AM. Review of Systems Review of Systems: All systems reviewed & are unremarkable except as noted in HPI & below Constitutional: no fever and no chills Respiratory: no cough and no dyspnea Cardiovascular: no chest pain, no dyspnea on exertion, no palpitations and no edema Gastrointestinal: no abdominal pain, no nausea and no vomiting Physical Exam Physical Exam: Constitutional: Elderly male in no acute distress WD/WN Eyes: PERRL, conjunctivae normal, anicteric sclerae ENMT: external ear and nose normal, oropharynx normal Neck: trachea midline, no thyromegaly Respiratory: normal respiratory effort, lungs clear to auscultation Cardiovascular: RRR, no murmur, no edema Gastrointestinal (Abdomen): normal bowel sounds, soft, nontender, no hepatosplenomegaly Musculoskeletal: no cyanosis or clubbing, extremities motor strength 5/5 Extremities: strength 5/5 throughout Neurologic: PERRL, EOMI, accommodation nl, no face palsy, no dysarthria Psychiatric: A+Ox3, euthymic affect Results & Data Vital Signs (Past 12 Hours) Vital Signs Pulse Pulse Pulse Resp BP Pulse Ox Pulse Ox 04/04/19 11:17 94 H 22 131/91 91 04/04/19 10:30 76 26 H 131/70 93 04/04/19 10:00 67 0 L 113/48 L 95 04/04/19 09:30 76 28 H 134/69 91 04/04/19 09:00 84 20 128/68 93 04/04/19 08:30 87 20 106/61 93 04/04/19 08:04 103 H 32 H 113/71 92 04/04/19 07:30 112 H 25 H 144/80 H 91 04/04/19 07:01 101 H 33 H 137/71 87 L 04/04/19 06:30 101 H 29 H 149/83 H 93 04/04/19 06:08 73 22 94 04/04/19 06:00 80 25 H 141/69 H 94 04/04/19 05:30 73 23 116/59 L 95 04/04/19 05:01 74 18 125/64 93 04/04/19 04:30 67 28 H 123/66 94 04/04/19 04:01 64 18 132/62 94 04/04/19 03:30 54 L 17 140/54 L 93 04/04/19 03:25 55 L 90 04/04/19 03:00 52 L 17 125/64 92 04/04/19 02:30 59 L 18 118/83 94 Laboratory Results 04/04/19 04/04/19 04/04/19 Range/Units 11:14 06:25 05:57 WBC (4.8-10.8) K/uL RBC (4.7-6.1) M/uL Hgb (14.0-18.0) g/dL Hct (42-52) % MCV (80-100) fL MCH (25-34) pg MCHC (32-36) g/dL RDW Std Deviation (36.4-46.3) fL RDW Coeff of [place] (11.5-14.5) % Plt Count (130-400) K/uL MPV (7.4-10.4) fL Immature Gran % (Auto) % Neut % (Auto) % Lymph % (Auto) % Dewitt % (Auto) % Eos % (Auto) % Baso % (Auto) % Immature Gran # (Auto) (0.00-0.02) K/uL Neut # (Auto) (1.4-6.5) K/uL Lymph # (Auto) (1.2-3.4) K/uL Dewitt # (Auto) (0.11-0.59) K/uL Eos # (Auto) (0-0.5) K/uL Baso # (Auto) (0-0.2) K/uL ABG pH (7.35-7.45) ABG pCO2 (35-46) mmHg ABG pO2 (80-95) mm/Hg ABG HCO3 (19-24) mmol/L ABG O2 Saturation (90-95) % ABG Base Excess (-9-1.8) mEq/L Fabien Test (Pos) Barometric Pressure mm/Hg Oxygen Given Sodium 138 (136-145) mmol/L Potassium 3.3 L (3.5-5.1) mmol/L Chloride 106 (98-107) mmol/L Carbon Dioxide 27 (21-32) mmol/L Anion Gap 5.0 (3-11) BUN 10 (7-18) mg/dl Creatinine 0.86 (0.6-1.4) mg/dl Est Cr Clr Drug Dosing 109.8 ml/min Est GFR ( Amer) 104.7 Est GFR (Non-Af Amer) 90.4 BUN/Creatinine Ratio 11.6 (10-20) Glucose 106 H (70-99) mg/dl POC Glucose 84 101 H (70-99) Calcium 8.5 (8.5-10.1) mg/dl Phosphorus 2.3 L (2.5-4.9) mg/dl Magnesium 1.8 (1.8-2.4) mg/dl 04/04/19 04/04/19 04/03/19 Range/Units 05:57 05:57 20:11 WBC 8.82 (4.8-10.8) K/uL RBC 4.08 L (4.7-6.1) M/uL Hgb 12.3 L (14.0-18.0) g/dL Hct 35.7 L (42-52) % MCV 87.5 (80-100) fL MCH 30.1 (25-34) pg MCHC 34.5 (32-36) g/dL RDW Std Deviation 42.6 (36.4-46.3) fL RDW Coeff of [place] 13.3 (11.5-14.5) % Plt Count 144 (130-400) K/uL MPV 10.1 (7.4-10.4) fL Immature Gran % (Auto) 0.2 % Neut % (Auto) 72.1 % Lymph % (Auto) 18.7 % Dewitt % (Auto) 7.6 % Eos % (Auto) 0.9 % Baso % (Auto) 0.5 % Immature Gran # (Auto) 0.02 (0.00-0.02) K/uL Neut # (Auto) 6.36 (1.4-6.5) K/uL Lymph # (Auto) 1.65 (1.2-3.4) K/uL Dewitt # (Auto) 0.67 H (0.11-0.59) K/uL Eos # (Auto) 0.08 (0-0.5) K/uL Baso # (Auto) 0.04 (0-0.2) K/uL ABG pH 7.50 H (7.35-7.45) ABG pCO2 35 (35-46) mmHg ABG pO2 64 L (80-95) mm/Hg ABG HCO3 27 H (19-24) mmol/L ABG O2 Saturation 93.0 (90-95) % ABG Base Excess 3.5 H (-9-1.8) mEq/L Fabien Test Pos (Pos) Barometric Pressure 740.5 mm/Hg Oxygen Given ROOM AIR Sodium (136-145) mmol/L Potassium (3.5-5.1) mmol/L Chloride (98-107) mmol/L Carbon Dioxide (21-32) mmol/L Anion Gap (3-11) BUN (7-18) mg/dl Creatinine (0.6-1.4) mg/dl Est Cr Clr Drug Dosing ml/min Est GFR ( Amer) Est GFR (Non-Af Amer) BUN/Creatinine Ratio (10-20) Glucose (70-99) mg/dl POC Glucose 125 H (70-99) Calcium (8.5-10.1) mg/dl Phosphorus (2.5-4.9) mg/dl Magnesium (1.8-2.4) mg/dl 04/03/19 Range/Units 16:36 WBC (4.8-10.8) K/uL RBC (4.7-6.1) M/uL Hgb (14.0-18.0) g/dL Hct (42-52) % MCV (80-100) fL MCH (25-34) pg MCHC (32-36) g/dL RDW Std Deviation (36.4-46.3) fL RDW Coeff of [place] (11.5-14.5) % Plt Count (130-400) K/uL MPV (7.4-10.4) fL Immature Gran % (Auto) % Neut % (Auto) % Lymph % (Auto) % Dewitt % (Auto) % Eos % (Auto) % Baso % (Auto) % Immature Gran # (Auto) (0.00-0.02) K/uL Neut # (Auto) (1.4-6.5) K/uL Lymph # (Auto) (1.2-3.4) K/uL Dewitt # (Auto) (0.11-0.59) K/uL Eos # (Auto) (0-0.5) K/uL Baso # (Auto) (0-0.2) K/uL ABG pH (7.35-7.45) ABG pCO2 (35-46) mmHg ABG pO2 (80-95) mm/Hg ABG HCO3 (19-24) mmol/L ABG O2 Saturation (90-95) % ABG Base Excess (-9-1.8) mEq/L Fabien Test (Pos) Barometric Pressure mm/Hg Oxygen Given Sodium (136-145) mmol/L Potassium (3.5-5.1) mmol/L Chloride (98-107) mmol/L Carbon Dioxide (21-32) mmol/L Anion Gap (3-11) BUN (7-18) mg/dl Creatinine (0.6-1.4) mg/dl Est Cr Clr Drug Dosing ml/min Est GFR ( Amer) Est GFR (Non-Af Amer) BUN/Creatinine Ratio (10-20) Glucose (70-99) mg/dl POC Glucose 102 H (70-99) Calcium (8.5-10.1) mg/dl Phosphorus (2.5-4.9) mg/dl Magnesium (1.8-2.4) mg/dl Medications Administered Current Inpatient Medications Albuterol (Ventolin 0.083% 2.5mg/3ml) 2.5 mg NEB Q6R PRN PRN Reason: Shortness Of Breath Or Wheezing Stop: 05/03/19 15:22 Last Admin: 04/04/19 06:07 Dose: 2.5 mg Documented by: Aspirin (Ecotrin Ectab) 81 mg PO QAM RITCHIE Stop: 05/03/19 08:59 Last Admin: 04/04/19 08:48 Dose: 81 mg Documented by: Atorvastatin Calcium (Lipitor) 80 mg PO DAILY RITCHIE Stop: 05/04/19 08:59 Last Admin: 04/04/19 08:48 Dose: 80 mg Documented by: Dextrose (Dextrose 50%) 25 - 50 ml IV UD PRN; Protocol PRN Reason: Hypoglycemia Protocol Stop: 05/02/19 22:29 Enoxaparin Sodium (Lovenox) 40 mg SQ QAM RITCHIE Stop: 05/03/19 09:14 Last Admin: 04/04/19 08:49 Dose: 40 mg Documented by: Famotidine (Pepcid) 20 mg PO BID [facility] Stop: 05/03/19 20:59 Last Admin: 04/04/19 08:48 Dose: 20 mg Documented by: Glucagon (Glucagen) 1 mg IM UD PRN; Protocol PRN Reason: Hypoglycemia Protocol Stop: 05/02/19 22:29 Glucose (Glucose 40%) 15 - 30 gm PO UD PRN; Protocol PRN Reason: Hypoglycemia Protocol Stop: 05/02/19 22:29 Glucose (Dex4 Glucose) 4 - 8 tabs PO UD PRN; Protocol PRN Reason: Hypoglycemia Protocol Stop: 05/02/19 22:29 Heparin Sodium (Beef Lung) (Heparin Sod 10 Unit/Ml Flush) 5 ml FLUSH PRN PRN PRN Reason: Flush Stop: 05/03/19 02:04 Sodium Chloride (Nss) 250 mls @ 15 mls/hr IV .[id number] PRN PRN Reason: For Transfusion Stop: 05/02/19 08:45 Lorazepam (Ativan) 0.5 mg in 1 mls @ 0.5 mls/min IV Q6H PRN PRN Reason: Nausea Stop: 05/02/19 09:47 Last Admin: 04/02/19 10:53 Dose: 0.5 mls/min Documented by: Insulin Aspart (Novolog Flexpen) 0 units SC ACHS RITCHIE; Protocol Stop: 05/02/19 22:29 Last Admin: 04/04/19 11:23 Dose: Not Given Documented by: Ioversol (Optiray 320 125ml) 125 ml IV ONCE PRN PRN Reason: Interaction Checking Stop: 04/06/19 02:30 Last Admin: 04/02/19 02:32 Dose: 118 ml Documented by: Miscellaneous (Carbohydrates For Hypoglycemia) 15 - 30 gm PO UD PRN PRN Reason: Hypoglycemia Treatment Stop: 05/02/19 22:29 Miscellaneous Information (Pharmacist Discharge Med Rec Consult) 1 ea N/A UD PRN PRN Reason: Consult Stop: 05/01/19 19:35 Polyethylene Glycol (Miralax Powder Packet) 17 gm PO DAILY PRN PRN Reason: Constipation Stop: 05/03/19 15:22 Ticagrelor (Brilinta) 90 mg PO BID RITCHIE Stop: 05/02/19 09:44 Last Admin: 04/04/19 08:48 Dose: 90 mg Documented by:
[2019-04-05 07:24] LABS: Basophils # (auto) 0.02 K/uL (0-0.2); Basophils % (auto) 0.2 %; Eosinophils # (auto) 0.18 K/uL (0-0.5); Eosinophils % (auto) 2.1 %; Hematocrit (blood only) 39.5 % (42-52); Hemoglobin 13.5 g/dL (14.0-18.0); Immature Granulocytes # (auto) 0.01 K/uL (0.00-0.02); Immature Granulocytes % (auto) 0.1 %; Lymphocytes # (auto) 1.69 K/uL (1.2-3.4); Lymphocytes % (auto) 19.3 %; Mean Corpuscular Hemoglobin 30.1 pg (25-34); Mean Corpuscular Hgb Conc 34.2 g/dL (32-36); Mean Corpuscular Volume 88.2 fL (80-100); Mean Platelet Volume 10.6 fL (7.4-10.4); Monocytes # (auto) 0.66 K/uL (0.11-0.59); Monocytes % (auto) 7.5 %; Neutrophils # (auto) 6.21 K/uL (1.4-6.5); Neutrophils % (auto) 70.8 %; Platelet Count 157 K/uL (130-400); RDW Coefficient of Variation 13.3 % (11.5-14.5); RDW Standard Deviation 42.1 fL (36.4-46.3); Red Blood Count 4.48 M/uL (4.7-6.1); White Blood Count 8.77 K/uL (4.8-10.8)
[2019-04-05 07:58] LABS: BUN Creatinine Ratio 13.3 (10-20); Calcium 8.9 mg/dl (8.5-10.1); Est GFR (African American) 91.6; Phosphorus 3.5 mg/dl (2.5-4.9)
[2019-04-05] MEDS ORDERED: CLOPIDOGREL BISULFATE 75 MG TAB PO SCH (09:00)
[2019-04-05] MEDS: ENOXAPARIN INJ 40 MG/0.4 ML SYR SQ SCH (09:11)
[2019-04-05] MEDS: ATORVASTATIN 40 MG TAB PO SCH (09:11)
[2019-04-05] MEDS: FAMOTIDINE 20 MG TAB PO SCH (09:11)
[2019-04-05] MEDS: ASPIRIN 81 MG ECTAB PO SCH (09:11)
[2019-04-05 09:14] LABS: Potassium 3.5 mmol/L (3.5-5.1)
[2019-04-05 09:15] LABS: Magnesium 1.9 mg/dl (1.8-2.4)
[2019-04-05] MEDS: INSULIN ASPART 100 UNITS/ML 3 ML PEN SC SCH (09:35)
[2019-04-05] MEDS ORDERED: STROKE PATIENT DISCHARGE STA (09:58)
--- NOTE | 2019-04-05 10:01 | Discharge Summary ---
Date of Service April 05, 2019 Admission HPI Per Admitting Provider This is a 68-year-old male with significant PMH of HTN, HLD, GERD, AAA 3.6 cm monitored annually, prediabetes, history of nephrolithiasis who presents to [facility] ED secondary to strokelike symptoms 1.5 hours prior to arrival. was at bedside. He was sitting at his computer when his tongue felt, "heavy." He further began experiencing right upper and lower extremity weakness, numbness, " my whole right side went numb." noticed patient having significant slurred speech. EMS was called and stroke alert was initiated. In ED patient underwent CT scan of brain which revealed 8 mm low attention focus in the right leopoldo, but no evidence of hemorrhage. He met criteria for TPA; therefore, this was administered at 16:42. He had spontaneous resolution of right lower extremity and upper extremity numbness/weakness and improvement in speech. After administration he did have significant nausea and therefore Zofran and Phenergan were also administered. During ED evaluation he did have episode of bradycardia with heart rates in high 30s, low 40s which was felt to be secondary to vagal stimulation due to nausea and diaphoresis. Symptoms resolved transiently. During my evaluation patient feels much improved, but very drowsy. He is complaining of right calf cramping. He denies f/c/s, recent illness, dizziness, lightheadedness, syncope, change in vision, change in hearing, chest pain, shortness breath, cough, hemoptysis, palpitations, nausea, vomiting, abdominal pain, change in bowel or urinary habits. He does currently feel he is having difficulty swallowing. He denies hx of CVA or family hx of CVA. Admission Exam Per Admitting Provider Constitutional: WD/WN, fatigue/ill appearing male, vitals as above, NAD, sitting up in bed, pleasant, conversing easily Head: Normocephalic, Atraumatic Eyes: PERRL, conjunctivae normal, anicteric sclerae, slight L eye ptosis ENMT: external ear and nose normal, oropharynx dry mucous membranes Neck: trachea midline, no thyromegaly normal visual inspection Respiratory: normal respiratory effort, lungs clear to auscultation, no wheeze, rales, rhonchi. Normal insp/exp effort, no accessory muscle use Cardiovascular: RRR, no murmur, no edema Vessels: no JVD or carotid bruit Chest: normal inspection of chest Abdomen: normal bowel sounds, soft, nontender, no hepatosplenomegaly Musculoskeletal: no cyanosis or clubbing, extremities motor strength 5/5 Skin: no rashes, warm and dry normal turgor Neurologic: PERRL, EOMI, accommodation nl, mild left facial droop with mild residual dysarthria CN's II-XI intact bilaterally and moves all extremities, point to point intact, negative pronator drift Psychiatric: A+Ox3, euthymic affect Lymphatic: no cervical or axillary lymphadenopathy : deferred Principal Diagnosis Ischemic stroke with left vertebral artery occlusion, hypokalemia, hypertension, prediabetes Discharge Exam Constitutional: Elderly male in no acute distress WD/WN Eyes: PERRL, conjunctivae normal, anicteric sclerae ENMT: external ear and nose normal, oropharynx normal Neck: trachea midline, no thyromegaly Respiratory: normal respiratory effort, lungs clear to auscultation Cardiovascular: RRR, no murmur, no edema Gastrointestinal (Abdomen): normal bowel sounds, soft, nontender, no hepatosplenomegaly Musculoskeletal: no cyanosis or clubbing, extremities motor strength 5/5 Extremities: strength 5/5 throughout Neurologic: PERRL, EOMI, accommodation nl, no face palsy, no dysarthria Psychiatric: A+Ox3, euthymic affect Discharge Data Allergies Allergy/AdvReac Type Severity Reaction Status Date / Time No Known Allergies Allergy Verified 04/01/19 16:30 Consultations 04/01/19 17:22 ED Decision to Admit Stat 04/01/19 18:03 Consult Aeronautical Engineering Professor Routine Consult Neurology Routine 04/01/19 19:14 Consult Case Management - Discharge Planning Routine Consult Case Management - Discharge Planning Routine Ordered Studies 04/01/19 16:07 CT head/brain wo con Stat 04/01/19 18:03 MR brain wo con Routine 04/01/19 19:14 US carotid doppler BI Routine 04/02/19 01:50 CT angio head w con Urgent CT angio neck with con Urgent IMPRESSION: 1. Occlusion of the intradural portion of the left vertebral artery with reconstitution at the basilar confluence. Significant vessel irregularity of the left vertebral artery in the region of the left PICA origin. Findings could represent a short segment dissection or thrombotic/atherosclerotic occlusion of a portion of the left vertebral artery. 2. No evidence of aneurysm. 04/02/19 01:57 CT head/brain wo con Urgent 04/02/19 08:44 US point of care ultrasound Routine 04/02/19 12:10 US point of care ultrasound Routine 04/02/19 16:00 CT head/brain wo con Routine Hospital Course (1) Ischemic stroke: Acute CVA: With left vertebral artery occlusion This is a 68-year-old male with significant PMH of HTN, HLD, GERD, AAA 3.6 cm monitored annually, prediabetes, history of nephrolithiasis who presents to [facility] ED secondary to strokelike symptoms 1.5 hours prior to arrival. Stroke alert initiated [facility] [address] brain negative for acute hemorrhage, but did reveal 8 mm low-tension focus in the right leopoldo. Pt met criteria for TPA administered 1642 on 04/01/19 with spontaneous improvement to RLE/RUE weakness and numbness along with slurred speech MRI of brain w/o : 04/01/19 showed left vertebral occlusion and chronic small vessel ischemic change, including suspected involvement of the left medulla. Old lacunar infarct in the right paramedian leopoldo. No acute intracranial abnormality. 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 Significant vessel irregularity of the left vertebral artery in the region of the left PICA origin. Findings could represent a short segment dissection or thrombotic/atherosclerotic occlusion of a portion of the left vertebral artery. There was no evidence of aneurysm. Neck CTA: Atheromatous changes but no evidence of hemodynamically significant internal carotid artery stenosis; dominate right vertebral artery; Luminal irregularity of the distal left vertebral artery with distal occlusion. This either represents a dissection or atherosclerotic occlusion. Carotid Doppler U/S: No evidence of hemodynamically significant carotid stenosis Echocardiogram : EF = 65=70%; Mild concentric LVH; aortic valve sclerosis without significant stenosis; trace aortic regurg; ascending aorta mildly dilated 4.3cm; no interarterial shunt./no ASD Pt developed acute /worsening of rt extremity weakness at night of 04/02/2019 with episode of hypotension stat CTA of head neck showed left vertebral artery occlusion stroke alert was called There was concern that location of CVA in regards to medullary control of BP may have likely resulted in unprovoked, precipitous drop in blood pressure with subsequent perfusion injury and return of CVA symptoms/signs. This was improved overnight with 2.5L NS as well as albumin. given Iv fluid bolus , started on IV pressors to increase MAP ~100 to prevent cerebral hypoperfusion - pt's neurological deficit resolved after BP was stabilized Now off pressors pt started on PO meds and diet after speech eval pt will continue with dual antiplatelets on Aspirin and Plavix for 21 days , then will cont. Plavix-- (stopped Brillinta and started Plavix instead) cont high intensity statin (Lipitor 80 mg) appreciate input from neurology 04/03/2019 -Continues to do well clinically, Resolution of right extremity weakness out Patient follow-up with neurology Possible ROLANDO : Patient was scheduled for sleep study as an outpatient on May 2019 Episodes of desaturation noted overnight overnight pulse oximetry ordered Nocturnal hypoxia noted -patient was given prescription for supplemental oxygen to use via nasal cannula 2 L/min, at bedtime. He was also directed to have outpatient sleep study done for possible ROLANDO (already scheduled) and may qualify for CPAP as outpatient (2) Hypokalemia: Low potassium/low phosphorus Replace and, continue to monitor electrolytes (3) HTN (hypertension): developed recurrence of rt sided neurological deficit with episode of hypotension symptom has resolved pts was on IV pressors to allow cerebral perfusion, now OFF pressors since 4:40 AM, central line out Downgrade to med/surg telemetry (03/04/2019) On MedSurg floor, patient is hypertensive, will be discharged back on his losartan however rest of his BP meds held for now. He will follow-up with his PCP who may restart the rest of his medications then (depending on patient's blood pressure). (4) HLD (hyperlipidemia): on atorvastatin 20mg at outpt increased to 80mg for high intensity statin (Lipitor) (5) GERD (gastroesophageal reflux disease): cont H2 kahlli avoid PPI as pt will be on dual antiplatelets due to acute CVA (6) DVT prophylaxis: Lovenox SC Disposition: Plan to DC home today Follow up: PCP and neurology follow up (scheduled by jermain Sethi PA-C) Total Time Total Time Spent Total Time Spent (In Minutes): 45 Total Time Includes: Examination of the Patient, Discharge Planning, Medication Reconciliation and Communication With Other Providers Discharge Plan Discharge Items Patient Disposition: Home - Self-Care Reason For Visit: CVA S/P TPA Discharge Diagnosis: CVA Activity: Resume your previous activity Activity Comment: as tolerated, PT script given on discharge Non-emergency contact: Primary Care Provider and Neurologist Call non-emergency contact if: you have any medication questions and your symptoms worsen Follow-up/Referrals: Juanita Colunga DO [Primary Care Provider] - Diet: Heart Healthy Addtl Attending Provider Instructions: Take aspirin and Plavix (clopidogrel) every day for 21 days, then take Plavix daily (per neurology recommendations) Please make sure to follow-up with neurology office in 4 to 6 weeks Follow up with your PCP on 04/11/2019 at 11:05 Some of your blood pressure medications were put on hold, you will need to discuss with your PCP when/ if to re-start them. Dose of atorvastatin has changed (increased). Please use oxygen, 2 L via nasal cannula at bedtime, prescription for oxygen will be given to you on discharge Make sure to follow-up, and have a sleep study done for possible ROLANDO as outpatient Pending Studies at Discharge: No Stand-Alone Forms: Medications to Prevent Stroke, [facility], Smoking Cessation Medications and DC Order Prescriptions: New clopidogrel 75 mg Tablet 75 mg PO QAM 30 Days Qty: 30 RF: 0 famotidine 20 mg Tablet 20 mg PO BID 30 Days Qty: 60 RF: 0 atorvastatin 40 mg Tablet 80 mg PO DAILY 30 Days Qty: 60 RF: 0 Continued aspirin 81 mg Tablet,Delayed Release (Dr/Ec) 81 mg PO QAM RF: 0 lisinopril 30 mg Tablet 30 mg PO BID RF: 0 Discontinued atorvastatin 20 mg Tablet 20 mg PO DAILY RF: 0 amlodipine 5 mg Tablet 5 mg PO DAILY RF: 0 hydrochlorothiazide 12.5 mg Tablet 12.5 mg PO DAILY RF: 0 omeprazole 20 mg Tablet,Delayed Release (Dr/Ec) 20 mg PO DAILY RF: 0 Discharge Orders: Discharge Order (Routine); Ordered 04/05/19 Ordered By: Marcelino Foster Admission Data Admit Date/Time: 04/01/19 17:53 Attending Provider: Marcelino Foster Admit Provider: Luca Betlran Primary Care Provider: Juanita Colunga Other Providers: Kymberly Davila ; Luca Beltran ; Javier Oh Benjamin B. Other Interventions: Discharge Summary Assessment (RN) Last Done: 04/05/19 09:37 DC Date/Time DO NOT enter until pt leaves facility: 04/05/19 11:49
--- NOTE | 2019-04-05 10:42 | Pharmacy Report ---
Pharmacist Stroke Counseling - Date of Service April 05, 2019 - Scope: Pharmacy has been consulted to provide medication discharge counseling for this patient admitted with ischemic stroke as per the Pharmacist Discharge Counseling for Stroke Patients Protocol. - Medications on Discharge: Home Medications Medication Instructions Recorded Confirmed aspirin 81 mg PO QAM 07/29/18 04/01/19 lisinopril 30 mg PO BID 04/01/19 04/01/19 New Rx's Medication Instructions Recorded atorvastatin 80 mg PO DAILY 30 Days #60 tab 04/05/19 clopidogrel 75 mg PO QAM 30 Days #30 tab 04/05/19 famotidine 20 mg PO BID 30 Days #60 tab 04/05/19 - Action: The above medications, specifically ones for stroke treatment/prophylaxis, have been reviewed in detail with the patient and his prior to discharge. This includes indication, common adverse reactions, drug interactions, and medication administration. Medication counseling has been employed using the teach-back method to ensure understanding. - Outcome: The patient and his have demonstrated understanding of the medications. Please note, they are aware that the pharmacist will call them within 72 hours post-discharge to confirm that the appropriate medications are being taken and answer any further medication related questions the patient might have at that time. Contact information Individual to be contacted: Patient Phone number: [phone] Best time to call: anytime Additional comments: Patient and his understood changes in medication regimen, including changing omeprazole to famotidine d/t interaction with clopidogrel. Taking both aspirin + copidogrel x 21 days, then just clopidogrel, and changing HCTZ and amlodopine to lisinopril. And increasing atrovastatin from 20mg to 80mg daily. Thank you for allowing pharmacy to be involved in the care of this patient. Please call [phone] or [phone] with any additional questions
--- NOTE | 2019-04-06 14:25 | Pharmacy Report ---
Pharmacist Post D/C Phone Note - Phone Note: Date of phone call: April 06, 2019. Individual with whom pharmacist spoke to: BEATRIZ THOMPSON Sr The following questions were reviewed during the phone call with responses listed below each: Can you tell me the medications that you are currently taking as well as when and how you take each medication? -See Table Below When have you missed any doses of your medications? - none What side effects are you having from your medications, specifically, the new medications you were started on? - none What questions do you have about your medications? - none What problems are you having obtaining your medications? - none, picked them all up today. When is your next appointment with your primary care doctor? - Next week on 04/11 Additional comments: - Reviewed medication changes as we did yesterday during counseling - patient is doing great and is taking all medications correctly. As per the Pharmacist Discharge Counseling for Stroke Patients Protocol, this phone call has been completed within 72 hours of discharge. Thank you for allowing us to be involved in the care of this patient. - Home Medications: Home Medications Medication Instructions Recorded Confirmed aspirin 81 mg PO QAM 07/29/18 04/01/19 lisinopril 30 mg PO BID 04/01/19 04/01/19 New Rx's Medication Instructions Recorded atorvastatin 80 mg PO DAILY 30 Days #60 tab 04/05/19 clopidogrel 75 mg PO QAM 30 Days #30 tab 04/05/19 famotidine 20 mg PO BID 30 Days #60 tab 04/05/19
== END 2019-04-05 11:49 | disposition home or self-care (01) | DRG 62 ==
LOC: ED 16:12 → SUATTDRO 17:53 → 1E 17:53 → 2N 04-04 15:29